=== PATIENT | female | born 1935 | race Caucasian/White ===

== ENCOUNTER 2016-12-26 18:04 | Emergency (ER) | payer MEDICARE, OTHER ==
[2016-12-26 18:04] VITALS: BMI 32.8
[2016-12-26 19:26] VITALS: PULSE 83; RESP 16; TEMP 98.3; O2SAT 96
--- NOTE | 2016-12-26 19:50 | ED PDOC ---
HPI: Trauma/Fall - HPI Time Seen by Provider: 12/26/16 19:35 Chief Complaint (Nursing): Trauma Chief Complaint (Provider): fall History Per: Patient History/Exam Limitations: no limitations Onset/Duration Of Symptoms: Hrs (x 1) Injury Occurred (Timing): Hours Ago: (x1) Associated Symptoms: denies: Dizziness, Dazed, LOC, Seizure, Memory Impairment Additional Complaint(s): Syl Argueta is an 81 year old female, with a previous medical history of breast cancer, lung cancer, DVT, rheumatoid arthritis and multiple myeloma, who presents to the ED for the evaluation of head trauma she sustained an hour prior to arrival. Pt reports turning to the side and stumbling which caused her to fall and hit her head. She denies dizziness or syncope prior to all. Pt reports no loss of consciousness, dizziness, headache, changes in speech, changes in vision, numbness, tingling or impaired memory since fall. Patient states she came to ED because she is on coumadin. INR level was measured last week and it was 2.4. PMD: Lawrence aDi MD in [facility] Past Medical History Reviewed: Historical Data, Nursing Documentation, Vital Signs Vital Signs: Last Vital Signs Temp 98.3 F 12/26/16 19:22 Pulse 83 12/26/16 19:22 Resp 16 12/26/16 19:22 BP 164/86 H 12/26/16 19:22 Pulse Ox 96 12/26/16 19:22 - Medical History PMH: Anemia, Atrial Fibrillation, Deep Vein Thrombosis, Hypothyroidism, Rheumatoid Arthritis - Surgical History Other surgeries: lung resection, right breast surgery, thyroidectomy, parathyroid surgery x 2 - Family History Family History: States: No Known Family Hx - Living Arrangements Living Arrangements: Alone - Social History Current smoker - smoking cessation education provided: No Ex-Smoker (has not smoked in the last 12 months): No Alcohol: None Drugs: Denies - Home Medications Home Medications: Ambulatory Orders Medication Instructions Recorded Levothyroxine Sodium [Levoxyl] 100 mcg PO DAILY 12/26/16 Methotrexate/Pf [Rasuvo] 20 mg SC QWK 12/26/16 Warfarin [Coumadin] 3.5 mg PO DAILY 12/26/16 - Allergies Allergies/Adverse Reactions: Allergies Allergy/AdvReac Type Severity Reaction Status Date / Time No Known Allergies Allergy Verified 12/26/16 19:22 Review of Systems ROS Statement: Except As Marked, All Systems Reviewed And Found Negative Eyes: Negative for: Vision Change Gastrointestinal: Negative for: Nausea, Vomiting Neurological: Positive for: Other (head injury s/p fall, denies dizziness or syncope prior to fall. ). Negative for: Numbness, Incoordination, Change in Speech, Confusion, Altered Mental Status, Headache, Dizziness Physical Exam - Reviewed Nursing Documentation Reviewed: Yes Vital Signs Reviewed: Yes - Physical Exam Appears: Positive for: Well, Non-toxic, No Acute Distress Head Exam: Positive for: ATRAUMATIC, NORMAL INSPECTION, NORMOCEPHALIC Skin: Positive for: Normal Color, Warm, Dry Eye Exam: Positive for: Normal appearance, EOMI, PERRL. Negative for: Nystagmus ENT: Positive for: Normal ENT Inspection Neck: Positive for: Normal, Painless ROM Cardiovascular/Chest: Positive for: Regular Rate, Rhythm Respiratory: Positive for: CNT, Normal Breath Sounds Gastrointestinal/Abdominal: Positive for: Normal Exam, Bowel Sounds, Soft. Negative for: Tenderness Back: Positive for: Normal Inspection. Negative for: L CVA Tenderness, R CVA Tenderness, Vertebral Tenderness Extremity: Positive for: Normal ROM. Negative for: Tenderness, Calf Tenderness , Deformity Neurologic/Psych: Positive for: Alert, Oriented, Gait (steady). Negative for: Aphasia, Facial Droop - ECG O2 Sat by Pulse Oximetry: 96 (RA) Pulse Ox Interpretation: Normal - Other Rad CT head X-Ray: Read By Radiologist X-Ray Interpretation: see below Medical Decision Making Medical Decision Making: Initial Impression: 81 year old female with head injury s/p fall Initial Plan: * CT head w/o contrast * Pt declined pain medication in the ED at this time. 21:00 CT head FINDINGS: Brain: Mild atrophy. No intracranial hemorrhage. No mass. Minimal decreased attenuation within periventricular white matter. Chronic lacunar infarct within LEFT basal ganglia. No edema. Ventricles: No hydrocephalus. Bones/joints: No acute fracture. Soft tissues: Unremarkable. Vasculature: Mild atherosclerotic disease of intracranial arteries. Sinuses: Scattered minimal mucosal thickening. Mastoid air cells: No mastoid effusion. Orbits: Unremarkable as visualized. IMPRESSION: 1. No intracranial hemorrhage. 2. Nonspecific white matter changes. 3. Incidental/non-acute findings are described above. Patient aware of CT findings, she was advised to take Tylenol for pain as needed and follow up with primary doctor in 1-2 days. Patient aware she can return to ED at any time if acutely worse. Scribe Attestation: Documented by Ana Dale, acting as a scribe for Nova Shell PA-C. Provider Scribe Attestation: All medical record entries made by the Scribe were at my direction and personally dictated by me. I have reviewed the chart and agree that the record accurately reflects my personal performance of the history, physical exam, medical decision making, and the department course for this patient. I have also personally directed, reviewed, and agree with the discharge instructions and disposition. Disposition - Clinical Impression Clinical Impression: Head injury - Patient ED Disposition Is Patient to be Admitted: No Counseled Patient/Family Regarding: Studies Performed, Diagnosis, Need For Followup - Disposition Referrals: [facility] [Outside] Disposition: Routine/Home Disposition Time: 21:07 Condition: STABLE Additional Instructions: Tylenol as needed for pain. Follow up with primary doctor in 1-2 days. Return to ED any time if acutely worse. Instructions: Head Injury (ED)
--- NOTE | 2016-12-26 21:01 | CT ---
EXAM: CT Head Without Intravenous Contrast. CLINICAL HISTORY: 81 years old, female; Injury or trauma; Fall; Initial encounter; Concussion / head injury; With loss of consciousness; Not specified; Patient HX: Pt states: Ca breast, ca. Lung TECHNIQUE: Axial computed tomography images of the head/brain without intravenous contrast. This CT exam was performed using one or more of the following dose reduction techniques: automated exposure control, adjustment of the mA and/or kV according to patient size, and/or use of iterative reconstruction technique. Coronal and sagittal reformatted images were created and reviewed. COMPARISON: CT - HEAD^HEAD ROUTINE (ADULT) 06/07/2010 9:55:31 AM FINDINGS: Brain: Mild atrophy. No intracranial hemorrhage. No mass. Minimal decreased attenuation within periventricular white matter. Chronic lacunar infarct within LEFT basal ganglia. No edema. Ventricles: No hydrocephalus. Bones/joints: No acute fracture. Soft tissues: Unremarkable. Vasculature: Mild atherosclerotic disease of intracranial arteries. Sinuses: Scattered minimal mucosal thickening. Mastoid air cells: No mastoid effusion. Orbits: Unremarkable as visualized. IMPRESSION: 1. No intracranial hemorrhage. 2. Nonspecific white matter changes. 3. Incidental/non-acute findings are described above.
[2016-12-26 21:26] VITALS: BP 127/67
== END 2016-12-26 21:14 | disposition home or self-care (01) ==
LOC: H.ER 18:04
DX: S09.90XA Unspecified injury of head, initial encounter (principal); W19.XXXA Unspecified fall, initial encounter; Y93.9 Activity, unspecified

== ENCOUNTER 2017-07-01 06:03 | Emergency (ER) | payer MEDICARE, OTHER ==
[2017-07-01 06:04] VITALS: BMI 32.8
[2017-07-01 06:26] VITALS: BP 154/75; PULSE 81; RESP 18; TEMP 97.6; O2SAT 98
--- NOTE | 2017-07-01 06:50 | ED PDOC ---
HPI: Female Pain Time Seen by Provider: 07/01/17 06:17 Chief Complaint (Nursing): Female Genitourinary Chief Complaint (Provider): Vaginal bleeding History Per: Patient History/Exam Limitations: no limitations Onset/Duration Of Symptoms: Days (x1) Current Symptoms Are (Timing): Gone Now Additional Complaint(s): Syl is an 82 y/o female who presents to the ED complaining of vaginal bleeding , onset just prior to arrival. Patient is wearing a pessary device for prolapse. She felt some vaginal discomfort when she woke up this morning. The pessary device was moved, and she noticed some clots from the vagina. She denies fever, chest pain, and shortness of breath. Currently there is no bleeding. Patient is on Coumadin for her history of PE and DVT, and was worried about excessive bleeding, which prompted this ED visit. PMD: [facility] provider Past Medical History Reviewed: Historical Data, Nursing Documentation, Vital Signs Vital Signs: Last Vital Signs Temp 97.6 F 07/01/17 06:20 Pulse 81 07/01/17 06:20 Resp 18 07/01/17 06:20 BP 154/75 H 07/01/17 06:20 Pulse Ox 98 07/01/17 06:20 - Medical History PMH: Anemia, Atrial Fibrillation, Deep Vein Thrombosis, HTN, Hypercholesterolemia, Hypothyroidism, Malignancy (Lung cancer), Pulmonary Embolism, Rheumatoid Arthritis Denies: Chronic Kidney Disease - Surgical History Surgical History: Hernia Repair Other surgeries: Hysterectomy - Family History Family History: States: Unknown Family Hx - Social History Current smoker - smoking cessation education provided: No Alcohol: None Drugs: Denies - Home Medications Home Medications: Ambulatory Orders Medication Instructions Recorded Levothyroxine Sodium [Levoxyl] 100 mcg PO DAILY 12/26/16 Methotrexate/Pf [Rasuvo] 20 mg SC QWK 12/26/16 Warfarin [Coumadin] 3.5 mg PO DAILY 12/26/16 - Allergies Allergies/Adverse Reactions: Allergies Allergy/AdvReac Type Severity Reaction Status Date / Time No Known Allergies Allergy Verified 07/01/17 06:20 Review of Systems ROS Statement: Except As Marked, All Systems Reviewed And Found Negative Constitutional: Negative for: Fever Cardiovascular: Negative for: Chest Pain Respiratory: Negative for: Shortness of Breath Genitourinary Female: Positive for: Vaginal Bleeding Physical Exam - Reviewed Nursing Documentation Reviewed: Yes Vital Signs Reviewed: Yes - Physical Exam Appears: Positive for: Non-toxic, No Acute Distress Head Exam: Positive for: ATRAUMATIC, NORMAL INSPECTION, NORMOCEPHALIC Skin: Positive for: Normal Color, Warm, Dry Eye Exam: Positive for: EOMI, Normal appearance, PERRL Neck: Positive for: Normal, Painless ROM, Supple Cardiovascular/Chest: Positive for: Regular Rate, Rhythm. Negative for: Murmur Respiratory: Positive for: Normal Breath Sounds. Negative for: Accessory Muscle Use, Respiratory Distress Gastrointestinal/Abdominal: Positive for: Normal Exam, Soft. Negative for: Tenderness Pelvic Exam: Positive for: External Exam Normal, Speculum Exam Normal (with some blood, but no active bleeding or visible clots), No Masses Extremity: Positive for: Normal ROM. Negative for: Pedal Edema, Deformity Neurologic/Psych: Positive for: Alert, Oriented Comments: UGO Velasquez chaperoned this pelvic exam - Laboratory Results Result Diagrams: 07/01/17 08:10 07/01/17 08:10 - ECG O2 Sat by Pulse Oximetry: 98 (RA) Pulse Ox Interpretation: Normal Medical Decision Making Medical Decision Making: Initial Impression: Vaginal bleeding, currently resolved. Most likely related to trauma from device movement and anticoagulant use Time: 6:41 Initial Plan: --BMP --CBC --PTT --Prothrombin time --Blood type and screen --Pending reevaluation and final disposition Scribe Attestation: Documented by Lashon Brewer, acting as a scribe for Tanner Leal MD Provider Scribe Attestation: All medical record entries made by the Scribe were at my direction and personally dictated by me. I have reviewed the chart and agree that the record accurately reflects my personal performance of the history, physical exam, medical decision making, and the department course for this patient. I have also personally directed, reviewed, and agree with the discharge instructions and disposition. Disposition - Clinical Impression Clinical Impression: Vaginal bleeding - Patient ED Disposition Is Patient to be Admitted: Transfer of Care Counseled Patient/Family Regarding: Studies Performed, Diagnosis - Disposition Disposition: Transfer of Care Disposition Time: 07:00 Condition: STABLE Additional Instructions: FOLLOW-UP WITH YOUR OB-DAY CARE SUPERVISOR FOR REEVALUATION. Instructions: Dysfunctional Uterine Bleeding (ED) Forms: [employer] (Icelandic) Patient Signed Over To: Ana Knox
--- NOTE | 2017-07-01 07:18 | ED PDOC ---
- Laboratory Results Result Diagrams: 07/01/17 08:10 07/01/17 08:10 - ECG O2 Sat by Pulse Oximetry: 98 (RA) Pulse Ox Interpretation: Normal Medical Decision Making Medical Decision Making: Receiving sign out: Patient signed out to me by Dr. Leal at 0700 pending labs. Pt states she is followed by [facility] Super[facility] @ [facility], has pelvic ultrasound q2 months, had pelvic ultrasound 2 months ago that was normal. States she has had vaginal bleeding due to pessary in past. Copy of labs given to patient. Scribe Attestation: Documented by Pratima Angelo acting as a scribe for Ana Knox MD. Provider Attestation: All medical record entries made by the Scribe were at my direction and personally dictated by me. I have reviewed the chart and agree that the record accurately reflects my personal performance of the history, physical exam, medical decision making, and the department course for this patient. I have also personally directed, reviewed, and agree with the discharge instructions and disposition. Disposition - Clinical Impression Clinical Impression: Vaginal bleeding - POA Present On Arrival: None - Disposition Disposition: Routine/Home Disposition Time: 09:40 Condition: STABLE Additional Instructions: FOLLOW-UP WITH YOUR OB-SUPERVISOR [employer] FOR REEVALUATION. Instructions: Dysfunctional Uterine Bleeding (ED) Forms: [employer] (Rwandan)
[2017-07-01 08:25] LABS: EOS # 0.1 K/uL (0.0-0.7); EOS % 2.8 % (0.0-4.0); HEMATOCRIT 31.1 % (34.0-47.0); LYMPH # 0.6 K/uL (1.0-4.3); LYMPH % 17.9 % (20.0-40.0); MEAN CELL VOLUME 100.3 fl (81.0-99.0); MEAN CORPUSCULAR HEMOGLOBIN 32.4 pg (27.0-31.0); MEAN CORPUSCULAR HGB CONC 32.3 g/dL (33.0-37.0); MEAN PLATELET VOLUME 9.9 fl (7.2-11.7); MONO # 0.2 K/uL (0.0-0.8); MONO % 4.4 % (0.0-10.0); NEUT # 2.6 K/uL (1.8-7.0); NEUT % 73.9 % (50.0-75.0); RED CELL DISTRIBUTION WIDTH 15.2 % (11.5-14.5); WHITE BLOOD COUNT 3.5 K/uL (4.8-10.8)
[2017-07-01 08:30] LABS: BLOOD UREA NITROGEN 21 mg/dl (7-17); CALCIUM 9.9 mg/dL (8.4-10.2); CARBON DIOXIDE 26 mmol/L (22-30); CHLORIDE 109 mmol/L (98-107); GFR AFRICAN-AMERICAN > 60; GLUCOSE,RANDOM 90 mg/dL (65-105); POTASSIUM 4.5 MMOL/L (3.6-5.0); SODIUM 146 mmol/l (132-148)
[2017-07-01 08:34] LABS: PARTIAL THROMBOPLASTIN TIME 31.6 Seconds (25.6-37.1)
== END 2017-07-01 09:38 | disposition home or self-care (01) ==
LOC: H.ER 06:03
DX: N93.9 Abnormal uterine and vaginal bleeding, unspecified (principal)

== ENCOUNTER 2017-07-08 09:47 | Observation (INO) | payer MEDICARE, OTHER ==
[2017-07-08 09:52] VITALS: BMI 24.6
--- NOTE | 2017-07-08 10:16 | ED PDOC ---
Syncope/Near Syncope/Dizziness Time Seen by Provider: 07/08/17 09:56 Chief Complaint (Provider): Dizzy Spell History Per: Patient History/Exam Limitations: no limitations Onset/Duration Of Symptoms: Mins Activity At Onset Of Symptoms: Standing Fall Associated With With Symptoms: Yes, Positive Injury Additional Complaint(s): Syl Argueta, an 82 year old female, with a past medical history of deep vein thrombosis, multiple myeloma, lung cancer, breast cancer and hypertension is brought into the ED by EMS after the patient experienced a dizzy spell and fell to the ground sustaining an injury to her left shoulder. the patient states that she does not think she hit her head nor does she think she lost consciousness. Denies chest pain and palpitations. Patient currently complaining of left shoulder pain. Of note: Patient is currently on coumadin - Risk Factors PE Risk Factors: Pos: Active Cancer, Previous DVT TAD Risk Factors: Pos: Hypertension Past Medical History Reviewed: Historical Data, Nursing Documentation, Vital Signs Vital Signs: Last Vital Signs Temp 98.6 F 07/08/17 09:50 Pulse 75 07/08/17 09:50 Resp 16 07/08/17 09:50 BP 158/82 H 07/08/17 09:50 Pulse Ox 95 07/08/17 09:50 - Medical History PMH: Anemia, Atrial Fibrillation, Deep Vein Thrombosis, HTN, Hypercholesterolemia, Hypothyroidism, Malignancy (Lung cancer), Pulmonary Embolism, Rheumatoid Arthritis Denies: Chronic Kidney Disease - Surgical History Surgical History: Hernia Repair - Family History Family History: States: Unknown Family Hx - Home Medications Home Medications: Ambulatory Orders Medication Instructions Recorded Levothyroxine Sodium [Levoxyl] 100 mcg PO DAILY 12/26/16 Methotrexate/Pf [Rasuvo] 20 mg SC QWK 12/26/16 Warfarin [Coumadin] 3.5 mg PO DAILY 12/26/16 - Allergies Allergies/Adverse Reactions: Allergies Allergy/AdvReac Type Severity Reaction Status Date / Time No Known Allergies Allergy Verified 07/01/17 06:20 Review of Systems ROS Statement: Except As Marked, All Systems Reviewed And Found Negative Musculoskeletal: Positive for: Shoulder Pain Neurological: Positive for: Dizziness, Other (No LOC or head trauma) Physical Exam - Reviewed Nursing Documentation Reviewed: Yes Vital Signs Reviewed: Yes - Physical Exam Appears: Positive for: Non-toxic, No Acute Distress Head Exam: Positive for: ATRAUMATIC, NORMAL INSPECTION, NORMOCEPHALIC Skin: Positive for: Normal Color, Warm, Dry. Negative for: Rash Eye Exam: Positive for: Normal appearance, EOMI, PERRL. Negative for: Nystagmus Neck: Positive for: Normal, Painless ROM, Supple Cardiovascular/Chest: Positive for: Regular Rate, Rhythm, Chest Non Tender. Negative for: Tachycardia Respiratory: Positive for: Decreased Breath Sounds (left side), Other (lungs clear to auscultation b/l). Negative for: Wheezing, Respiratory Distress Gastrointestinal/Abdominal: Positive for: Normal Exam, Bowel Sounds, Soft. Negative for: Mass, Guarding, Rebound Back: Positive for: Normal Inspection, Other (No spinal tenderness). Negative for: L CVA Tenderness, R CVA Tenderness, Vertebral Tenderness Extremity: Positive for: Normal ROM (Pain on ROM of left shoulder), Tenderness ( Tenderness to left shoulder superiorly.), Other (No ecchymosis to left shoulder ; minimal old bruises to right hand, no deformty or tenderness.). Negative for : Deformity (No deformity of shoulder; no deformity of hip.) Neurologic/Psych: Positive for: Alert, Oriented, Gait. Negative for: Motor/ Sensory Deficits - Laboratory Results Result Diagrams: 07/08/17 10:30 07/08/17 10:30 - ECG O2 Sat by Pulse Oximetry: 95 (RA) Pulse Ox Interpretation: Normal Medical Decision Making Medical Decision Makin Initial Impression: 82 year old presenting with injury to left shoulder Initial Plan: * EKG * CMP * Udip * CBC * D-dimer * Pt/INT * CChest x-ray * Shoulder Xray * Reevaluation 1036 EKG Performed: * Normal sinus rhythm at 75bpm * no acutte ST changes 1117 Chest x-ray HISTORY: Lung Ca COMPARISON: Chest x-ray performed 06/19/15 TECHNIQUE: Chest PA and lateral FINDINGS: LUNGS: Biapical scarring/ atelectasis. Right lower lobe lateral chest opacities may reflect scarring/atelectasis. Linear atelectasis left lung base. Bilateral hilar prominence. Bilateral calcified hilar lymph nodes and or granulomas. Please note that chest x-ray has limited sensitivity for the detection of pulmonary masses. PLEURA: No significant pleural effusion identified. No definite pneumothorax . CARDIOVASCULAR: Heart size appears top normal. OSSEOUS STRUCTURES: Degenerative changes. Osseous demineralization. Distal left clavicle fracture seen on shoulder x-ray is not included on this study. VISUALIZED UPPER ABDOMEN: Elevation of the right hemidiaphragm. OTHER FINDINGS: None. IMPRESSION: Biapical scarring/ atelectasis. Right lower lobe lateral chest opacities may reflect scarring/atelectasis. Linear atelectasis left lung base. Bilateral hilar prominence. Bilateral calcified hilar lymph nodes and or granulomas. Scribe Attestation Documented by Ary Fierro acting as a scribe for Da Geller MD. Provider Attestation All medical record entries made by the Scribe were at my direction and personally dictated by me. I have reviewed the chart and agree that the record accurately reflects my personal performance of the history, physical exam, medical decision making, and the department course for this patient. I have also personally directed, reviewed, and agree with the discharge instructions and disposition. Disposition - Clinical Impression Clinical Impression: Syncope - Patient ED Disposition Is Patient to be Admitted: Yes - Disposition Referrals: FAMILY PROVIDER,NO [Primary Care Provider] - Disposition: Routine/Home Disposition Time: 14:46 Condition: FAIR - Pt Status Changed To: Hospital Disposition Of: Observation - POA Present On Arrival: None
[2017-07-08 10:50] LABS: BASO % 0.7 % (0.0-2.0); EOS # 0.1 K/uL (0.0-0.7); EOS % 2.3 % (0.0-4.0); HEMATOCRIT 31.9 % (34.0-47.0); LYMPH # 0.6 K/uL (1.0-4.3); MEAN CELL VOLUME 101.1 fl (81.0-99.0); MEAN CORPUSCULAR HEMOGLOBIN 32.3 pg (27.0-31.0); MEAN PLATELET VOLUME 9.1 fl (7.2-11.7); MONO # 0.1 K/uL (0.0-0.8); MONO % 3.2 % (0.0-10.0); NEUT # 3.6 K/uL (1.8-7.0); NEUT % 79.8 % (50.0-75.0); NRBC % 0.1 % (0.0-0.0); RED CELL DISTRIBUTION WIDTH 15.2 % (11.5-14.5); WHITE BLOOD COUNT 4.5 K/uL (4.8-10.8)
[2017-07-08 10:52] LABS: ALKALINE PHOSPHATASE 60 U/L (38-126); ALT/SGPT 53 U/L (9-52); AST/SGOT 47 U/L (14-36); BILIRUBIN,TOTAL 0.3 mg/dl (0.2-1.3); BLOOD UREA NITROGEN 27 mg/dl (7-17); CALCIUM 10.2 mg/dL (8.4-10.2); CARBON DIOXIDE 30 mmol/L (22-30); CHLORIDE 107 mmol/L (98-107); GFR AFRICAN-AMERICAN > 60; GLUCOSE,RANDOM 132 mg/dL (65-105); POTASSIUM 4.7 MMOL/L (3.6-5.0); SODIUM 147 mmol/l (132-148)
--- NOTE | 2017-07-08 11:16 | RAD ---
PROCEDURE: Radiographs of the Left Shoulder HISTORY: trauma COMPARISON: Chest x-ray performed 06/19/15 FINDINGS: BONES: Displaced distal left clavicle fracture. The remainder the visualized osseous structures appear intact without acute displaced fracture. The distal clavicle and underlying ribs appear intact. Osseous demineralization. JOINTS: No acute dislocation. Glenohumeral joint space narrowing. SOFT TISSUES: Soft tissue swelling. No evidence of radiopaque foreign body. Calcified granuloma/lymph nodes. IMPRESSION: Displaced distal left clavicle fracture. Associated soft tissue swelling
--- NOTE | 2017-07-08 11:18 | RAD ---
HISTORY: Lung Ca COMPARISON: Chest x-ray performed 06/19/15 TECHNIQUE: Chest PA and lateral FINDINGS: LUNGS: Biapical scarring/ atelectasis. Right lower lobe lateral chest opacities may reflect scarring/atelectasis. Linear atelectasis left lung base. Bilateral hilar prominence. Bilateral calcified hilar lymph nodes and or granulomas. Please note that chest x-ray has limited sensitivity for the detection of pulmonary masses. PLEURA: No significant pleural effusion identified. No definite pneumothorax . CARDIOVASCULAR: Heart size appears top normal. OSSEOUS STRUCTURES: Degenerative changes. Osseous demineralization. Distal left clavicle fracture seen on shoulder x-ray is not included on this study. VISUALIZED UPPER ABDOMEN: Elevation of the right hemidiaphragm. OTHER FINDINGS: None. IMPRESSION: Biapical scarring/ atelectasis. Right lower lobe lateral chest opacities may reflect scarring/atelectasis. Linear atelectasis left lung base. Bilateral hilar prominence. Bilateral calcified hilar lymph nodes and or granulomas. Distal left clavicle fracture seen on shoulder x-ray performed concurrently is not included on this study.
[2017-07-08] MEDS ORDERED: Iodixanol 320 MG/ML 100 ML BOTTLE IV ONE (12:59)
[2017-07-08] MEDS ORDERED: Sodium Chloride 0.9% 50 ML IV ONE (12:59)
--- NOTE | 2017-07-08 13:32 | CT ---
PROCEDURE: CT HEAD WITHOUT CONTRAST. HISTORY: r/o bleed COMPARISON: Noncontrast head CT performed 12/26/16 TECHNIQUE: Axial computed tomography images were obtained through the head/brain without intravenous contrast. Diffuse atrophy with prominence of the ventricles and sulci noted. Radiation dose: Total exam DLP = 846.10 mGy-cm. This CT exam was performed using one or more of the following dose reduction techniques: Automated exposure control, adjustment of the mA and/or kV according to patient size, and/or use of iterative reconstruction technique. FINDINGS: Examination limited by artifact. HEMORRHAGE: No intracranial hemorrhage. BRAIN: Diffuse atrophy with prominence of the ventricles and sulci noted. No mass effect or edema. Scattered periventricular and subcortical white matter hypodensities, which are nonspecific, but often seen with chronic microvascular ischemic disease. Chronic appearing left basal ganglia lacunar infarct measures approximately 5 mm. Please note that MRI with diffusion imaging is more sensitive in the detection of acute ischemic event. VENTRICLES: No hydrocephalus. CALVARIUM: Unremarkable. PARANASAL SINUSES: Unremarkable as visualized. No significant inflammatory changes. MASTOID AIR CELLS: Unremarkable as visualized. No inflammatory changes. OTHER FINDINGS: None. IMPRESSION: Generalized atrophy. Nonspecific white matter changes as above. Chronic appearing left basal ganglia lacunar infarct measures approximately 5 mm.
--- NOTE | 2017-07-08 14:42 | CT ---
CTA chest PE protocol Indication: h/o DVT, syncope, lung cancer Technique: Contiguous axial images were obtained through the chest with intravenous contrast enhancement. Sagittal and coronal reconstructions were generated and reviewed. This CT exam was performed using 1 or more of the falling dose reduction techniques: Automated exposure control, adjustment of the MAA and/or kV according to patient size, and/or use of iterative reconstruction technique. IV Contrast: 99 cc Visipaque 320 Radiation dose (DLP): 423.83 MGy-cm. Comparison: Chest xray performed earlier the same day Findings: The mediastinal and hilar vascular structures appear within normal limits. The heart appears within normal limits of size. Bilateral calcified hilar lymph nodes. Thin linear density evident within the main pulmonary artery appears consistent with artifact rather than pulmonary embolus. Otherwise no evidence to suggest central or segmental pulmonary embolus evident. Scarring atelectasis at the right upper lobe. Additional scarring with associated calcification or granuloma at the right middle lobe (series 4, image 91). 16 x 9 mm pleural based right lower lobe nodular density with associated calcification. No pleural effusion. No pneumothorax. Moderate to large hiatal hernia. Limited visualized portions of the upper abdomen demonstrates numerous splenic calcifications, likely granulomas. 11 mm nodular density and associated calcification or clip, right breast soft tissues. Diffuse osseous demineralization. Degenerative changes. Impression: Thin linear density evident in the main pulmonary artery, appears consistent with artifact. No evidence of large central or segmental pulmonary embolus identified. Correlate clinically. Bilateral calcified hilar lymph nodes. Scarring atelectasis at the right upper lobe. Additional scarring with associated calcification or granuloma at the right middle lobe. 16 x 9 mm pleural based right lower lobe nodular density with associated calcification. Numerous splenic calcifications, likely granulomas. Moderate to large hiatal hernia. 11 mm nodular density and associated calcification or clip, right breast soft tissues. Findings discussed with Dr. Geller on 07/08/17 at 2:38 p.m.
[2017-07-08] MEDS ORDERED: Oxycodone/Acetaminophen 5/325 mg Tab PO PRN (16:05)
[2017-07-08] MEDS ORDERED: METHOTREXATE 20 MG SC SCH (16:15)
--- NOTE | 2017-07-08 16:44 | CP.PCM.HP ---
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 She denies any head trauma and states that she does not think that she completely lost her conciousness. She admits to having dizziness over the past 2 months which has been getting worse. The patient fell on her left shoulder. In the ED, CT head was negative for acute bleed or other acute intracranial abnormality. X ray of the left shoulder shows a minimally displaced clavicle fracture on the left. Given the patient's history, she is to be placed on telemetry observation for further workup from neurology and for pain control. Present on Admission - Present on Admission Any Indicators Present on Admission: Yes History of DVT/PE: Yes History of Uncontrolled Diabetes: No Urinary Catheter: No Decubitus Ulcer Present: No Review of Systems - Hematologic/Lymphatic Additional comments: CONSTITUTIONAL: c/o fatigue. No weight loss, fever, chills, weakness. HEENT: Eyes: No diplopia or blurred vision. ENT: No earache, sore throat or runny nose. CARDIOVASCULAR: No pressure, squeezing, strangling, tightness, heaviness or aching about the chest, neck, axilla or epigastrium. RESPIRATORY: No cough, shortness of breath, PND or orthopnea. GASTROINTESTINAL: No nausea, vomiting or diarrhea. GENITOURINARY: No dysuria, frequency or urgency. MUSCULOSKELETAL: No muscle, back pain, joint pain or stiffness. SKIN: No change in skin, hair or nails. NEUROLOGIC: Presyncope, dizziness. No paresthesias, fasciculations, seizures or weakness. PSYCHIATRIC: No disorder of thought or mood. ENDOCRINE: No heat or cold intolerance, polyuria or polydipsia. HEMATOLOGICAL: No easy bruising or bleeding. Past Patient History - Infectious Disease Hx of Infectious Diseases: None - Tetanus Immunizations Tetanus Immunization: Unknown - Past Medical History & Family History Past Medical History?: Yes Past Family History: Reviewed and not pertinent - Past Social History Smoking Status: Never Smoked Alcohol: None Home Situation {Lives}: Alone - CARDIAC Hx Atrial Fibrillation: Yes Hx Hypercholesterolemia: Yes Hx Hypertension: Yes - PULMONARY Hx Pulmonary Embolism: Yes - NEUROLOGICAL Hx Neurological Disorder: No - HEENT Hx HEENT Problems: No - RENAL Hx Chronic Kidney Disease: No - ENDOCRINE/METABOLIC Hx Hypothyroidism: Yes - HEMATOLOGICAL/ONCOLOGICAL Hx Anemia: Yes - INTEGUMENTARY Hx Dermatological Problems: No - MUSCULOSKELETAL/RHEUMATOLOGICAL Hx Rheumatoid Arthritis: Yes - GASTROINTESTINAL Hx Gastrointestinal Disorders: No - GENITOURINARY/GYNECOLOGICAL Hx Genitourinary Disorders: No Other/Comment: breast CA - PSYCHIATRIC Hx Psychophysiologic Disorder: No Hx Substance Use: No - SURGICAL HISTORY Hx Surgeries: Yes Hx Hysterectomy: Yes Hx Parathyroidectomy: Yes Hx Thyroidectomy: Yes Other/Comment: Hx of Lumpectomy for Breast Ca, Pt did not have RT or Chemoterapy Rx, Pt has Hx of Vaginal Pessary. - ANESTHESIA Hx Anesthesia: Yes Hx Anesthesia Reactions: No Meds Allergies/Adverse Reactions: Allergies Allergy/AdvReac Type Severity Reaction Status Date / Time No Known Allergies Allergy Verified 07/01/17 06:20 Physical Exam - Additional Findings Additional findings: GENERAL: The patient is a well-developed, cachectic female in no apparent distress. Alert and oriented x3. HEENT: Head is normocephalic and atraumatic. Extraocular muscles are intact. Pupils are equal, round, and reactive to light and accommodation. Nares appeared normal. Mouth is well hydrated and without lesions. Mucous membranes are moist. NECK: Supple. No carotid bruits. No lymphadenopathy or thyromegaly. LUNGS: Clear to auscultation. HEART: Regular rate and rhythm without murmur. ABDOMEN: Soft, nontender, and nondistended. Positive bowel sounds. No hepatosplenomegaly was noted. EXTREMITIES: Without any cyanosis, clubbing, rash, lesions or edema. NEUROLOGIC: Cranial nerves II through XII are grossly intact. No focal neurological deficits PSYCHOSOCIAL: The patient is in a good mood. No signs of depression SKIN: No ulceration or induration present. Results - Vital Signs Recent Vital Signs: Last Vital Signs Temp 987.2 F H 07/08/17 14:50 Pulse 79 07/08/17 14:50 Resp 20 10/08/17 14:50 BP 147/88 07/08/17 14:50 Pulse Ox 96 07/08/17 14:50 - Labs Result Diagrams: 07/08/17 10:30 07/08/17 10:30 Labs: Laboratory Results - last 24 hr 07/08/17 07/08/17 07/08/17 10:30 10:30 10:30 WBC 4.5 L RBC 3.15 L Hgb 10.2 L Hct 31.9 L MCV 101.1 H MCH 32.3 H MCHC 32.0 L RDW 15.2 H Plt Count 173 MPV 9.1 Neut % (Auto) 79.8 H Lymph % (Auto) 14.0 L [place] % (Auto) 3.2 Eos % (Auto) 2.3 Baso % (Auto) 0.7 Neut # 3.6 Lymph # 0.6 L [place] # 0.1 Eos # 0.1 Baso # 0.0 PT 22.0 H INR 1.9 H D-Dimer, Quantitative 1892 H Sodium 147 Potassium 4.7 Chloride 107 Carbon Dioxide 30 Anion Gap 15 BUN 27 H Creatinine 1.0 Est GFR ( Amer) > 60 Est GFR (Non-Af Amer) 53 Random Glucose 132 H Calcium 10.2 Total Bilirubin 0.3 AST 47 H ALT 53 H D Alkaline Phosphatase 60 Total Protein 8.0 Albumin 4.1 Globulin 3.9 Albumin/Globulin Ratio 1.0 Assessment & Plan - Assessment and Plan (Free Text) Plan: ASSESSMENT - Presyncope with history of dizziness and vertigo x 2 months, r/o brain mets, r /o - Fall with sustained injury, left sided minimally displaced clavicle fracture - History of breast, lung cancer - Multiple Myeloma - Rheumatoid arthritis - 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 OT consult - Continue home vitamins - Continue Synthroid 100 mcg po daily. Check TSH - Continue Methotrexate for RA control - Continue Coumadin for DVT/PE prophylaxis. Check INR daily - toll test worker consultation as patient lives alone with increasing weakness; likely to need further assistance at home. - Estimated LOS < 2midnights
[2017-07-09 05:38] LABS: BASO % 0.4 % (0.0-2.0); EOS # 0.1 K/uL (0.0-0.7); EOS % 2.3 % (0.0-4.0); HEMATOCRIT 32.4 % (34.0-47.0); LYMPH # 0.8 K/uL (1.0-4.3); LYMPH % 15.4 % (20.0-40.0); MEAN CELL VOLUME 100.2 fl (81.0-99.0); MEAN CORPUSCULAR HEMOGLOBIN 32.7 pg (27.0-31.0); MEAN CORPUSCULAR HGB CONC 32.7 g/dL (33.0-37.0); MEAN PLATELET VOLUME 9.5 fl (7.2-11.7); MONO # 0.3 K/uL (0.0-0.8); MONO % 5.6 % (0.0-10.0); NEUT # 3.7 K/uL (1.8-7.0); NEUT % 76.3 % (50.0-75.0); NRBC % 0.1 % (0.0-0.0); WHITE BLOOD COUNT 4.9 K/uL (4.8-10.8)
[2017-07-09 05:39] LABS: BLOOD UREA NITROGEN 19 mg/dl (7-17); CARBON DIOXIDE 30 mmol/L (22-30); CHLORIDE 105 mmol/L (98-107); GFR AFRICAN-AMERICAN > 60; GLUCOSE,RANDOM 95 mg/dL (65-105); POTASSIUM 4.3 MMOL/L (3.6-5.0); SODIUM 146 mmol/l (132-148)
[2017-07-09 06:08] LABS: THYROID STIMULATING HORMONE < 0.02 mIU/ML (0.46-4.68)
[2017-07-09] MEDS ORDERED: Levothyroxine 100 MCG TAB PO SCH (06:30)
[2017-07-09] MEDS ORDERED: Multivitamin With Minerals Tab PO SCH (09:00)
--- NOTE | 2017-07-09 10:21 | CARD ---
APPROVED REPORT EKG Measurement Heart [id number] <Conclusion> Normal sinus rhythm Normal ECG
[2017-07-09 16:17] VITALS: BP 136/74; PULSE 87; RESP 20; TEMP 98.5; O2SAT 95
--- NOTE | 2017-07-09 16:49 | MRI ---
PROCEDURE: MRI BRAIN WITHOUT CONTRAST HISTORY: vertigo COMPARISON: Head CT 07/08/2017. TECHNIQUE: Multiplanar, multisequence MR images of the brain were obtained without intravenous contrast enhancement. FINDINGS: HEMORRHAGE: None DWI: No evidence of an acute or early subacute infarction. BRAIN PARENCHYMA: Diffuse expansion of the ventriculosulcal and cisternal spaces is appreciated with white matter lucency compatible with diffuse cerebral atrophy and chronic microangiopathy. There is no mass-effect appreciated and no suspicious extra-axial collection identified. No interval intracranial hemorrhage identified. The midline brain and appears unremarkable including the corpus callosum and craniocervical junction. A dilated perivascular seen at the inferior left basal ganglia. VENTRICLES: Unremarkable. No hydrocephalus. CRANIUM: Unremarkable. ORBITS: Grossly unremarkable. PARANASAL SINUSES/MASTOIDS: Clear VASCULAR SYSTEM: Skull base flow voids intact. OTHER FINDINGS: None. IMPRESSION: Age related neuro neuro degenerative changes are reiterated without acute intracranial findings as discussed above. Follow up CT or MRI are available if clinically warranted.
--- NOTE | 2017-07-09 17:17 | CON ---
NEUROLOGY CONSULTATION DATE: 07/09/2017 CHIEF COMPLAINT: Presyncope. HISTORY OF PRESENT ILLNESS: An 82-year-old woman with history of breast cancer, status post lumpectomy; lung cancer; multiple myeloma; DVT, status post IVC filter, on Coumadin; history of hypertension; paroxysmal AFib; hypercholesterolemia; hypothyroidism, status post thyroidectomy; parathyroidectomy x2; history of PE; rheumatoid arthritis, taking methotrexate, came in because she was lightheaded and had fall over her doorstep and fell in front of her door while she was opening it. No head trauma. She thinks she did not completely loss her conscious. She was having lightheadedness. She was having multiple falls in the past, severely deconditioned. She was also found to be dehydrated. CAT scan of the head showed no acute intracranial abnormalities or chronic ischemic changes. REVIEW OF SYSTEMS: A 14-point review of systems negative except in the HPI. PAST MEDICAL HISTORY: History of breast cancer, status post lumpectomy; lung cancer; multiple myeloma; DVT, status post IVC filter, on Coumadin; hypertension; parathyroidectomy; history of thyroidectomy; hypothyroidism; hypercholesterolemia; rheumatoid arthritis. MEDICATIONS: Reviewed by nurse per reconciliation sheet. ALLERGIES: NO KNOWN DRUG ALLERGIES. SOCIAL HISTORY: No illicit drug use, smoking, or EtOH abuse. PHYSICAL EXAMINATION: VITAL SIGNS: Temperature 98.2, pulse 80, blood pressure 131/71, respiratory rate of 18, oxygen saturation 96% by room air. GENERAL: The patient is sitting up in bed, no acute distress. HEENT: Atraumatic and normocephalic. PERRLA. Extraocular muscles intact. NECK: Supple. No JVD. No adenopathy noted. LUNGS: Clear to auscultation. No adventitious sounds. HEART: S1 and S2, normal rate and rhythm. No murmurs, rubs, or gallops. ABDOMEN: Soft, nontender, and nondistended. Bowel sounds present. EXTREMITIES: No clubbing. No cyanosis. Peripheral pulses 2+ bilaterally. NEUROLOGIC: The patient is alert and oriented to person, place, month and year. Speech is fluent without any errors. Cranial nerves II through XII are intact. Motor: Moves all extremities equally. No pronator drift seen. Sensory: Decreased light touch and pinprick up to the calves bilaterally. Decreased vibration of the toes. DTRs are 2+ throughout and absent at the knees and ankles. Coordination: [id number] intact. Gait is deferred for now. LABORATORY DATA: Sodium is 146, potassium 4.3, chloride 105, carbon dioxide 30, BUN of 19, creatinine 0.9, and random glucose 95. ASSESSMENT AND PLAN: This is an 82-year-old woman with past medical history of rheumatoid arthritis; breast cancer, status post lumpectomy; lung cancer; multiple myeloma; deep venous thrombosis, status post inferior vena cava filter, on Coumadin; hypothyroidism; history of hypercholesterolemia; parathyroidectomy; history of pulmonary embolism, who came in for near-syncope and lightheadedness. Initially, it looked likely secondary to generalized weakness from superimposed underlying dehydration. The frequent falls are likely secondary to underlying peripheral neuropathy with underlying history of multiple myeloma and rheumatoid arthritis. At this time, we recommend MRI of the brain to assess for any acute intracranial abnormality. If negative, we recommend physical therapy and occupational therapy evaluation, also some form of subacute rehab, possibly. The patient lives at home and will likely need assistance at home and can follow up with me in my office for neuropathy workup. Recommended gentle hydration and correct metabolic derangements and avoid sudden drop in blood pressures. At this time, continue current present medical management. Thank you for this consult. Andres Tee MD
--- NOTE | 2017-07-09 17:32 | CP.PCM.DIS ---
Provider - Provider Date of Admission: 07/08/17 14:45 Attending physician: Doe Cochran DO Primary care physician: [facility] FAMILY PROVIDER Consults: neurology consult PT consult Time Spent in preparation of Discharge (in minutes): 20 Hospital Course - Lab Results Lab Results: Most Recent Lab Values WBC 4.9 K/uL (4.8-10.8) 07/09/17 04:30 RBC 3.23 Mil/uL (3.80-5.20) L 07/09/17 04:30 Hgb 10.6 g/dL (12.0-16.0) L 07/09/17 04:30 Hct 32.4 % (34.0-47.0) L 07/09/17 04:30 MCV 100.2 fl (81.0-99.0) H 07/09/17 04:30 MCH 32.7 pg (27.0-31.0) H 07/09/17 04:30 MCHC 32.7 g/dL (33.0-37.0) L 07/09/17 04:30 RDW 15.0 % (11.5-14.5) H 07/09/17 04:30 Plt Count 174 K/uL (130-400) 07/09/17 04:30 MPV 9.5 fl (7.2-11.7) 07/09/17 04:30 Neut % (Auto) 76.3 % (50.0-75.0) H 07/09/17 04:30 Lymph % (Auto) 15.4 % (20.0-40.0) L 07/09/17 04:30 [place] % (Auto) 5.6 % (0.0-10.0) 07/09/17 04:30 Eos % (Auto) 2.3 % (0.0-4.0) 07/09/17 04:30 Baso % (Auto) 0.4 % (0.0-2.0) 07/09/17 04:30 Neut # 3.7 K/uL (1.8-7.0) 07/09/17 04:30 Lymph # 0.8 K/uL (1.0-4.3) L 07/09/17 04:30 [place] # 0.3 K/uL (0.0-0.8) 07/09/17 04:30 Eos # 0.1 K/uL (0.0-0.7) 07/09/17 04:30 Baso # 0.0 K/uL (0.0-0.2) 07/09/17 04:30 PT 21.3 Seconds (9.8-13.1) H 07/09/17 04:30 INR 1.9 (0.9-1.2) H 07/09/17 04:30 D-Dimer, Quantitative 1892 ng/mlDDU (0-230) H 07/08/17 10:30 Sodium 146 mmol/l (132-148) 07/09/17 04:30 Potassium 4.3 MMOL/L (3.6-5.0) 07/09/17 04:30 Chloride 105 mmol/L (98-107) 07/09/17 04:30 Carbon Dioxide 30 mmol/L (22-30) 07/09/17 04:30 Anion Gap 15 (10-20) 07/09/17 04:30 BUN 19 mg/dl (7-17) H 07/09/17 04:30 Creatinine 0.9 mg/dL (0.7-1.2) 07/09/17 04:30 Est GFR ( Amer) > 60 07/09/17 04:30 Est GFR (Non-Af Amer) > 60 07/09/17 04:30 Random Glucose 95 mg/dL (65-105) 07/09/17 04:30 Calcium 10.0 mg/dL (8.4-10.2) 07/09/17 04:30 Total Bilirubin 0.3 mg/dl (0.2-1.3) 07/08/17 10:30 AST 47 U/L (14-36) H 07/08/17 10:30 ALT 53 U/L (9-52) H D 07/08/17 10:30 Alkaline Phosphatase 60 U/L (38-126) 07/08/17 10:30 Total Protein 8.0 G/DL (6.3-8.2) 07/08/17 10:30 Albumin 4.1 g/dL (3.5-5.0) 07/08/17 10:30 Globulin 3.9 gm/dL (2.2-3.9) 07/08/17 10:30 Albumin/Globulin Ratio 1.0 (1.0-2.1) 07/08/17 10:30 TSH 3rd Generation < 0.02 mIU/ML (0.46-4.68) L 07/09/17 04:30 - Hospital Course Hospital Course: 82 year old female with a past medical history of Breast cancer s/p lumpectomy, lung cancer, multiple myeloma, 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 She denies any head trauma and stated that she does not think that she completely lost her consciousness. She admits to having dizziness and benign positional vertigo for a long time. The patient fell on her left shoulder. In the ED, CT head was negative for acute bleed or other acute intracranial abnormality. X ray of the left shoulder showed a minimally displaced clavicle fracture on the left. Given the patient's history, she was placed on telemetry for observation for further workup from neurology and for pain control. Left arm was placed on a sling and patient counselled to keep left arm immobilized for 2-3 weeks until clavicular fracture heals. Her director call center sales showed no arrythmias Her TSH noted to be very decreased at 0.02. She was on Synthroid 100 mcg po daily so her synthroid dose decreased to 50 mcg daily MRI of the brain showed no acute pathology neurology consulted and recommended PT Physical therapy consulted and recommended TCU vs [facility] but patient refusing physical therapy at present stating that she would like to go home since she can ambulate with her cane, can take care of herself for now and that she has her niece taking care of her. She has an appointment follow up in 3 day swith her oncologist for her multiple myeloma diagnosis and does not want to miss her appointment. patient at present is hemodynnamically stable, denies dizziness, weakness, vertigo WILL DISCHARGE PATIENT HOME follow up with her PMD / oncologist can take meclizine PRN for her benign positional vertigo DX; Benign positional vertigo syncopal episode of unclear etioolgy Fall with sustained injury left sided minimally displaced clavicle fracture History of breast, lung cancer Multiple Myeloma Rheumatoid arthritis History of DVT/PE on Coumadin and with an IVC filter Hypertension anemia of chronic disease Hypothyroidism- uncontrolled. decrease Synthroid to 50 Mcg po daily paroxysmal Afib Discharge Exam - Head Exam Head Exam: ATRAUMATIC, NORMAL INSPECTION, NORMOCEPHALIC - Eye Exam Eye Exam: EOMI, PERRL Pupil Exam: NORMAL ACCOMODATION - ENT Exam ENT Exam: Mucous Membranes Moist, Normal Exam - Neck Exam Neck exam: Full Rom, Normal Inspection - Respiratory Exam Respiratory Exam: Clear to PA & Lateral, NORMAL BREATHING PATTERN. absent: Rhonchi, Wheezes, Respiratory Distress - Cardiovascular Exam Cardiovascular Exam: REGULAR RHYTHM, RRR, +S1, +S2. absent: JVD - GI/Abdominal Exam GI & Abdominal Exam: Normal Bowel Sounds, Soft. absent: Distended, Guarding, Rebound, Tenderness - Rectal Exam Rectal Exam: Deferred - Extremities Exam Extremities exam: normal capillary refill, normal inspection, pedal pulses present - Back Exam Back exam: NORMAL INSPECTION - Neurological Exam Neurological exam: Alert, CN II-XII Intact, Oriented x3 - Psychiatric Exam Psychiatric exam: Normal Affect - Skin Skin Exam: Dry, Intact, Warm Discharge Plan - Discharge Medications Prescriptions: Levothyroxine [Synthroid] 50 mcg PO DAILY@0630 #30 tab Meclizine [Meclizine*] 25 mg PO Q6 #30 tab - Follow Up Plan Condition: STABLE Disposition: HOME/ ROUTINE Patient education suggested?: Yes Instructions: Syncope (DC), Benign Paroxysmal Positional Vertigo (DC) Referrals: FAMILY PROVIDER,NO [Primary Care Provider] -
[2017-07-10] MEDS ORDERED: Levothyroxine 50 MCG TAB PO SCH (06:30)
== END 2017-07-09 18:40 | disposition home or self-care (01) ==
LOC: H.ER 09:47 → SUPCPDRO 09:47 → H.ERHOLD 14:45 → H.TEL 16:49
PROVIDERS: ADMIT Internal Medicine; ATTEND Internal Medicine
DX: H81.10 Benign paroxysmal vertigo, unspecified ear (principal); R55 Syncope and collapse; S42.002A Fracture of unspecified part of left clavicle, initial encounter for closed fracture; W19.XXXA Unspecified fall, initial encounter; Y93.9 Activity, unspecified; Y92.9 Unspecified place or not applicable; I48.0 Paroxysmal atrial fibrillation; C90.00 Multiple myeloma not having achieved remission; D63.8 Anemia in other chronic diseases classified elsewhere; E78.00 Pure hypercholesterolemia, unspecified; E89.0 Postprocedural hypothyroidism; I10 Essential (primary) hypertension; M06.9 Rheumatoid arthritis, unspecified; Z79.01 Long term (current) use of anticoagulants; Z85.3 Personal history of malignant neoplasm of breast; Z86.718 Personal history of other venous thrombosis and embolism; Z86.711 Personal history of pulmonary embolism; Z85.118 Personal history of other malignant neoplasm of bronchus and lung; R29.6 Repeated falls; E86.0 Dehydration
CPT/HCPCS: 36415; 70450; 70551; 71020; 71275; 73030; 80048; 80053; 84443; 85025; 85378; 85610; 93005; 97162; 97166; 99285; G0378; G8978; G8979; G8987; G8988; Q9967

== ENCOUNTER 2017-07-28 10:06 | Inpatient (IN) | payer MEDICARE, OTHER ==
[2017-07-28 10:06] VITALS: BMI 24.6
[2017-07-28] MEDS ORDERED: Sodium Chloride 0.9% 1,000 ML IV STA ×2 (10:40→13:24)
--- NOTE | 2017-07-28 11:20 | RAD ---
HISTORY: SOB COMPARISON: 07/08/2017 FINDINGS: LUNGS: The lungs are well inflated and clear. No focal consolidation. PLEURA: There is chronic right pleural thickening. No significant pleural effusion identified, no pneumothorax apparent. CARDIOVASCULAR: Normal. OSSEOUS STRUCTURES: Postsurgical changes and right-sided ribs. Stable deformity in the acromioclavicular joint. VISUALIZED UPPER ABDOMEN: Normal. OTHER FINDINGS: There is chronic elevation of the right hemidiaphragm. IMPRESSION: No active pulmonary disease.
[2017-07-28 11:43] LABS: BASO % 0.4 % (0.0-2.0); EOS % 0.6 % (0.0-4.0); HEMATOCRIT 33.7 % (34.0-47.0); LYMPH # 0.5 K/uL (1.0-4.3); LYMPH % 7.5 % (20.0-40.0); MEAN CELL VOLUME 100.5 fl (81.0-99.0); MEAN CORPUSCULAR HEMOGLOBIN 32.4 pg (27.0-31.0); MEAN CORPUSCULAR HGB CONC 32.2 g/dL (33.0-37.0); MEAN PLATELET VOLUME 9.5 fl (7.2-11.7); MONO # 0.1 K/uL (0.0-0.8); NEUT % 89.5 % (50.0-75.0); NRBC % 0.1 % (0.0-0.0); RED CELL DISTRIBUTION WIDTH 15.3 % (11.5-14.5); WHITE BLOOD COUNT 6.7 K/uL (4.8-10.8)
--- NOTE | 2017-07-28 11:44 | ED PDOC ---
Syncope/Near Syncope/Dizziness Time Seen by Provider: 07/28/17 10:10 Chief Complaint (Nursing): Weakness/Neurological Deficit Chief Complaint (Provider): Dizziness and Presyncope History Per: Patient History/Exam Limitations: no limitations Onset/Duration Of Symptoms: Hrs Current Symptoms Are (Timing): Still Present Fall Associated With With Symptoms: No Additional Complaint(s): Syl Argueta, an 82 year old female, with a past medical history of lung cancer (status post surgery), multiple myeloma, deep vein thrombosis, atrial fibrillation, rheumatoid arthritis (currently on methotrexate) presents to the ED complaining of dizziness, presyncope and dark stools x2 days.The patient was accompanied by her neighbour who states that earlier this morning she was pallor and sweaty. Denies abdominal pain, cough, fever, vomiting, chest pain and shortness of breath. Of note: The patient reports that she has been off of coumadin and may restart next week if allowed by PMD. PMD: [facility] - Symptoms Of CVA Recent Aspirin Use: Unknown Current Coumadin Use?: No (currently off of coumadin scheduled to restart next week) Recent Head Trauma: No - Risk Factors PE Risk Factors: Pos: Active Cancer, Previous DVT, Previous PE TAD Risk Factors: Pos: Hypertension Past Medical History Reviewed: Historical Data, Nursing Documentation, Vital Signs Vital Signs: Last Vital Signs Temp 97.7 F 07/28/17 10:08 Pulse 74 07/28/17 10:25 Resp 19 07/28/17 10:25 BP 108/63 07/28/17 10:25 Pulse Ox 100 07/28/17 10:08 - Medical History PMH: Anemia, Atrial Fibrillation, Deep Vein Thrombosis, HTN, Hypercholesterolemia, Hypothyroidism, Malignancy (Lung cancer; multipe myeloma) , Pulmonary Embolism, Rheumatoid Arthritis Denies: Chronic Kidney Disease - Surgical History Surgical History: Hernia Repair Other surgeries: Colonoscopy (several years ago), IVC Filter, Breast surgery, Lung Surgery. - Family History Family History: States: Unknown Family Hx - Social History Current smoker - smoking cessation education provided: No Ex-Smoker (has not smoked in the last 12 months): No Alcohol: None Drugs: Denies - Home Medications Home Medications: Ambulatory Orders Medication Instructions Recorded Levothyroxine [Synthroid] 50 mcg PO DAILY@0630 #30 tab 07/09/17 Methotrexate [Methotrexate] 8 tab PO QWK 07/28/17 - Allergies Allergies/Adverse Reactions: Allergies Allergy/AdvReac Type Severity Reaction Status Date / Time No Known Allergies Allergy Verified 07/28/17 10:11 Review of Systems ROS Statement: Except As Marked, All Systems Reviewed And Found Negative Constitutional: Positive for: Weakness, Other (Fatigue). Negative for: Fever Cardiovascular: Negative for: Chest Pain Respiratory: Negative for: Cough, Shortness of Breath Gastrointestinal: Negative for: Vomiting, Abdominal Pain Neurological: Positive for: Weakness, Dizziness Physical Exam - Reviewed Nursing Documentation Reviewed: Yes Vital Signs Reviewed: Yes - Physical Exam Appears: Positive for: Non-toxic, No Acute Distress Skin: Positive for: Warm, Dry, Pallor (mildy pallor). Negative for: Normal Color Eye Exam: Positive for: Normal appearance, EOMI, PERRL. Negative for: Nystagmus ENT: Positive for: Normal ENT Inspection. Negative for: Nasal Congestion, Tonsillar Exudate, Tonsillar Swelling Neck: Positive for: Normal, Painless ROM, Supple Cardiovascular/Chest: Positive for: Regular Rate, Rhythm, Chest Non Tender. Negative for: Bradycardia, Tachycardia Respiratory: Positive for: Normal Breath Sounds. Negative for: Rales, Rhonchi, Wheezing, Respiratory Distress Gastrointestinal/Abdominal: Positive for: Normal Exam, Bowel Sounds, Soft. Negative for: Tenderness, Mass, Guarding, Rebound Back: Positive for: Normal Inspection. Negative for: L CVA Tenderness, R CVA Tenderness Extremity: Positive for: Normal ROM. Negative for: Tenderness, Pedal Edema, Calf Tenderness, Deformity, Swelling Lymphatic: Positive for: Normal Exam. Negative for: Adenopathy Neurologic/Psych: Positive for: Alert, Oriented - Laboratory Results Result Diagrams: 07/28/17 11:15 07/28/17 11:50 - ECG O2 Sat by Pulse Oximetry: 100 (RA) Pulse Ox Interpretation: Normal Medical Decision Making Medical Decision Makin initial Impression 82 y/o female presenting with dizziness and presyncope Initial Plan: * EKG * B-type Natriuretic * CMP * Troponin * CBC * Partial Thromboplastin * Prothrombin Time * CXR * NS 1000ml IV 1000mls/hr * Accucheck * Guiac Stool * Urinalysis * Reevaluation 1050 - EKG performed * Sinus at 75 * Normal intervals * No ST changes 1130 - Prior chart reviewed revealing an observation stay 3 weeks ago for similar presentation, however now she states stools are dark therefore will check Guiac and initiate IV fluids. 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. All agree with hospitalized observation r/o GI bleed (on methotrexate). First guiac negative but she states she's had intermittent black stools over last few days. D/w Dr Albarado admissions director medicine, iron studies ordered and duplex LE r/o DVT as been off coumadin for several weeks. Scribe Attestation Documented by Ary Fierro acting as a scribe for Jesse Jacques DO. Provider Attestation All medical record entries made by the Scribe were at my direction and personally dictated by me. I have reviewed the chart and agree that the record accurately reflects my personal performance of the history, physical exam, medical decision making, and the department course for this patient. I have also personally directed, reviewed, and agree with the discharge instructions and disposition. Disposition - Clinical Impression Clinical Impression: Pre-syncope, UTI (urinary tract infection), Anemia - Patient ED Disposition Is Patient to be Admitted: Yes Counseled Patient/Family Regarding: Studies Performed, Diagnosis, Need For Followup - Disposition Disposition Time: 14:01 Condition: FAIR - Pt Status Changed To: Hospital Disposition Of: Observation
[2017-07-28 11:58] LABS: ALKALINE PHOSPHATASE 82 U/L (38-126); ALT/SGPT 133 U/L (9-52); AST/SGOT 113 U/L (14-36); BILIRUBIN,TOTAL 0.5 mg/dl (0.2-1.3); BLOOD UREA NITROGEN 19 mg/dl (7-17); CALCIUM 10.3 mg/dL (8.4-10.2); CARBON DIOXIDE 24 mmol/L (22-30); CHLORIDE 109 mmol/L (98-107); GFR AFRICAN-AMERICAN 52; GLUCOSE,RANDOM 114 mg/dL (65-105); SODIUM 144 mmol/l (132-148); TOTAL PROTEIN 8.5 G/DL (6.3-8.2)
[2017-07-28 12:09] LABS: PARTIAL THROMBOPLASTIN TIME 25.2 Seconds (25.6-37.1)
[2017-07-28 12:38] LABS: NEUTROPHIL 90 % (42-75); TOTAL CELLS COUNTED 100
[2017-07-28 12:39] LABS: LARGE PLATELETS PRESENT
[2017-07-28 12:41] LABS: PLATELET COUNT 119 K/uL (130-400)
[2017-07-28 13:24] LABS: GRANULAR CAST 2 /lpf (0-1); RBC URINE 15 /hpf (0-3); URINE BACTERIA OCC (<OCC); URINE BILIRUBIN NEGATIVE (NEGATIVE); URINE BLOOD MODERATE (NEGATIVE); URINE CALCIUM OXALATE CRYSTALS MOD /hpf (<OCC); URINE COLOR AMBER (YELLOW); URINE GLUCOSE (UA) NEG (Normal); URINE KETONE NEGATIVE (NEGATIVE); URINE LEUKOCYTE ESTERASE LARGE Leu/uL (Negative); URINE PROTEIN 100 mg/dL (NEGATIVE); URINE UROBILINOGEN 0.2-1.0 mg/dL (0.2-1.0); WBC URINE 116 /hpf (0-5)
[2017-07-28] MEDS ORDERED: cefTRIAXone IV 1 gm in Dextros 50 ML IVPB STA (13:53)
[2017-07-28 14:52] LABS: IRON 80 ug/dL (37-170)
[2017-07-28] MEDS ORDERED: cefTRIAXone IV 1 gm in Dextros 50 ML IVPB ONE (15:09)
--- NOTE | 2017-07-28 17:02 | US ---
PROCEDURE: Bilateral lower extremity venous duplex Doppler. HISTORY: r/o DVT COMPARISON: None available. TECHNIQUE: Bilateral common femoral, superficial femoral, popliteal and posterior tibial veins were evaluated. Flow was assessed with color Doppler, compressibility, assessment of phasic flow and augmentation response. FINDINGS: COMMON FEMORAL VEIN: Right CFV: Unremarkable. Left CFV: Unremarkable. SUPERFICIAL FEMORAL VEIN: Right SFV: Unremarkable. Left SFV: Unremarkable. POPLITEAL VEIN: Right Popliteal: There is a nonocclusive thrombus. Left Popliteal: There is a nonocclusive thrombus. POSTERIOR TIBIAL VEIN: Right PTV: There is a nonocclusive thrombus. Left PTV: There is a nonocclusive thrombus. OTHER FINDINGS: None. IMPRESSION: Non occlusive thrombosis in bilateral popliteal and posterior tibial veins.
[2017-07-29] MEDS: Levothyroxine 50 MCG TAB PO SCH (06:15)
[2017-07-29 07:30] LABS: BASO % 0.5 % (0.0-2.0); EOS # 0.1 K/uL (0.0-0.7); EOS % 2.6 % (0.0-4.0); HEMATOCRIT 26.2 % (34.0-47.0); LYMPH # 0.7 K/uL (1.0-4.3); LYMPH % 13.7 % (20.0-40.0); MEAN CELL VOLUME 100.6 fl (81.0-99.0); MEAN CORPUSCULAR HEMOGLOBIN 32.6 pg (27.0-31.0); MEAN CORPUSCULAR HGB CONC 32.4 g/dL (33.0-37.0); MEAN PLATELET VOLUME 9.7 fl (7.2-11.7); MONO # 0.2 K/uL (0.0-0.8); MONO % 3.4 % (0.0-10.0); NEUT # 3.9 K/uL (1.8-7.0); NEUT % 79.8 % (50.0-75.0); NRBC % 0.1 % (0.0-0.0); RED CELL DISTRIBUTION WIDTH 14.8 % (11.5-14.5); WHITE BLOOD COUNT 4.9 K/uL (4.8-10.8)
[2017-07-29 07:33] LABS: ALKALINE PHOSPHATASE 67 U/L (38-126); ALT/SGPT 116 U/L (9-52); AST/SGOT 99 U/L (14-36); BILIRUBIN,TOTAL 0.4 mg/dl (0.2-1.3); BLOOD UREA NITROGEN 21 mg/dl (7-17); CARBON DIOXIDE 25 mmol/L (22-30); CHLORIDE 109 mmol/L (98-107); GFR AFRICAN-AMERICAN 58; GLUCOSE,RANDOM 91 mg/dL (65-105); SODIUM 143 mmol/l (132-148)
[2017-07-29 08:02] LABS: THYROID STIMULATING HORMONE 0.99 mIU/ML (0.46-4.68)
[2017-07-29] MEDS: cefTRIAXone IV 1 gm in Dextros 50 ML IVPB SCH (09:17)
--- NOTE | 2017-07-29 13:27 | CP.PCM.HP ---
History of Present Illness - History of Present Illness History of Present Illness: An 82 yr old femlae with hx of hypothyroidism, stage 2 breast ca right s\p lumpectomy, willieca rig sdie s\o [id number] , RA on meds, DVT B\L S\P IVC filter recent hx of fall s\p left clavicle fracture , coumadin being held, suppose f\u PMD came to ER for feeling dizzy and weak unable to take stairs which is new as she being active ,friends brought her to ER now feeling better wants to go home. notes she wull f\u PMD tomorrow, she is confident enough she walks with cane , lans showed anemia. raised LFTS . NOTES SHE DOES NOT HAVE RECENT Black stools, this was few months ago has had EGD \colonocopy no reason identifyed. Present on Admission - Present on Admission Any Indicators Present on Admission: No Past Patient History - Infectious Disease Hx of Infectious Diseases: None - Tetanus Immunizations Tetanus Immunization: Unknown - Past Medical History & Family History Past Medical History?: Yes - Past Social History Smoking Status: Never Smoked - CARDIAC Hx Cardiac Disorders: Yes Hx Atrial Fibrillation: Yes Hx Hypercholesterolemia: Yes Hx Hypertension: Yes - PULMONARY Hx Respiratory Disorders: Yes Hx Pulmonary Embolism: Yes - NEUROLOGICAL Hx Neurological Disorder: Yes Hx Syncope: Yes - HEENT Hx HEENT Problems: No - RENAL Hx Chronic Kidney Disease: No - ENDOCRINE/METABOLIC Hx Endocrine Disorders: Yes Hx Hypothyroidism: Yes - HEMATOLOGICAL/ONCOLOGICAL Hx Blood Disorders: Yes Hx Anemia: Yes Hx Cancer: Yes (Lung CA, Breast CA) - INTEGUMENTARY Hx Dermatological Problems: No - MUSCULOSKELETAL/RHEUMATOLOGICAL Hx Musculoskeletal Disorders: Yes Hx Falls: Yes Hx Rheumatoid Arthritis: Yes - GASTROINTESTINAL Hx Gastrointestinal Disorders: No - GENITOURINARY/GYNECOLOGICAL Hx Genitourinary Disorders: No - PSYCHIATRIC Hx Psychophysiologic Disorder: No Hx Substance Use: No - SURGICAL HISTORY Hx Surgeries: Yes Hx Hysterectomy: Yes Hx Parathyroidectomy: Yes Hx Thyroidectomy: Yes Other/Comment: Hx of Lumpectomy for Breast Ca, Pt did not have RT or Chemoterapy Rx, Pt has Hx of Vaginal Pessary. - ANESTHESIA Hx Anesthesia: Yes Hx Anesthesia Reactions: No Hx Malignant Hyperthermia: No Meds Allergies/Adverse Reactions: Allergies Allergy/AdvReac Type Severity Reaction Status Date / Time No Known Allergies Allergy Verified 07/28/17 10:11 Results - Vital Signs Recent Vital Signs: Last Vital Signs Temp 98.5 F 07/29/17 12:00 Pulse 69 07/29/17 12:00 Resp 18 07/29/17 12:00 BP 119/71 07/29/17 12:00 Pulse Ox 97 07/29/17 12:00 - Labs Result Diagrams: 07/29/17 07:00 07/29/17 06:30 Labs: Laboratory Results - last 24 hr 07/28/17 07/28/17 07/28/17 10:52 12:30 13:29 WBC RBC Hgb Hct MCV MCH MCHC RDW Plt Count MPV Neut % (Auto) Lymph % (Auto) [place] % (Auto) Eos % (Auto) Baso % (Auto) Neut # Lymph # [place] # Eos # Baso # Sodium Potassium Chloride Carbon Dioxide Anion Gap BUN Creatinine Est GFR ( Amer) Est GFR (Non-Af Amer) POC Glucose (mg/dL) 134 H Random Glucose Calcium Iron TIBC % Saturation Ferritin Total Bilirubin AST ALT Alkaline Phosphatase Troponin I Total Protein Albumin Globulin Albumin/Globulin Ratio TSH 3rd Generation Urine Color Jolie Urine Clarity Cloudy Urine pH 5.0 Ur Specific [place] 1.024 Urine Protein 100 Urine Glucose (UA) Neg Urine Ketones Negative Urine Blood Moderate Urine Nitrate Negative Urine Bilirubin Negative Urine Urobilinogen 0.2-1.0 Ur Leukocyte Esterase Large Urine RBC (Auto) 15 H Urine Microscopic WBC 116 H Ur Squamous Epith Cells 16 H Calcium Oxalate Crystal Mod H Urine Bacteria Occ H Hyaline Casts 0-2 Granular Casts (Auto) 2 Stool Occult Blood Negative 07/28/17 07/28/17 07/28/17 14:00 14:00 20:21 WBC RBC Hgb Hct MCV MCH MCHC RDW Plt Count MPV Neut % (Auto) Lymph % (Auto) [place] % (Auto) Eos % (Auto) Baso % (Auto) Neut # Lymph # [place] # Eos # Baso # Sodium Potassium Chloride Carbon Dioxide Anion Gap BUN Creatinine Est GFR ( Amer) Est GFR (Non-Af Amer) POC Glucose (mg/dL) Random Glucose Calcium Iron 80 TIBC 306 % Saturation 26 Ferritin 74.2 Total Bilirubin AST ALT Alkaline Phosphatase Troponin I < 0.0120 Total Protein Albumin Globulin Albumin/Globulin Ratio TSH 3rd Generation Urine Color Urine Clarity Urine pH Ur Specific [place] Urine Protein Urine Glucose (UA) Urine Ketones Urine Blood Urine Nitrate Urine Bilirubin Urine Urobilinogen Ur Leukocyte Esterase Urine RBC (Auto) Urine Microscopic WBC Ur Squamous Epith Cells Calcium Oxalate Crystal Urine Bacteria Hyaline Casts Granular Casts (Auto) Stool Occult Blood 07/29/17 07/29/17 06:30 07:00 WBC 4.9 RBC 2.60 L Hgb 8.5 L D Hct 26.2 L MCV 100.6 H MCH 32.6 H MCHC 32.4 L RDW 14.8 H Plt Count 91 L D MPV 9.7 Neut % (Auto) 79.8 H Lymph % (Auto) 13.7 L [place] % (Auto) 3.4 Eos % (Auto) 2.6 Baso % (Auto) 0.5 Neut # 3.9 Lymph # 0.7 L [place] # 0.2 Eos # 0.1 Baso # 0.0 Sodium 143 Potassium 4.0 Chloride 109 H Carbon Dioxide 25 Anion Gap 13 BUN 21 H Creatinine 1.1 Est GFR ( Amer) 58 Est GFR (Non-Af Amer) 48 POC Glucose (mg/dL) Random Glucose 91 Calcium 9.0 Iron TIBC % Saturation Ferritin Total Bilirubin 0.4 AST 99 H ALT 116 H Alkaline Phosphatase 67 Troponin I < 0.0120 Total Protein 7.0 Albumin 3.5 Globulin 3.5 Albumin/Globulin Ratio 1.0 TSH 3rd Generation 0.99 Urine Color Urine Clarity Urine pH Ur Specific [place] Urine Protein Urine Glucose (UA) Urine Ketones Urine Blood Urine Nitrate Urine Bilirubin Urine Urobilinogen Ur Leukocyte Esterase Urine RBC (Auto) Urine Microscopic WBC Ur Squamous Epith Cells Calcium Oxalate Crystal Urine Bacteria Hyaline Casts Granular Casts (Auto) Stool Occult Blood - Imaging and Cardiology Chest x-ray Status: Report reviewed by me Venous US Status: Report reviewed by me Assessment & Plan (1) Pre-syncope Status: Acute (2) UTI (urinary tract infection) Status: Acute (3) Dizziness Status: Acute (4) Hepatitis Status: Acute (5) Anemia Status: Chronic Priority: Medium (6) Lung cancer Status: Acute Priority: High (7) Atrial fibrillation Status: Chronic Priority: Low (8) Hx of deep venous thrombosis Status: Chronic Priority: Medium (9) Hypothyroidism Status: Chronic Priority: Low (10) Rheumatoid arthritis Status: Chronic Priority: Medium
--- NOTE | 2017-07-29 16:35 | CARD ---
APPROVED REPORT EKG Measurement Heart [id number] [place] [id number] <Conclusion> Normal sinus rhythm Normal ECG
--- NOTE | 2017-07-29 16:37 | CARD ---
APPROVED REPORT EKG Measurement Heart [id number] [place] [id number] <Conclusion> Normal sinus rhythm Normal ECG
--- NOTE | 2017-07-29 16:42 | CARD ---
APPROVED REPORT EKG Measurement Heart [id number] [place] 156P7 [id number] <Conclusion> Normal sinus rhythm Normal ECG
[2017-07-30 05:43] LABS: BASO % 0.7 % (0.0-2.0); BILIRUBIN,TOTAL 0.4 mg/dl (0.2-1.3); CALCIUM 9.6 mg/dL (8.4-10.2); EOS # 0.2 K/uL (0.0-0.7); EOS % 3.1 % (0.0-4.0); HEMATOCRIT 28.6 % (34.0-47.0); LYMPH # 0.8 K/uL (1.0-4.3); LYMPH % 12.7 % (20.0-40.0); MEAN CELL VOLUME 101.4 fl (81.0-99.0); MEAN CORPUSCULAR HEMOGLOBIN 33.2 pg (27.0-31.0); MEAN CORPUSCULAR HGB CONC 32.7 g/dL (33.0-37.0); MONO # 0.3 K/uL (0.0-0.8); MONO % 4.4 % (0.0-10.0); NEUT # 4.8 K/uL (1.8-7.0); NEUT % 79.1 % (50.0-75.0); NRBC % 0.1 % (0.0-0.0); POTASSIUM 4.6 MMOL/L (3.6-5.0); RED CELL DISTRIBUTION WIDTH 15.1 % (11.5-14.5); TOTAL PROTEIN 7.9 G/DL (6.3-8.2)
[2017-07-30] MEDS: Levothyroxine 50 MCG TAB PO SCH (06:33)
[2017-07-30] MEDS: cefTRIAXone IV 1 gm in Dextros 50 ML IVPB SCH (08:55)
[2017-07-30 12:39] VITALS: BP 115/67; PULSE 78; RESP 20; TEMP 97.6; O2SAT 100
--- NOTE | 2017-07-30 23:13 | CP.PCM.DIS ---
Provider - Provider Date of Admission: 07/29/17 20:27 Attending physician: Candace Albarado MD Diagnosis - Discharge Diagnosis (1) Pre-syncope Status: Acute (2) UTI (urinary tract infection) Status: Acute (3) Dizziness Status: Acute (4) Hepatitis Status: Acute (5) Anemia Status: Chronic Priority: Medium (6) Lung cancer Status: Acute Priority: High (7) Atrial fibrillation Status: Chronic Priority: Low (8) Hx of deep venous thrombosis Status: Chronic Priority: Medium (9) Hypothyroidism Status: Chronic Priority: Low (10) Rheumatoid arthritis Status: Chronic Priority: Medium Hospital Course - Lab Results Lab Results: Micro Results 07/28/17 14:00 Blood Blood Culture - Preliminary NO GROWTH AFTER 48 HOURS 07/28/17 14:00 Urine Urine Culture - Final 10-50,000 CFU/ML. MULTIPLE SPECIES. PROBABLE CONTAMINATION. Most Recent Lab Values WBC 6.0 K/uL (4.8-10.8) 07/30/17 04:50 RBC 2.82 Mil/uL (3.80-5.20) L 07/30/17 04:50 Hgb 9.4 g/dL (12.0-16.0) L 07/30/17 04:50 Hct 28.6 % (34.0-47.0) L 07/30/17 04:50 MCV 101.4 fl (81.0-99.0) H 07/30/17 04:50 MCH 33.2 pg (27.0-31.0) H 07/30/17 04:50 MCHC 32.7 g/dL (33.0-37.0) L 07/30/17 04:50 RDW 15.1 % (11.5-14.5) H 07/30/17 04:50 Plt Count 102 K/uL (130-400) L 07/30/17 04:50 MPV 10.0 fl (7.2-11.7) 07/30/17 04:50 Neut % (Auto) 79.1 % (50.0-75.0) H 07/30/17 04:50 Lymph % (Auto) 12.7 % (20.0-40.0) L 07/30/17 04:50 [place] % (Auto) 4.4 % (0.0-10.0) 07/30/17 04:50 Eos % (Auto) 3.1 % (0.0-4.0) 07/30/17 04:50 Baso % (Auto) 0.7 % (0.0-2.0) 07/30/17 04:50 Neut # 4.8 K/uL (1.8-7.0) 07/30/17 04:50 Lymph # 0.8 K/uL (1.0-4.3) L 07/30/17 04:50 [place] # 0.3 K/uL (0.0-0.8) 07/30/17 04:50 Eos # 0.2 K/uL (0.0-0.7) 07/30/17 04:50 Baso # 0.0 K/uL (0.0-0.2) 07/30/17 04:50 Neutrophils % (Manual) 90 % (42-75) H 07/28/17 11:15 Lymphocytes % (Manual) 9 % (20-50) L 07/28/17 11:15 Monocytes % (Manual) 1 % (0-10) 07/28/17 11:15 Platelet Estimate Decreased (NORMAL) L 07/28/17 11:15 Large Platelets Present 07/28/17 11:15 Hypochromasia (manual) Slight 07/28/17 11:15 Anisocytosis (manual) Slight 07/28/17 11:15 Ovalocytes Slight 07/28/17 11:15 PT 12.6 Seconds (9.8-13.1) 07/28/17 11:15 INR 1.1 (0.9-1.2) 07/28/17 11:15 APTT 25.2 Seconds (25.6-37.1) L 07/28/17 11:15 Sodium 144 mmol/l (132-148) 07/30/17 04:50 Potassium 4.6 MMOL/L (3.6-5.0) 07/30/17 04:50 Chloride 108 mmol/L (98-107) H 07/30/17 04:50 Carbon Dioxide 24 mmol/L (22-30) 07/30/17 04:50 Anion Gap 17 (10-20) 07/30/17 04:50 BUN 25 mg/dl (7-17) H 07/30/17 04:50 Creatinine 1.2 mg/dL (0.7-1.2) 07/30/17 04:50 Est GFR ( Amer) 52 07/30/17 04:50 Est GFR (Non-Af Amer) 43 07/30/17 04:50 POC Glucose (mg/dL) 134 mg/dL (65-110) H 07/28/17 10:52 Random Glucose 99 mg/dL (65-105) 07/30/17 04:50 Calcium 9.6 mg/dL (8.4-10.2) 07/30/17 04:50 Iron 80 ug/dL (37-170) 07/28/17 14:00 TIBC 306 ug/dL (250-450) 07/28/17 14:00 % Saturation 26 % (20-55) 07/28/17 14:00 Ferritin 122.0 ng/Ml (11.1-264.0) 07/30/17 04:50 Total Bilirubin 0.4 mg/dl (0.2-1.3) 07/30/17 04:50 AST 124 U/L (14-36) H D 07/30/17 04:50 ALT 151 U/L (9-52) H D 07/30/17 04:50 Alkaline Phosphatase 70 U/L (38-126) 07/30/17 04:50 Troponin I < 0.0120 ng/mL (0.00-0.120) 07/29/17 06:30 NT-Pro-B Natriuret Pep 229 pg/ml (0-900) 07/28/17 11:50 Total Protein 7.9 G/DL (6.3-8.2) 07/30/17 04:50 Albumin 3.9 g/dL (3.5-5.0) 07/30/17 04:50 Globulin 3.9 gm/dL (2.2-3.9) 07/30/17 04:50 Albumin/Globulin Ratio 1.0 (1.0-2.1) 07/30/17 04:50 TSH 3rd Generation 0.99 mIU/ML (0.46-4.68) 07/29/17 06:30 Urine Color Jolie (YELLOW) 07/28/17 12:30 Urine Clarity Cloudy (Clear) 07/28/17 12:30 Urine pH 5.0 (5.0-8.0) 07/28/17 12:30 Ur Specific [place] 1.024 (1.003-1.030) 07/28/17 12:30 Urine Protein 100 mg/dL (NEGATIVE) 07/28/17 12:30 Urine Glucose (UA) Neg mg/dL (Normal) 07/28/17 12:30 Urine Ketones Negative mg/dL (NEGATIVE) 07/28/17 12:30 Urine Blood Moderate (NEGATIVE) 07/28/17 12:30 Urine Nitrate Negative (NEGATIVE) 07/28/17 12:30 Urine Bilirubin Negative (NEGATIVE) 07/28/17 12:30 Urine Urobilinogen 0.2-1.0 mg/dL (0.2-1.0) 07/28/17 12:30 Ur Leukocyte Esterase Large [place]/uL (Negative) 07/28/17 12:30 Urine RBC (Auto) 15 /hpf (0-3) H 07/28/17 12:30 Urine Microscopic WBC 116 /hpf (0-5) H 07/28/17 12:30 Ur Squamous Epith Cells 16 /hpf (0-5) H 07/28/17 12:30 Calcium Oxalate Crystal Mod /hpf (<OCC) H 07/28/17 12:30 Urine Bacteria Occ (<OCC) H 07/28/17 12:30 Hyaline Casts 0-2 /hpf (0-2) 07/28/17 12:30 Granular Casts (Auto) 2 /lpf (0-1) 07/28/17 12:30 Stool Occult Blood Negative (NEGATIVE) 07/28/17 13:29 Discharge Plan - Follow Up Plan Condition: FAIR Disposition: HOME/ ROUTINE Instructions: Dehydration (DC) Additional Instructions: please follow-up with your Primary care provider in one week.
--- NOTE | 2017-07-31 10:13 | PQF GENQUE ---
Dr. Albarado pt was admitted with syncope. What is the principal diagnosis for this case? This form is a permanent part of the medical record Clarification of your documentation is requested to better reflect the severity of illness and intensity of treatment of your patient. Indicators present [] Specify: [] [] Specify: [] [] Specify: [] [] Specify: [] Location in the medical record that reflects the above clinical findings: [] Treatment Provided: [] PHYSICIAN'S RESPONSE Based on your medical judgment of the clinical indicators outlined above please clarify the following: [] Practitioner response [] If unable to determine, please check the box, sign and date. Present On Admission (POA) Indicator: [] Present at the time of admission [] Not present at the time of admission [] Clinically Undetermined In responding to this query, please exercise your independent professional judgment. The fact that a question is asked does not imply that any particular answer is desired or expected. Thank you for your clarification on this documentation. If you have any questions please call:[ ] * Thank you, [ ]Kenisha Dove store standards associate JACBOY
== END 2017-07-30 16:00 | disposition home or self-care (01) | DRG 641 ==
LOC: H.ER 10:06 → H.ERHOLD 14:14 → H.TEL 07-29 01:20 → OBSVTOIN 07-29 20:27
PROVIDERS: ADMIT Internal Medicine; ATTEND Internal Medicine
DX: E86.0 Dehydration (principal); C90.00 Multiple myeloma not having achieved remission; I48.2 Chronic atrial fibrillation; D64.9 Anemia, unspecified; R55 Syncope and collapse; E03.9 Hypothyroidism, unspecified; E78.00 Pure hypercholesterolemia, unspecified; N39.0 Urinary tract infection, site not specified; I10 Essential (primary) hypertension; K75.9 Inflammatory liver disease, unspecified; M06.9 Rheumatoid arthritis, unspecified; Z85.118 Personal history of other malignant neoplasm of bronchus and lung; Z85.3 Personal history of malignant neoplasm of breast; Z86.711 Personal history of pulmonary embolism; Z86.718 Personal history of other venous thrombosis and embolism

== ENCOUNTER 2017-08-12 09:57 | Inpatient (IN) | payer MEDICARE, OTHER ==
[2017-08-12 09:57] VITALS: BMI 24.6
--- NOTE | 2017-08-12 10:36 | ED PDOC ---
Lower Extremity Pain/Injury Time Seen by Provider: 08/12/17 10:11 Chief Complaint (Nursing): Lower Extremity Problem/Injury Chief Complaint (Provider): Leg swelling History Per: Patient History/Exam Limitations: no limitations Onset/Duration Of Symptoms: Days (1 week) Current Symptoms Are (Timing): Still Present Additional Complaint(s): Pt. with left leg swelling on going for 1 week. Has trouble walking around with it. No numbness. No weakness, headaches, chest pain, dyspnea, leg pain, dizziness. Stopped her coumadin for 1 week and started again 1 week ago. When she started it again, the swelling came back. No back pain. No swelling elsewhere. Past Medical History Reviewed: Historical Data, Nursing Documentation, Vital Signs Vital Signs: Last Vital Signs Temp 97.4 F L 08/12/17 10:01 Pulse 94 H 08/12/17 10:01 Resp 16 08/12/17 10:01 BP 118/69 08/12/17 10:01 Pulse Ox 98 08/12/17 10:01 - Medical History PMH: Anemia, Atrial Fibrillation, Deep Vein Thrombosis, HTN, Hypercholesterolemia, Hypothyroidism, Malignancy (Lung cancer; multipe myeloma) , Pulmonary Embolism, Rheumatoid Arthritis Denies: Chronic Kidney Disease - Family History Family History: States: Unknown Family Hx - Living Arrangements Living Arrangements: With Family - Social History Current smoker - smoking cessation education provided: No Alcohol: None Drugs: Denies - Home Medications Home Medications: Ambulatory Orders Medication Instructions Recorded Levothyroxine [Synthroid] 50 mcg PO DAILY@0630 #30 tab 07/09/17 - Allergies Allergies/Adverse Reactions: Allergies Allergy/AdvReac Type Severity Reaction Status Date / Time No Known Allergies Allergy Verified 07/28/17 10:11 Review of Systems ROS Statement: Except As Marked, All Systems Reviewed And Found Negative Cardiovascular: Positive for: Edema Physical Exam - Reviewed Nursing Documentation Reviewed: Yes Vital Signs Reviewed: Yes - Physical Exam Appears: Positive for: Uncomfortable Head Exam: Positive for: ATRAUMATIC, NORMAL INSPECTION, NORMOCEPHALIC Skin: Positive for: Normal Color, Warm, DRY Eye Exam: Positive for: EOMI, Normal appearance, PERRL ENT: Positive for: Normal ENT Inspection Neck: Positive for: Normal, Painless ROM Cardiovascular/Chest: Positive for: Regular Rate, Rhythm Respiratory: Positive for: CNT, Normal Breath Sounds Pulses-Dorsalis Pedis (L): 1+ Back: Positive for: Normal Inspection. Negative for: L CVA Tenderness, R CVA Tenderness Extremity: Positive for: Pedal Edema (L entire leg with 2+ pitting edema; nontender; L medial thigh up to knee with erythema, nontender, no induration; blanching.). Negative for: Normal ROM (Limited ROM of leg L due to swelling) Neurologic/Psych: Positive for: Alert, Oriented - Laboratory Results Result Diagrams: 08/12/17 11:00 08/12/17 12:42 Interpretation Of Abn Labs: 60 and 2.0 bun and cr - ECG ECG: Positive for: Interpreted By Me, Viewed By Me ECG Rhythm: Positive for: Normal QRS, Normal ST Segment, Sinus Rhythm O2 Sat by Pulse Oximetry: 98 Pulse Ox Interpretation: Normal - CT Scan/US US Other Rad Studies (CT/US): Read By Radiologist Other Rad Interpretation: b/l dvt - Progress ED Course And Treament: 1443: Stable. AAOx3. Pain controlled. Has dvt throughout leg. Pt. notes on a diuretic that started Tues. 1532: Spoke with Dr. Romero. Agrees to admit. Will give further orders when pt. reaches floor. Spoke with Dr. Sabino Campos. Made aware of presentation, history , and findings. States to start heparin 5000 unit bolus and drip at protocol. Spoke with Dr. Carson, pt. covering medical practice manager, who was made aware of findings, presentation, pt. hx. Agrees with current plan and management. Pt. with no bleeding currently. States she has had heparin in the past with no issues. - Critical Care Total Time (In Min): 30 Documented Critical Care: Time excludes all time spent performint seperately billable procedures Disposition - Clinical Impression Clinical Impression: DVT (deep venous thrombosis), Dehydration, Renal insufficiency - Patient ED Disposition Is Patient to be Admitted: Yes - Disposition Disposition Time: 15:35 Condition: FAIR - Pt Status Changed To: Hospital Disposition Of: Inpatient - Admit Certification Admit to Inpatient:: After my assessment, the patient will require hospitalization for at least two midnights. This is because of the severity of symptoms shown, intensity of services needed, and/or the medical risk in this patient being treated as an outpatient. - POA Present On Arrival: Deep Vein Thrombosis / PE
[2017-08-12 11:08] LABS: EOS % 0.3 % (0.0-4.0); HEMATOCRIT 28.9 % (34.0-47.0); LYMPH # 0.3 K/uL (1.0-4.3); LYMPH % 3.1 % (20.0-40.0); MEAN CELL VOLUME 96.2 fl (81.0-99.0); MEAN CORPUSCULAR HEMOGLOBIN 32.4 pg (27.0-31.0); MEAN CORPUSCULAR HGB CONC 33.7 g/dL (33.0-37.0); MEAN PLATELET VOLUME 9.6 fl (7.2-11.7); MONO # 0.2 K/uL (0.0-0.8); MONO % 1.5 % (0.0-10.0); NEUT # 9.5 K/uL (1.8-7.0); NEUT % 95.1 % (50.0-75.0); NRBC % 0.1 % (0.0-0.0); PLATELET COUNT 199 K/uL (130-400); RED CELL DISTRIBUTION WIDTH 15.3 % (11.5-14.5)
[2017-08-12 11:13] LABS: VENOUS BLOOD GAS BASE EXCESS 6.1 mmol/L (0.0-2.0); VENOUS BLOOD GAS PCO2 53 mmHg (40-60); VENOUS BLOOD PH 7.39 (7.32-7.43)
[2017-08-12 11:39] LABS: ALB/GLOB RATIO 0.8 (1.0-2.1); ALKALINE PHOSPHATASE 150 U/L (38-126); ALT/SGPT 71 U/L (9-52); AST/SGOT 122 U/L (14-36); BILIRUBIN,TOTAL 1.5 mg/dl (0.2-1.3); BLOOD UREA NITROGEN 60 mg/dl (7-17); CALCIUM 9.4 mg/dL (8.4-10.2); CARBON DIOXIDE 27 mmol/L (22-30); CHLORIDE 95 mmol/L (98-107); GFR AFRICAN-AMERICAN 29; GLUCOSE,RANDOM 114 mg/dL (65-105); SODIUM 137 mmol/l (132-148); TOTAL PROTEIN 9.2 G/DL (6.3-8.2)
[2017-08-12 11:48] LABS: PARTIAL THROMBOPLASTIN TIME 28.6 Seconds (25.6-37.1)
[2017-08-12 11:55] LABS: POTASSIUM 6.1 MMOL/L (3.6-5.0)
[2017-08-12 12:50] LABS: NEUTROPHIL 97 % (42-75); TOTAL CELLS COUNTED 100
[2017-08-12 12:51] LABS: LARGE PLATELETS PRESENT
--- NOTE | 2017-08-12 14:45 | US ---
HISTORY: Rule out DVT COMPARISON: Comparison made with prior study 07/28/2017 TECHNIQUE: Bilateral common femoral, superficial femoral, popliteal and posterior tibial veins were evaluated. Flow was assessed with color Doppler, compressibility, assessment of phasic flow and augmentation response. FINDINGS: Noncompressible thrombus/DVT seen throughout the left common femoral, superficial femoral popliteal and posterior tibial veins. findings within the common femoral, superficial femoral veins are new since prior exam. The DVT within the left common femoral and superficial femoral veins are new since prior study new. Additionally, there is noncompressible thrombus in the left-sided greater saphenous vein. Noncompressible thrombus/DVT seen within the right popliteal and posterior tibial veins also new since prior exam. . Prior study did demonstrate what probably represents some small amount of flow due to re- cannulization on the prior exam in these vessels. The right common femoral and superficial femoral veins are patent. IMPRESSION: Noncompressible thrombus/DVT seen throughout the left common femoral, superficial femoral popliteal and posterior tibial veins. findings within the common femoral, superficial femoral veins are new since prior exam. The DVT within the left common femoral and superficial femoral veins are new since prior study new. Noncompressible thrombus/DVT seen within the right popliteal and posterior tibial veins also new since prior exam. . Prior study did demonstrate what probably represents some small amount of flow due to re- cannulization on the prior exam in these vessels. The right common femoral and superficial femoral veins are patent. Note that these findings were discussed with Dr. Wilde at approximately 2:30 p.m. with written down and read back verification.
[2017-08-12] MEDS ORDERED: Sodium Chloride 0.9% 500 ML IV STA (14:51)
[2017-08-12] MEDS: Heparin 25,000units in D5W 25,000 UNITS/250 ML BAG IV SCH (16:55)
[2017-08-12] MEDS ORDERED: Oxycodone/Acetaminophen 5/325 mg Tab PO PRN (20:33)
--- NOTE | 2017-08-12 21:07 | CARD ---
APPROVED REPORT EKG Measurement Heart [id number] [id number] <Conclusion> Normal sinus rhythm with sinus arrhythmia Normal ECG
[2017-08-13] MEDS: Heparin 25,000units in D5W 25,000 UNITS/250 ML BAG IV SCH (02:26)
[2017-08-13] MEDS: Levothyroxine 50 MCG TAB PO SCH (06:47)
[2017-08-13 07:01] LABS: HEMATOCRIT 25.8 % (34.0-47.0); MEAN CELL VOLUME 97.7 fl (81.0-99.0); MEAN CORPUSCULAR HEMOGLOBIN 31.3 pg (27.0-31.0); MEAN CORPUSCULAR HGB CONC 32.1 g/dL (33.0-37.0); RED CELL DISTRIBUTION WIDTH 15.6 % (11.5-14.5); WHITE BLOOD COUNT 7.2 K/uL (4.8-10.8)
[2017-08-13 07:13] LABS: CALCIUM 8.9 mg/dL (8.4-10.2); POTASSIUM 3.7 MMOL/L (3.6-5.0)
[2017-08-13 07:21] LABS: PARTIAL THROMBOPLASTIN TIME 27.1 Seconds (25.6-37.1)
[2017-08-13 07:28] LABS: T4 5.48 ug/dl (5.5-11.0)
[2017-08-13 07:42] LABS: THYROID STIMULATING HORMONE 17.8 mIU/ML (0.46-4.68)
--- NOTE | 2017-08-13 12:14 | HP ---
HISTORY OF PRESENT ILLNESS: Ms. Argueta is an 82-year-old female who was admitted via the emergency room because of swelling of the left lower extremity for 1 week. She had trouble walking around and was brought to the emergency room. She also complained of leg pain with some dizziness. She had stopped taking Coumadin which she had been on for quite a while about a week ago as per her primary care doctor and started it again after swelling of the lower extremities. PAST MEDICAL HISTORY: Atrial fibrillation, deep venous thrombosis of extremities, hypertension, hyperlipidemia, hypothyroidism, lung cancer in the past and pulmonary embolism and also breast cancer of right breast status post surgical resection. She followed up with a doctor in [place]. FAMILY HISTORY: Noncontributory. SOCIAL HISTORY: Does not smoke or drink. REVIEW OF SYSTEMS: Essentially unremarkable. PHYSICAL EXAMINATION GENERAL: The patient is alert and oriented, appears to be comfortable at present except for having complaint of abdominal pain when she came in, but the pain has resolved after she moved her bowels. VITAL SIGNS: Blood pressure 118/69 with a pulse of 94, respiratory rate 16. She is afebrile. O2 sat 98% on room air. SKIN: Shows fair turgor. Scar of right breast surgery noted. HEENT: Pupils equal, reactive to light and accommodation. Mouth shows fair hygiene. JVP is flat. LUNGS: Clear. HEART: Regular, no murmurs or gallops. ABDOMEN: Soft, nontender, no organomegaly. EXTREMITIES: Shows edema of both lower extremities, left worse than right. There is no calf tenderness. CENTRAL NERVOUS SYSTEM: The patient is alert and oriented x3. LABORATORY DATA: WBC 10.0, hemoglobin 9.7, platelet count of 199,000. PT 17, INR of 1.5. Sodium 137, potassium 6.1, BUN of 60, creatinine 2.0. AST 122, ALT 71, troponin less than 0.012. EKG: Normal sinus rhythm with sinus arrhythmia. Ultrasound of lower extremities is remarkable for left common femoral and superficial femoral vein DVT. 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 PLAN: Hematology evaluation. The patient is already started on IV heparin. We will restart Coumadin and monitor PT, PTT and INR closely. Further therapy will depend on the findings. Rangel Romero MD [facility] # [id number]
--- NOTE | 2017-08-13 17:01 | CP.PCM.PN ---
Subjective - Date & Time of Evaluation Date of Evaluation: 08/13/17 Time of Evaluation: 16:52 - Subjective Subjective: This is a 82 yrs old female who as a past h/o breast cancer and lung both of which were resected and she has been in remission for the last 5 yrs. She however had an episode of PE and has been on coumadin since. She fell about 2 months ago and had a lot of bruises. The coumadin was stopped and never restarted,.She developed a left lower extremity DVT and was brought to the ER . her INR was only 1.2 . I would have liked to start her on lovenox but she refused saying she had a bad experience with it. This happened before her lung surgery and she had a fair amount of bleeding because of it, I started her on reg insulin after a loading dose of 5000units. She is doing well and is now also on coumadin. She does of have any hypercoagulopathies syndromes. Objective - Vital Signs/Intake and Output Vital Signs (last 24 hours): Temp Pulse Resp BP Pulse Ox 97.5 F L 70 16 104/50 L 97 08/13/17 14:04 08/13/17 14:21 08/13/17 14:21 08/13/17 14:04 08/13/17 14:04 - Medications Medications: Current Medications Levothyroxine Sodium (Synthroid) 50 mcg PO DAILY@0630 [facility] Last Admin: 08/13/17 06:47 Dose: 50 mcg Oxycodone/Acetaminophen (Percocet 5/325 Mg Tab) 1 tab PO Q4 PRN PRN Reason: Pain, moderate (4-7) Stop: 08/15/17 20:34 Warfarin Sodium (Coumadin) 5 mg PO QD5 [facility] PRN Reason: Protocol Stop: 08/13/17 17:01 - Labs Labs: 08/13/17 06:15 08/13/17 06:15 PT 18.1 Seconds (9.8-13.1) H 08/13/17 06:15 INR 1.6 (0.9-1.2) H 08/13/17 06:15 APTT 27.1 Seconds (25.6-37.1) D 08/13/17 06:15 - Additional Findings Additional findings: P/e alert, well oriented in no acute distrewss. neck; supple, no adenopatht chest; Clear, no rales or rhonchi Heart; RSR, no murmur Abd; Spft,no mass no h/s megaly Lower extremity; left le has swelling all the way up to the groin. There is redness in the inner thigh area. Assessment and Plan - Assessment and Plan (Free Text) Assessment: IMP; DVT left lower extremity. Plan: Plan; will start on regular insulin and on coumadin the next day. Will keep her on reg insulin until the ciumadin is in the therapeutic range
[2017-08-14] MEDS: Levothyroxine 50 MCG TAB PO SCH (05:48)
--- NOTE | 2017-08-14 08:24 | PQF GENQUE ---
This form is a permanent part of the medical record 08/14/17 Dr. 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 Please specify the acuity of this condition with terms such as: Acute Chronic Acute on chronic Other (please specify in the medical record) Clinically unable to further specify Unknown Admitted with left leg swelling and trouble walking around. History of atrial fibrillation, DVT, pulmonary embolism and malignancy of the breast and lung. US of lower extremities + DVT. Started on Coumadin. Clarification of your documentation is requested to better reflect the severity of illness and intensity of treatment of your patient. Indicators present [x] Specify: []acute dvt of l leg [] Specify: [] [] Specify: [] [] Specify: [] Location in the medical record that reflects the above clinical findings: [] Treatment Provided: [] PHYSICIAN'S RESPONSE Acuity of bilateral deep venous thrombosis : [] Acute [] Chronic [] Acute on chronic [] Other (please specify in the medical record) [] Clinically unable to further specify [] Unknown Based on your medical judgment of the clinical indicators outlined above please clarify the following: [] Practitioner response [] If unable to determine, please check the box, sign and date. Present On Admission (POA) Indicator: [] Present at the time of admission [] Not present at the time of admission [] Clinically Undetermined In responding to this query, please exercise your independent professional judgment. The fact that a question is asked does not imply that any particular answer is desired or expected. Thank you for your clarification on this documentation. If you have any questions please call:ext [phone] * Thank you, Dedra Moore RN CD[facility]
--- NOTE | 2017-08-14 08:35 | PQF GENQUE ---
This form is a permanent part of the medical record 08/14/17 Dr. Romero, Would you please clarify if there is an associated diagnosis or not to go along with the elevated BUN and Creatinine. Admitted with left leg swelling and trouble walking. ER Diagnoses include: DVT, Dehydration, Renal Insufficiency. Treated with IVF in the ER. BUN 60, 51, Creatinine 2.0, 1.7 GFR ( ) 29, 35 GFR ( Non ) 24, 29 Clarification of your documentation is requested to better reflect the severity of illness and intensity of treatment of your patient. Indicators present [] Specify: [] [] Specify: [] [] Specify: [] [] Specify: [] Location in the medical record that reflects the above clinical findings: [] Treatment Provided: [] PHYSICIAN'S RESPONSE Based on your medical judgment of the clinical indicators outlined above please clarify the following: [] Practitioner response [] If unable to determine, please check the box, sign and date. Present On Admission (POA) Indicator: [] Present at the time of admission [] Not present at the time of admission [] Clinically Undetermined In responding to this query, please exercise your independent professional judgment. The fact that a question is asked does not imply that any particular answer is desired or expected. Thank you for your clarification on this documentation. If you have any questions please call:ext [phone] * Thank you, Dedra Moore RN [facility]
--- NOTE | 2017-08-14 09:15 | CP.PCM.PN ---
Subjective - Date & Time of Evaluation Date of Evaluation: 08/14/17 Time of Evaluation: 09:16 - Subjective Subjective: SWELLING OF L LEG AND PAIN IMPROVED MORE AWAKE AND ALERT Objective - Vital Signs/Intake and Output Vital Signs (last 24 hours): Temp Pulse Resp BP Pulse Ox 98.3 F 75 20 105/58 L 96 08/14/17 08:00 08/14/17 08:00 08/14/17 08:00 08/14/17 08:00 08/14/17 08:00 - Medications Medications: Current Medications Levothyroxine Sodium (Synthroid) 50 mcg PO DAILY@0630 [facility] Last Admin: 08/14/17 05:48 Dose: 50 mcg Oxycodone/Acetaminophen (Percocet 5/325 Mg Tab) 1 tab PO Q4 PRN PRN Reason: Pain, moderate (4-7) Stop: 08/15/17 20:34 - Labs Labs: 08/13/17 06:15 08/13/17 06:15 PT 17.1 Seconds (9.8-13.1) H 08/14/17 04:25 INR 1.5 (0.9-1.2) H 08/14/17 04:25 APTT 27.1 Seconds (25.6-37.1) D 08/13/17 06:15 - Constitutional Appears: No Acute Distress - Head Exam Head Exam: ATRAUMATIC, NORMAL INSPECTION, NORMOCEPHALIC - Eye Exam Eye Exam: EOMI, Normal appearance, PERRL Pupil Exam: NORMAL ACCOMODATION, PERRL - ENT Exam ENT Exam: Mucous Membranes Moist, Normal Exam - Neck Exam Neck Exam: Full ROM, Normal Inspection. absent: Lymphadenopathy - Respiratory Exam Respiratory Exam: Clear to Ausculation Bilateral, NORMAL BREATHING PATTERN - Cardiovascular Exam Cardiovascular Exam: REGULAR RHYTHM, +S1, +S2. absent: Murmur - GI/Abdominal Exam GI & Abdominal Exam: Soft, Normal Bowel Sounds. absent: Tenderness - Rectal Exam Rectal Exam: NORMAL INSPECTION - Extremities Exam Extremities Exam: Full ROM, Normal Capillary Refill, Normal Inspection. absent : Joint Swelling, Pedal Edema Additional comments: EDEMA AND TENDERNESS OF L LEG IMPROVED - Back Exam Back Exam: NORMAL INSPECTION - Neurological Exam Neurological Exam: Alert, Awake, CN II-XII Intact, Normal Gait, Oriented x3 - Psychiatric Exam Psychiatric exam: Normal Affect, Normal Mood - Skin Skin Exam: Dry, Intact, Normal Color, Warm Assessment and Plan - Assessment and Plan (Free Text) Assessment: ACUTE DVT L LEG CHRONIC ANEMIA HX OF LUNG CANCER IN THE PAST HX OF PULMONARY EMBOLI Plan: CONTINUE HEPARIN AND COUMADIN MAY NEED IV IRON WILL DISCHARGE ONCE INR IS THERAPEUTIC BEEF CATTLE FARMER TO SEE PT [facility]
--- NOTE | 2017-08-14 10:51 | CP.PCM.PN ---
Subjective - Date & Time of Evaluation Date of Evaluation: 08/14/17 Time of Evaluation: 10:49 - Subjective Subjective: Pt's left lower extremity is much better even though she still has a little redness in te inner thigh. Her inr was 1.5 so same dose of coumadin was given. The heparin can be discontinued as soon as the inr is in the therapeutic range. Objective - Vital Signs/Intake and Output Vital Signs (last 24 hours): Temp Pulse Resp BP Pulse Ox 98.3 F 75 20 105/58 L 96 08/14/17 08:00 08/14/17 08:00 08/14/17 08:00 08/14/17 08:00 08/14/17 08:00 - Medications Medications: Current Medications Docusate Sodium (Colace) 100 mg PO BID [facility] Heparin Sodium/Dextrose (Heparin 25,000 Units/250ml In D5w) 25,000 units in 250 mls @ 13 mls/hr IV .[id number] [facility] PRN Reason: Protocol Iron Sucrose 100 mg/ Sodium (Chloride) 105 mls @ 105 mls/hr IVPB DAILY [facility] Levothyroxine Sodium (Synthroid) 50 mcg PO DAILY@0630 [facility] Last Admin: 08/14/17 05:48 Dose: 50 mcg Oxycodone/Acetaminophen (Percocet 5/325 Mg Tab) 1 tab PO Q4 PRN PRN Reason: Pain, moderate (4-7) Stop: 08/15/17 20:34 Warfarin Sodium (Coumadin) 5 mg PO QD5 [facility] PRN Reason: Protocol Stop: 08/14/17 17:01 - Labs Labs: 08/13/17 06:15 08/13/17 06:15 PT 17.1 Seconds (9.8-13.1) H 08/14/17 04:25 INR 1.5 (0.9-1.2) H 08/14/17 04:25 APTT 27.1 Seconds (25.6-37.1) D 08/13/17 06:15
[2017-08-14] MEDS: Heparin 25,000units in D5W 25,000 UNITS/250 ML BAG IV SCH (11:48)
[2017-08-14 20:17] LABS: PARTIAL THROMBOPLASTIN TIME 92.4 Seconds (25.6-37.1)
[2017-08-15] MEDS: Heparin 25,000units in D5W 25,000 UNITS/250 ML BAG IV SCH (04:40)
[2017-08-15 06:16] LABS: PARTIAL THROMBOPLASTIN TIME 103.3 Seconds (25.6-37.1)
[2017-08-15] MEDS: Levothyroxine 50 MCG TAB PO SCH (06:28)
--- NOTE | 2017-08-15 06:34 | PQF GENQUE ---
This form is a permanent part of the medical record 08/15/17 Dr. Romero, Would you please clarify if you are in agreement or not with the gluteal cleft stage I pressure ulcer present on admission. If yes please document . REJECT OPENER note with the following documentation: " noted a small superficial wound to lt. inner buttock area". 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 Clarification of your documentation is requested to better reflect the severity of illness and intensity of treatment of your patient. Indicators present Based on your medical judgment of the clinical indicators outlined above please clarify the following: [] Practitioner response [] If unable to determine, please check the box, sign and date. Present On Admission (POA) Indicator: [] Present at the time of admission [] Not present at the time of admission [] Clinically Undetermined In responding to this query, please exercise your independent professional judgment. The fact that a question is asked does not imply that any particular answer is desired or expected. Thank you for your clarification on this documentation. If you have any questions please call:ext [phone] * Thank you, Dedra Moore RN CDNEW [facility]
--- NOTE | 2017-08-15 10:08 | CP.PCM.PN ---
Subjective - Date & Time of Evaluation Date of Evaluation: 08/15/17 Time of Evaluation: 10:10 - Subjective Subjective: L LEG PAIN IMPROVED Objective - Vital Signs/Intake and Output Vital Signs (last 24 hours): Temp Pulse Resp BP Pulse Ox 98.1 F 69 20 107/68 97 08/15/17 08:32 08/15/17 08:32 08/15/17 08:32 08/15/17 08:32 08/15/17 08:32 - Medications Medications: Current Medications Docusate Sodium (Colace) 100 mg PO BID [facility] Last Admin: 08/15/17 08:23 Dose: 100 mg Heparin Sodium/Dextrose (Heparin 25,000 Units/250ml In D5w) 25,000 units in 250 mls @ 13 mls/hr IV .[id number] [facility] PRN Reason: Protocol Last Admin: 08/15/17 04:40 Dose: Not Given Iron Sucrose 100 mg/ Sodium (Chloride) 105 mls @ 105 mls/hr IVPB DAILY [facility] Last Admin: 08/15/17 08:23 Dose: 105 mls/hr Levothyroxine Sodium (Synthroid) 50 mcg PO DAILY@0630 [facility] Last Admin: 08/15/17 06:28 Dose: 50 mcg Oxycodone/Acetaminophen (Percocet 5/325 Mg Tab) 1 tab PO Q4 PRN PRN Reason: Pain, moderate (4-7) Stop: 08/15/17 20:34 Warfarin Sodium (Coumadin) 5 mg PO QD5 [facility] PRN Reason: Protocol Stop: 08/15/17 17:01 - Labs Labs: 08/13/17 06:15 08/13/17 06:15 PT 21.2 Seconds (9.8-13.1) H 08/15/17 04:30 INR 1.9 (0.9-1.2) H 08/15/17 04:30 APTT 103.3 Seconds (25.6-37.1) H* D 08/15/17 04:30 - Constitutional Appears: No Acute Distress - Head Exam Head Exam: ATRAUMATIC, NORMAL INSPECTION, NORMOCEPHALIC - Eye Exam Eye Exam: EOMI, Normal appearance, PERRL Pupil Exam: NORMAL ACCOMODATION, PERRL - ENT Exam ENT Exam: Mucous Membranes Moist, Normal Exam - Neck Exam Neck Exam: Full ROM, Normal Inspection. absent: Lymphadenopathy - Respiratory Exam Respiratory Exam: Clear to Ausculation Bilateral, NORMAL BREATHING PATTERN - Cardiovascular Exam Cardiovascular Exam: REGULAR RHYTHM, +S1, +S2. absent: Murmur - GI/Abdominal Exam GI & Abdominal Exam: Soft, Normal Bowel Sounds. absent: Tenderness - Rectal Exam Rectal Exam: NORMAL INSPECTION - Extremities Exam Extremities Exam: Full ROM, Normal Capillary Refill, Normal Inspection. absent : Joint Swelling, Pedal Edema Additional comments: L LEG EDEMA IMPROVED LESS REDNESS - Back Exam Back Exam: NORMAL INSPECTION - Neurological Exam Neurological Exam: Alert, Awake, CN II-XII Intact, Normal Gait, Oriented x3 - Psychiatric Exam Psychiatric exam: Normal Affect, Normal Mood - Skin Skin Exam: Dry, Intact, Normal Color, Warm Assessment and Plan - Assessment and Plan (Free Text) Assessment: DVT L LEG IMPROVED ANEMIA Plan: INCREASE ACTIVITY CONTINUE HEPARIN AND COUMADIN RX MONITOR HB AND INR D/C IN AM IF INR IS THERAPEUTIC
[2017-08-15] MEDS ORDERED: Heparin 25,000units in D5W 25,000 UNITS/250 ML BAG IV SCH (11:30)
[2017-08-16 06:11] LABS: HEMATOCRIT 24.4 % (34.0-47.0); MEAN CELL VOLUME 96.8 fl (81.0-99.0); MEAN CORPUSCULAR HGB CONC 33.1 g/dL (33.0-37.0); RED CELL DISTRIBUTION WIDTH 15.5 % (11.5-14.5); WHITE BLOOD COUNT 5.3 K/uL (4.8-10.8)
[2017-08-16 06:16] LABS: PARTIAL THROMBOPLASTIN TIME 76.4 Seconds (25.6-37.1)
[2017-08-16 06:22] LABS: CALCIUM 8.9 mg/dL (8.4-10.2); POTASSIUM 3.8 MMOL/L (3.6-5.0)
[2017-08-16] MEDS: Levothyroxine 50 MCG TAB PO SCH (06:33)
[2017-08-16 09:06] LABS: ALB/GLOB RATIO 0.8 (1.0-2.1); BILIRUBIN,TOTAL 0.3 mg/dl (0.2-1.3); TOTAL PROTEIN 6.9 G/DL (6.3-8.2)
--- NOTE | 2017-08-16 09:31 | CP.PCM.PN ---
Subjective - Date & Time of Evaluation Date of Evaluation: 08/16/17 Time of Evaluation: 09:27 - Subjective Subjective: Pt is doing well, and the INR today was 2.3. Will discontinue the heparin drip and continue the coumadin at 5 mg daily.. Will also give her 200 mg of venofer on 08/16 and 08/17.Prior to sending her home. Objective - Vital Signs/Intake and Output Vital Signs (last 24 hours): Temp Pulse Resp BP Pulse Ox 97.4 F L 69 20 109/65 95 08/16/17 08:05 08/16/17 08:05 08/16/17 08:05 08/16/17 08:05 08/16/17 08:05 - Medications Medications: Current Medications Docusate Sodium (Colace) 100 mg PO BID [facility] Last Admin: 08/15/17 17:21 Dose: 100 mg Iron Sucrose 200 mg/ Sodium (Chloride) 110 mls @ 110 mls/hr IVPB DAILY [facility] Levothyroxine Sodium (Synthroid) 50 mcg PO DAILY@0630 [facility] Last Admin: 08/16/17 06:33 Dose: 50 mcg Warfarin Sodium (Coumadin) 5 mg PO QD5 [facility] PRN Reason: Protocol Stop: 08/16/17 17:01 - Labs Labs: 08/16/17 05:25 08/16/17 05:25 PT 26.6 Seconds (9.8-13.1) H D 08/16/17 05:25 INR 2.3 (0.9-1.2) H 08/16/17 05:25 APTT 76.4 Seconds (25.6-37.1) H D 08/16/17 05:25
--- NOTE | 2017-08-16 09:41 | CP.PCM.PN ---
Subjective - Date & Time of Evaluation Date of Evaluation: 08/16/17 Time of Evaluation: 09:43 - Subjective Subjective: CLINICALLY IMPROVING L LEG EDEMA LESS ERYTHEMA OF L LEG IMPROVED Objective - Vital Signs/Intake and Output Vital Signs (last 24 hours): Temp Pulse Resp BP Pulse Ox 97.4 F L 69 20 109/65 95 08/16/17 08:05 08/16/17 08:05 08/16/17 08:05 08/16/17 08:05 08/16/17 08:05 - Medications Medications: Current Medications Docusate Sodium (Colace) 100 mg PO BID [facility] Last Admin: 08/15/17 17:21 Dose: 100 mg Iron Sucrose 200 mg/ Sodium (Chloride) 110 mls @ 110 mls/hr IVPB DAILY [facility] Levothyroxine Sodium (Synthroid) 50 mcg PO DAILY@0630 [facility] Last Admin: 08/16/17 06:33 Dose: 50 mcg Warfarin Sodium (Coumadin) 5 mg PO QD5 [facility] PRN Reason: Protocol Stop: 08/16/17 17:01 - Labs Labs: 08/16/17 05:25 08/16/17 05:25 PT 26.6 Seconds (9.8-13.1) H D 08/16/17 05:25 INR 2.3 (0.9-1.2) H 08/16/17 05:25 APTT 76.4 Seconds (25.6-37.1) H D 08/16/17 05:25 - Constitutional Appears: Chronically Ill - Head Exam Head Exam: ATRAUMATIC, NORMAL INSPECTION, NORMOCEPHALIC - Eye Exam Eye Exam: EOMI, Normal appearance, PERRL Pupil Exam: NORMAL ACCOMODATION, PERRL - ENT Exam ENT Exam: Mucous Membranes Moist, Normal Exam - Neck Exam Neck Exam: Full ROM, Normal Inspection. absent: Lymphadenopathy - Respiratory Exam Respiratory Exam: Clear to Ausculation Bilateral, NORMAL BREATHING PATTERN - Cardiovascular Exam Cardiovascular Exam: REGULAR RHYTHM, +S1, +S2. absent: Murmur - GI/Abdominal Exam GI & Abdominal Exam: Soft, Normal Bowel Sounds. absent: Tenderness - Rectal Exam Rectal Exam: NORMAL INSPECTION - Extremities Exam Extremities Exam: Full ROM, Normal Capillary Refill, Normal Inspection, Pedal Edema. 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
[2017-08-17] MEDS: Levothyroxine 50 MCG TAB PO SCH (06:20)
[2017-08-17 07:15] LABS: HEMATOCRIT 24.2 % (34.0-47.0); MEAN CELL VOLUME 97.9 fl (81.0-99.0); MEAN CORPUSCULAR HEMOGLOBIN 32.1 pg (27.0-31.0); MEAN CORPUSCULAR HGB CONC 32.8 g/dL (33.0-37.0); RED CELL DISTRIBUTION WIDTH 15.7 % (11.5-14.5); WHITE BLOOD COUNT 6.2 K/uL (4.8-10.8)
--- NOTE | 2017-08-17 09:20 | CP.PCM.PN ---
Subjective - Date & Time of Evaluation Date of Evaluation: 08/17/17 Time of Evaluation: 09:18 - Subjective Subjective: Pt's right lowerm extremity looks less erythematous and less swollen. Her INR today is 2.7. will continue the 5 mg of coumadin . Her hgb however is 7.9 no lizett bleeding seen. Will give him 2 units of blood before she is discharged. Objective - Vital Signs/Intake and Output Vital Signs (last 24 hours): Temp Pulse Resp BP Pulse Ox 97.9 F 102 H 20 121/68 100 08/17/17 07:39 08/17/17 07:39 08/17/17 07:39 08/17/17 07:39 08/17/17 07:39 - Medications Medications: Current Medications Docusate Sodium (Colace) 100 mg PO BID [facility] Last Admin: 08/16/17 17:10 Dose: 100 mg Iron Sucrose 200 mg/ Sodium (Chloride) 110 mls @ 110 mls/hr IVPB DAILY [facility] Last Admin: 08/16/17 11:03 Dose: 110 mls/hr Levothyroxine Sodium (Synthroid) 50 mcg PO DAILY@0630 [facility] Last Admin: 08/17/17 06:20 Dose: 50 mcg - Labs Labs: 08/17/17 06:05 08/16/17 05:25 PT 31.2 Seconds (9.8-13.1) H 08/17/17 06:05 INR 2.7 (0.9-1.2) H 08/17/17 06:05 APTT 76.4 Seconds (25.6-37.1) H D 08/16/17 05:25
[2017-08-17] MEDS ORDERED: DiphenhydrAMINE 50 mg/ml Inj IVP STA (09:25)
[2017-08-17] MEDS ORDERED: MethylPREDNISolone 40 mg Vial IVP ONE (10:00)
--- NOTE | 2017-08-17 11:56 | CP.PCM.PN ---
Subjective - Date & Time of Evaluation Date of Evaluation: 08/17/17 Time of Evaluation: 11:56 - Subjective Subjective: FEELS BETTER L LEG EDEMA LESS--NO TENDERNESS Objective - Vital Signs/Intake and Output Vital Signs (last 24 hours): Temp Pulse Resp BP Pulse Ox 97.9 F 102 H 20 121/68 100 08/17/17 07:39 08/17/17 07:39 08/17/17 07:39 08/17/17 07:39 08/17/17 07:39 - Medications Medications: Current Medications Docusate Sodium (Colace) 100 mg PO BID [facility] Last Admin: 08/16/17 17:10 Dose: 100 mg Iron Sucrose 200 mg/ Sodium (Chloride) 110 mls @ 110 mls/hr IVPB DAILY [facility] Last Admin: 08/17/17 10:42 Dose: 110 mls/hr Levothyroxine Sodium (Synthroid) 50 mcg PO DAILY@0630 [facility] Last Admin: 08/17/17 06:20 Dose: 50 mcg Warfarin Sodium (Coumadin) 5 mg PO QD5 [facility] PRN Reason: Protocol Stop: 08/17/17 17:01 - Labs Labs: 08/17/17 06:05 08/16/17 05:25 PT 31.2 Seconds (9.8-13.1) H 08/17/17 06:05 INR 2.7 (0.9-1.2) H 08/17/17 06:05 APTT 76.4 Seconds (25.6-37.1) H D 08/16/17 05:25 - Constitutional Appears: No Acute Distress - Head Exam Head Exam: ATRAUMATIC, NORMAL INSPECTION, NORMOCEPHALIC - Eye Exam Eye Exam: EOMI, Normal appearance, PERRL Pupil Exam: NORMAL ACCOMODATION, PERRL - ENT Exam ENT Exam: Mucous Membranes Moist, Normal Exam - Neck Exam Neck Exam: Full ROM, Normal Inspection. absent: Lymphadenopathy - Respiratory Exam Respiratory Exam: Clear to Ausculation Bilateral, NORMAL BREATHING PATTERN - Cardiovascular Exam Cardiovascular Exam: REGULAR RHYTHM, +S1, +S2. absent: Murmur - GI/Abdominal Exam GI & Abdominal Exam: Soft, Normal Bowel Sounds. absent: Tenderness - Rectal Exam Rectal Exam: NORMAL INSPECTION - Extremities Exam Extremities Exam: Full ROM, Normal Capillary Refill, Normal Inspection, Pedal Edema. absent: Joint Swelling - Back Exam Back Exam: NORMAL INSPECTION - Neurological Exam Neurological Exam: Alert, Awake, CN II-XII Intact, Normal Gait, Oriented x3 - Psychiatric Exam Psychiatric exam: Normal Affect, Normal Mood - Skin Skin Exam: Dry, Intact, Normal Color, Warm Assessment and Plan - Assessment and Plan (Free Text) Assessment: BILATERAL DVT OF R AND L LEGS ANEMIA-?ETIOLOGY HX OF BREAST CANCER DEHYDRATION RESOLVED Plan: TRANSFUSE PRBS AND IRON HOLD D/C PLANS TILL AM PT ADVISED OUTPT GI EVAL TO DETERMINE SOURCE OF BLOOD LOSS
[2017-08-17 13:44] VITALS: RESP 18
[2017-08-17 16:20] VITALS: O2SAT 95
[2017-08-18 01:08] VITALS: BP 127/71; PULSE 86; TEMP 97.6
[2017-08-18] MEDS: Levothyroxine 50 MCG TAB PO SCH (06:42)
[2017-08-18 07:02] LABS: HEMATOCRIT 31.6 % (34.0-47.0); MEAN CELL VOLUME 94.6 fl (81.0-99.0); MEAN CORPUSCULAR HEMOGLOBIN 31.2 pg (27.0-31.0); RED CELL DISTRIBUTION WIDTH 17.3 % (11.5-14.5); WHITE BLOOD COUNT 11.3 K/uL (4.8-10.8)
[2017-08-18] MEDS ORDERED: methylPREDNISolone 40 MG in Sodium Chloride 0.9% 50 ML IVPB ONE (09:00)
--- NOTE | 2017-08-18 09:10 | CP.PCM.DIS ---
Provider - Provider Date of Admission: 08/12/17 15:31 Attending physician: Rangel Romero MD Primary care physician: Provider TBD Consults: 08/12/17 20:41 Wound Care [Nursing Referral for Wound Care] Routine Comment: Physician Instructions: Reason For Exam: left buttock redness Time Spent in preparation of Discharge (in minutes): 30 Diagnosis - Discharge Diagnosis (1) History of breast cancer Status: Acute (2) History of lung cancer Status: Acute (3) History of pulmonary embolism Status: Acute (4) Decubitus ulcer of sacral region, stage 1 Status: Acute Hospital Course - Lab Results Lab Results: Micro Results 08/12/17 11:00 Blood Blood Culture - Final NO GROWTH AFTER 5 DAYS 08/12/17 11:00 Blood Gram Stain - Final TEST NOT PERFORMED 08/12/17 11:00 Blood Blood Culture - Final NO GROWTH AFTER 5 DAYS 08/12/17 11:00 Blood Gram Stain - Final TEST NOT PERFORMED Most Recent Lab Values WBC 11.3 K/uL (4.8-10.8) H D 08/18/17 05:20 RBC 3.33 Mil/uL (3.80-5.20) L 08/18/17 05:20 Hgb 10.4 g/dL (12.0-16.0) L D 08/18/17 05:20 Hct 31.6 % (34.0-47.0) L 08/18/17 05:20 MCV 94.6 fl (81.0-99.0) D 08/18/17 05:20 MCH 31.2 pg (27.0-31.0) H 08/18/17 05:20 MCHC 33.0 g/dL (33.0-37.0) 08/18/17 05:20 RDW 17.3 % (11.5-14.5) H 08/18/17 05:20 Plt Count 214 K/uL (130-400) 08/18/17 05:20 MPV 9.6 fl (7.2-11.7) 08/12/17 11:00 Neut % (Auto) 95.1 % (50.0-75.0) H 08/12/17 11:00 Lymph % (Auto) 3.1 % (20.0-40.0) L 08/12/17 11:00 [place] % (Auto) 1.5 % (0.0-10.0) 08/12/17 11:00 Eos % (Auto) 0.3 % (0.0-4.0) 08/12/17 11:00 Baso % (Auto) 0.0 % (0.0-2.0) 08/12/17 11:00 Neut # 9.5 K/uL (1.8-7.0) H 08/12/17 11:00 Lymph # 0.3 K/uL (1.0-4.3) L 08/12/17 11:00 [place] # 0.2 K/uL (0.0-0.8) 08/12/17 11:00 Eos # 0.0 K/uL (0.0-0.7) 08/12/17 11:00 Baso # 0.0 K/uL (0.0-0.2) 08/12/17 11:00 Neutrophils % (Manual) 97 % (42-75) H 08/12/17 11:00 Lymphocytes % (Manual) 1 % (20-50) L 08/12/17 11:00 Monocytes % (Manual) 2 % (0-10) 08/12/17 11:00 Platelet Estimate Normal (NORMAL) 08/12/17 11:00 Large Platelets Present 08/12/17 11:00 Hypochromasia (manual) Slight 08/12/17 11:00 Anisocytosis (manual) Slight 08/12/17 11:00 Ovalocytes Slight 08/12/17 11:00 PT 40.2 Seconds (9.8-13.1) H* 08/18/17 05:20 INR 3.5 (0.9-1.2) H 08/18/17 05:20 APTT 76.4 Seconds (25.6-37.1) H D 08/16/17 05:25 pO2 10 mm/Hg (30-55) L 08/12/17 10:38 VBG pH 7.39 (7.32-7.43) 08/12/17 10:38 VBG pCO2 53 mmHg (40-60) 08/12/17 10:38 VBG HCO3 28.0 mmol/L 08/12/17 10:38 VBG Total CO2 33.7 mmol/L (22-28) H 08/12/17 10:38 VBG O2 Sat (Calc) 13.5 % (40-65) L 08/12/17 10:38 VBG Base Excess 6.1 mmol/L (0.0-2.0) H 08/12/17 10:38 VBG Potassium 7.5 mmol/L (3.6-5.2) H* 08/12/17 10:38 A-a O2 Difference 73.0 mm/Hg 08/12/17 10:38 Sodium 132.0 mmol/L (132-148) 08/12/17 10:38 Chloride 97.0 mmol/L (98-107) L 08/12/17 10:38 Glucose 117 mg/dL (65-105) H 08/12/17 10:38 Lactate 1.8 mmol/L (0.7-2.1) 08/12/17 10:38 FiO2 21.0 % 08/12/17 10:38 Crit Value Called To Dr maile mckeon 08/12/17 10:38 Crit Value Called By Shabbir 08/12/17 10:38 Crit Value Read Back Y 08/12/17 10:38 Blood Gas Notified Time 1105 08/12/17 10:38 Sodium 142 mmol/l (132-148) 08/16/17 05:25 Potassium 3.8 MMOL/L (3.6-5.0) 08/16/17 05:25 Chloride 104 mmol/L (98-107) 08/16/17 05:25 Carbon Dioxide 30 mmol/L (22-30) 08/16/17 05:25 Anion Gap 12 (10-20) 08/16/17 05:25 BUN 37 mg/dl (7-17) H 08/16/17 05:25 Creatinine 1.4 mg/dl (0.7-1.2) H 08/16/17 05:25 Est GFR ( Amer) 44 08/16/17 05:25 Est GFR (Non-Af Amer) 36 08/16/17 05:25 Random Glucose 97 mg/dL (65-105) 08/16/17 05:25 Calcium 8.9 mg/dL (8.4-10.2) 08/16/17 05:25 Total Bilirubin 0.3 mg/dl (0.2-1.3) 08/16/17 05:25 Direct Bilirubin 0.3 mg/ml (0.0-0.4) 08/16/17 05:25 AST 59 U/L (14-36) H D 08/16/17 05:25 ALT 56 U/L (9-52) H D 08/16/17 05:25 Alkaline Phosphatase 139 U/L (38-126) H 08/16/17 05:25 Troponin I < 0.0120 ng/mL (0.00-0.120) 08/12/17 11:00 NT-Pro-B Natriuret Pep 221 pg/ml (0-900) 08/12/17 11:00 Total Protein 6.9 G/DL (6.3-8.2) 08/16/17 05:25 Albumin 3.1 g/dL (3.5-5.0) L D 08/16/17 05:25 Globulin 3.8 gm/dL (2.2-3.9) 08/16/17 05:25 Albumin/Globulin Ratio 0.8 (1.0-2.1) L 08/16/17 05:25 Thyroxine (T4) 5.48 ug/dl (5.5-11.0) L 08/13/17 06:15 TSH 3rd Generation 17.80 mIU/ML (0.46-4.68) H 08/13/17 06:15 Venous Blood Potassium 7.5 mmol/L (3.6-5.2) H* 08/12/17 10:38 Blood Type O POSITIVE 08/17/17 09:50 Antibody Screen Negative 08/17/17 09:50 Crossmatch See Detail 08/17/17 09:50 BBK History Checked Patient has bt 08/17/17 09:50 - Hospital Course Hospital Course: swelling and pain of legs improved sacral skin irritation improved Discharge Exam - Head Exam Head Exam: ATRAUMATIC, NORMAL INSPECTION, NORMOCEPHALIC - Eye Exam Eye Exam: EOMI, Normal appearance, PERRL Pupil Exam: NORMAL ACCOMODATION, PERRL - GI/Abdominal Exam GI & Abdominal Exam: Normal Bowel Sounds - Rectal Exam Rectal Exam: NORMAL INSPECTION - Extremities Exam Extremities exam: pedal edema - Neurological Exam Neurological exam: Alert, CN II-XII Intact, Normal Gait, Oriented x3, Reflexes Normal - Psychiatric Exam Psychiatric exam: Normal Affect, Normal Mood - Skin Skin Exam: Dry, Intact, Normal Color, Warm Discharge Plan - Follow Up Plan Condition: FAIR Disposition: HOME/ ROUTINE Instructions: Deep Venous Thrombosis (DC) Referrals: Velma Campos MD [Staff Provider] - Rangel Romero MD [Staff Provider] -
== END 2017-08-18 13:56 | disposition home or self-care (01) | DRG 301 ==
LOC: SUPCPDRO 09:57 → H.ER 09:57 → H.ERHOLD 15:31 → H.TEL 08-13 18:29 → H.MEDSURG1 08-16 06:06
PROVIDERS: ADMIT Internal Medicine Pulmonary Disease; ATTEND Internal Medicine Pulmonary Disease
PROC: 30233N1 Transfusion of Nonautologous Red Blood Cells into Peripheral Vein, Percutaneous Approach (ICD-10-PCS; principal; 2017-08-17)
DX: I82.412 Acute embolism and thrombosis of left femoral vein (principal); L89.151 Pressure ulcer of sacral region, stage 1; I82.431 Acute embolism and thrombosis of right popliteal vein; E86.0 Dehydration; D64.9 Anemia, unspecified; I48.91 Unspecified atrial fibrillation; I82.441 Acute embolism and thrombosis of right tibial vein; Z86.711 Personal history of pulmonary embolism; Z85.3 Personal history of malignant neoplasm of breast; Z85.118 Personal history of other malignant neoplasm of bronchus and lung; Z86.718 Personal history of other venous thrombosis and embolism; I10 Essential (primary) hypertension; E03.9 Hypothyroidism, unspecified; E78.00 Pure hypercholesterolemia, unspecified; M06.9 Rheumatoid arthritis, unspecified; E78.5 Hyperlipidemia, unspecified; Z85.79 Personal history of other malignant neoplasms of lymphoid, hematopoietic and related tissues

== ENCOUNTER 2018-02-18 21:46 | Inpatient (IN) | payer MEDICARE, OTHER ==
[2018-02-18 21:47] VITALS: BMI 24.6
--- NOTE | 2018-02-18 22:39 | ED PDOC ---
HPI: General Adult Time Seen by Provider: 02/18/18 21:58 Chief Complaint (Nursing): Weakness/Neurological Deficit Chief Complaint (Provider): weakness History Per: Patient, Other (and friend) Onset/Duration Of Symptoms: Days (3), Gradual, Persistent Additional Complaint(s): 82yo woman w h/o DVT/PE and fluid retention reporting generalized weakness for 3 days, worsening since onset, decreased activity tolerance. Has had markedly decreased PO intake for about 2 weeks s/p accidentally burning mouth with hot oatmeal. Pt also reports increased swelling of bilateral legs despite taking her diuretics as prescribed. Also just noticed lesion on LEFT lower leg with redness, unknown onset. PMD Dr Gallego [facility] Past Medical History Reviewed: Historical Data, Nursing Documentation, Vital Signs Vital Signs: Last Vital Signs Temp 100.0 F H 02/19/18 00:34 Pulse 96 H 02/18/18 21:49 Resp 20 02/18/18 21:49 BP 118/66 02/18/18 21:49 Pulse Ox 96 02/18/18 23:01 - Medical History PMH: Anemia, Atrial Fibrillation, Deep Vein Thrombosis, HTN, Hypercholesterolemia, Hypothyroidism, Malignancy (Lung cancer; multipe myeloma) , Pulmonary Embolism, Rheumatoid Arthritis Denies: HIV, Chronic Kidney Disease Other PMH: Above PMH obtained from previous visits/hospitalizations - Surgical History Surgical History: Hernia Repair - Family History Family History: States: Unknown Family Hx - Home Medications Home Medications: Ambulatory Orders Medication Instructions Recorded Levothyroxine [Synthroid] 50 mcg PO DAILY@0630 #30 tab 07/09/17 Warfarin [Coumadin] 3 mg PO DAILY 08/12/17 - Allergies Allergies/Adverse Reactions: Allergies Allergy/AdvReac Type Severity Reaction Status Date / Time No Known Allergies Allergy Verified 02/18/18 21:49 Review of Systems ROS Statement: Except As Marked, All Systems Reviewed And Found Negative (and as per HPI) Constitutional: Positive for: Chills, Weakness, Malaise Cardiovascular: Positive for: Edema, Light Headedness. Negative for: Chest Pain Respiratory: Positive for: Shortness of Breath. Negative for: Cough, Sputum Musculoskeletal: Positive for: Leg Pain Skin: Positive for: Lesions Neurological: Positive for: Dizziness Physical Exam - Reviewed Nursing Documentation Reviewed: Yes Vital Signs Reviewed: Yes - Physical Exam Appears: Positive for: Non-toxic, No Acute Distress (but tired appearing) Head Exam: Positive for: ATRAUMATIC, NORMOCEPHALIC Skin: Positive for: Warm, Dry Eye Exam: Positive for: EOMI, PERRL, Other (green yellow dry secretions LEFT eye.) ENT: Positive for: Other (lesions bilateral inner cheek mucosa LEFT > RIGHT, tacky mucus membranes) Neck: Positive for: Painless ROM, Supple Cardiovascular/Chest: Positive for: Regular Rate, Rhythm. Negative for: Murmur Respiratory: Positive for: Normal Breath Sounds. Negative for: Wheezing Gastrointestinal/Abdominal: Positive for: Soft. Negative for: Tenderness, Mass , Distended, Guarding Back: Positive for: Normal Inspection. Negative for: Decreased ROM Extremity: Positive for: Pedal Edema (bilateral lower leg 3+ pitting, LEFT lower leg with circular reddish brown lesion with brown eschar and surrounding erythema and induration) Lymphatic: Negative for: Adenopathy Neurologic/Psych: Positive for: Alert. Negative for: Motor/Sensory Deficits - Laboratory Results Result Diagrams: 02/18/18 23:35 02/18/18 23:35 - ECG ECG: Positive for: Interpreted By Sc ECG Rhythm: Positive for: Normal QRS, Normal ST Segment, Sinus Rhythm O2 Sat by Pulse Oximetry: 96 - Radiology X-Ray: Interpreted by Sc X-Ray Interpretation: No Acute Disease - Progress ED Course And Treament: Labs demonstrate acutely worse renal insufficiency and anemia. Appropriately anticoagulated. Cxr no acute findings. Disposition - Clinical Impression Clinical Impression: Cellulitis of left leg, Renal insufficiency, DVT, lower extremity, distal, chronic Discussed With Dr.: Franklyn Garcia Doctor Will See Patient In The: Hospital Counseled Patient/Family Regarding: Studies Performed, Diagnosis - Disposition Disposition Time: 00:30 Condition: FAIR Forms: [email or web address] ([place]ian) - Pt Status Changed To: Hospital Disposition Of: Inpatient - Admit Certification Admit to Inpatient:: After my assessment, the patient will require hospitalization for at least two midnights. This is because of the severity of symptoms shown, intensity of services needed, and/or the medical risk in this patient being treated as an outpatient. - POA Present On Arrival: Deep Vein Thrombosis / PE
[2018-02-18 23:36] LABS: BASO % 0.7 % (0.0-2.0); EOS # 0.5 K/uL (0.0-0.7); EOS % 6.5 % (0.0-4.0); HEMOGLOBIN 10.6 g/dL (12.0-16.0); LYMPH # 1.5 K/uL (1.0-4.3); LYMPH % 21.3 % (20.0-40.0); MEAN CELL VOLUME 104.2 fl (81.0-99.0); MEAN CORPUSCULAR HEMOGLOBIN 35.3 pg (27.0-31.0); MEAN CORPUSCULAR HGB CONC 33.9 g/dL (33.0-37.0); MEAN PLATELET VOLUME 7.7 fl (7.2-11.7); MONO # 0.8 K/uL (0.0-0.8); MONO % 11.9 % (0.0-10.0); NEUT # 4.1 K/uL (1.8-7.0); NEUT % 59.6 % (50.0-75.0); NRBC % 0.1 % (0.0-0.0); RED CELL DISTRIBUTION WIDTH 14.3 % (11.5-14.5); WHITE BLOOD COUNT 6.9 K/uL (4.8-10.8)
[2018-02-18 23:46] LABS: INR 3.2 (0.9-1.2); PARTIAL THROMBOPLASTIN TIME 33.7 Seconds (25.6-37.1); PROTHROMBIN TIME 36.2 Seconds (9.8-13.1)
[2018-02-18 23:53] LABS: ALB/GLOB RATIO 0.9 (1.0-2.1); ALBUMIN 3.7 g/dL (3.5-5.0); ALT/SGPT 63 U/L (9-52); AST/SGOT 48 U/L (14-36); BLOOD UREA NITROGEN 74 mg/dl (7-17); CALCIUM 9.5 mg/dL (8.4-10.2); GFR AFRICAN-AMERICAN 26; GFR NON-AFRICAN AMERICAN 21
[2018-02-19 00:02] LABS: B-TYPE NATRIURETIC PEPTIDE 209 pg/ml (0-900)
[2018-02-19] MEDS ORDERED: ceFAZolin 1 GM in Sodium Chloride 0.9% 100 ML IV STA (00:39)
--- NOTE | 2018-02-19 01:26 | US ---
EXAM: US Duplex Right Lower Extremity Veins CLINICAL HISTORY: 82 years old, female; Signs and symptoms; Swelling of limb; Lower extremity, bilateral; Additional info: Bilaterl leg swelling h/o dvt TECHNIQUE: Real-time duplex ultrasound scan of the right lower extremity veins integrating B-mode two-dimensional vascular structure, Doppler spectral analysis, color flow Doppler imaging and compression. COMPARISON: US - DUPLEX LOWER EXTRM VEIN BILAT 2017-08-12 13:01 FINDINGS: Deep veins: Normal color and spectral Doppler flow. Normal compressibility. No deep vein thrombosis. Superficial veins: No thrombosis. Soft tissues: No popliteal cyst. IMPRESSION: 1. No evidence of DVT within RIGHT lower extremity. EXAM: US Duplex Left Lower Extremity Veins CLINICAL HISTORY: 82 years old, female; Signs and symptoms; Swelling of limb; Lower extremity, bilateral; Additional info: Bilaterl leg swelling h/o dvt TECHNIQUE: Real-time duplex ultrasound scan of the left lower extremity veins integrating B-mode two-dimensional vascular structure, Doppler spectral analysis, color flow Doppler imaging and compression. COMPARISON: US - DUPLEX LOWER EXTRM VEIN BILAT 2017-08-12 13:01 FINDINGS: Deep veins: Incomplete compressibility of common femoral, superficial femoral, popliteal, posterior tibial veins. Partial flow on color or spectral Doppler imaging. Superficial veins: No thrombosis. Soft tissues: No popliteal cyst. IMPRESSION: 1. DVT within LEFT lower extremity, present on previous examination.
[2018-02-19 01:31] LABS: SQUAMOUS EPITHIAL 2 /hpf (0-5); URINE BACTERIA RARE (<OCC); URINE BILIRUBIN NEGATIVE (NEGATIVE); URINE BLOOD NEGATIVE (NEGATIVE); URINE CLARITY SLIGHTY-CLOUDY (Clear); URINE COLOR YELLOW (YELLOW); URINE GLUCOSE (UA) NEG (Normal); URINE LEUKOCYTE ESTERASE MOD Leu/uL (Negative); URINE PROTEIN NEGATIVE (NEGATIVE); URINE UROBILINOGEN 0.2-1.0 mg/dL (0.2-1.0)
[2018-02-19] MEDS: Sodium Chloride 0.9% 1,000 ML IV SCH ×2 (03:49→18:22)
[2018-02-19 05:36] LABS: ALB/GLOB RATIO 0.9 (1.0-2.1); ALBUMIN 3.5 g/dL (3.5-5.0); CALCIUM 9.2 mg/dL (8.4-10.2)
[2018-02-19 05:40] LABS: HEMOGLOBIN 9.8 g/dL (12.0-16.0); MEAN CELL VOLUME 103.2 fl (81.0-99.0); MEAN CORPUSCULAR HGB CONC 34.9 g/dL (33.0-37.0); RBC 2.72 Mil/uL (3.80-5.20); RED CELL DISTRIBUTION WIDTH 14.1 % (11.5-14.5); WHITE BLOOD COUNT 6.3 K/uL (4.8-10.8)
[2018-02-19] MEDS: Levothyroxine 50 MCG TAB PO SCH (05:42)
[2018-02-19 05:53] LABS: T4 6.83 ug/dl (5.5-11.0)
[2018-02-19 05:57] LABS: PARTIAL THROMBOPLASTIN TIME 35.8 Seconds (25.6-37.1); PROTHROMBIN TIME 34.5 Seconds (9.8-13.1)
--- NOTE | 2018-02-19 08:08 | RAD ---
HISTORY: weakness COMPARISON: Portable chest 07/28/2017. FINDINGS: LUNGS: No definite interval infiltrate identified bilaterally although volume loss of the right lung is again appreciated with prominent fibrosis noted at the inferolateral right lung zone and postoperative change at the right pulmonary apex. Right hilum remains slightly shifted cephalad. PLEURA: No significant pleural effusion identified, no pneumothorax apparent. CARDIOVASCULAR: Normal. OSSEOUS STRUCTURES: No significant abnormalities. VISUALIZED UPPER ABDOMEN: Normal. OTHER FINDINGS: None. IMPRESSION: Stable postoperative and post fibrotic volume loss right lung. No interval acute cardiopulmonary is appreciable.
[2018-02-19 08:48] LABS: OSMOLALITY,URINE 304 mosm/kg (300-1000)
[2018-02-19] MEDS: ceFAZolin 1 GM in Sodium Chloride 0.9% 100 ML IVPB SCH ×2 (09:50→21:27)
--- NOTE | 2018-02-19 11:42 | CP.PCM.CON ---
History of Present Illness - History of Present Illness History of Present Illness: 82yo woman w h/o DVT/PE and fluid retention reporting generalized weakness for 3 days, worsening since onset, decreased activity tolerance. Has had markedly decreased PO intake for about 2 weeks s/p accidentally burning mouth with hot oatmeal. Pt also reports increased swelling of bilateral legs despite taking her diuretics as prescribed. Also just noticed lesion on LEFT lower leg with redness, unknown onset and referred for ID eval for rx of cellultis LLE denies fever chills chest pain or SOB - Medical History PMH: Anemia, Atrial Fibrillation, Deep Vein Thrombosis, HTN, Hypercholesterolemia, Hypothyroidism, Malignancy (Lung cancer; multipe myeloma) , Pulmonary Embolism, Rheumatoid Arthritis Denies: HIV, Chronic Kidney Disease Other PMH: Above PMH obtained from previous visits/hospitalizations Review of Systems - Review of Systems All systems: reviewed and no additional remarkable complaints except - Constitutional Constitutional: As Per HPI, Anorexia, Malaise. absent: Fever - EENT Eyes: absent: As Per HPI, Blind Spots, Blurred Vision, Change in Vision, Decreased Night Vision, Diplopia, Discharge, Dry Eye, Exophthalmos, Floaters, Irritation, Itchy Eyes, Loss of Peripheral Vision, Pain, Photophobia, Requires Corrective Lenses, Sees Flashes, Spots in Vision, Tunnel Vision, Other Visual Disturbances, Loss of Vision, Other Ears: absent: As Per HPI, Decreased Hearing, Ear Discharge, Ear Pain, Tinnitus, Abnormal Hearing, Disequilibrium, Dizziness, Other Nose/Mouth/Throat: absent: As Per HPI, Epistaxis, Nasal Congestion, Nasal Discharge, Nasal Obstruction, Nasal Trauma, Nose Pain, Post Nasal Drip, Sinus Pain, Sinus Pressure, Bleeding Gums, Change in Voice, Dental Pain, Dry Mouth, Dysphagia, Halitosis, Hoarsness, Lip Swelling, Mouth Lesions, Mouth Pain, Odynophagia, Sore Throat, Throat Swelling, Tongue Swelling, Facial Pain, Neck Pain, Neck Mass, Other - Breasts Breasts: absent: As Per HPI, Change in Shape, Mass, Pain, Nipple Discharge, Nipple Inversion, Skin Changes, Swelling, Other - Cardiovascular Cardiovascular: As Per HPI - Respiratory Respiratory: As Per HPI. absent: Hemoptysis - Gastrointestinal Gastrointestinal: absent: As Per HPI, Abdominal Pain, Belching, Bloating, Change in Bowel Habits, Change in Stool Character, Coffee Ground Emesis, Constipation, Cramping, Diarrhea, Dyspepsia, Dysphagia, Early Satiety, Excessive Flatus, Fecal Incontinence, Heartburn, Hematemesis, Hematochezia, Loose Stools, Melena, Nausea, Odynophagia, Temesmus, Vomiting, Other - Genitourinary Genitourinary: absent: As Per HPI, Change in Urinary Stream, Difficulty Urinating, Dysuria, Flank Pain, Hematuria, Pyuria, Nocturia, Urinary Incontinence, Urinary Frequency, Urinary Hesitance, Urinary Urgency, Voiding Freq/Small Amts, Freq UTI, Hx Renal/Bladder Calculi, Hx /Renal Surgery, Bladder Distension, Other - Reproductive: Female Reproductive:Female: absent: As Per HPI, Amenorrhea, Amenorrhea/ Control, Currently Menstual, Cycle <21 Days, Cycle >35 Days, Cycle Variable, Menses 1-7 Days, Menses >/= 8 Days, Menses Variable, Cycle > 4 Weeks Between, No Menses for 6 Months, Heavy Menses, Light Menses, Normal Menses, Spotting Between Cycles , S/P Hysterectomy, Menopausal, Post Menopausal, Premenarche, Abnormal Vaginal Bleeding, Dysmenorrhea, Dyspareunia, Genital Lesions, Genital Pruritis, Pelvic Pain, Prolapse Symptoms, Sexual Dysfunction, Vaginal Discharge, Vaginal Dryness , Vaginal Odor, Vaginal Pruritis, Other - Menstruation Menstruation: absent: As Per HPI, Amenorrhea, Amenorrhea/ Control, Currently Menstual, Cycle <21 Days, Cycle >35 Days, Cycle Variable, Menses 1-7 Days, Menses >/= 8 Days, Menses Variable, Cycle > 4 Weeks Between, No Menses for 6 Months, Heavy Menses, Light Menses, Normal Menses, Spotting Between Cycles , S/P Hysterectomy, Menopausal, Post Menopausal, Premenarche, Abnormal Vaginal Bleeding, Dysmenorrhea, Other - Musculoskeletal Musculoskeletal: As Per HPI - Integumentary Integumentary: As Per HPI, Skin Pain, Wounds - Neurological Neurological: absent: As Per HPI, Abnormal Gait, Abnormal Hearing, Abnormal Movements, Abnormal Speech, Behavioral Changes, Burning Sensations, Confusion, Convulsions, Disequilibrium, Dizziness, Numbness, Focal Weakness, Frequent Falls , Headaches, Lack of Coordination, Loss of Vision, Memory Loss, Paresthesias, Radicular Pain, Restless Legs, Sensory Deficit, Syncope, Tingling, Tremor, Vertigo, Weakness, Other Visual Disturbances, Other - Psychiatric Psychiatric: absent: As Per HPI, Abnormal Sleep Pattern, Anhedonia, Anxiety, Auditory Hallucinations, Behavioral Changes, Change in Appetite, Change in Libido, Confusion, Depression, Difficulty Concentrating, Hallucinations, Homicidal Ideation, Hopelessness, Irritability, Memory Loss, Mood Swings, Panic Attacks, Paranoia, Suicidal Ideation, Visual Hallucinations, Tactile Hallucinations, Other - Endocrine Endocrine: absent: As Per HPI, Change in Body Appearance, Change in Libido, Cold Intolorance, Deepening of Voice, Excessive Sweating, Fatigue, Flushing, Heat Intolorance, Increase in Ring/Shoe/Hat Size, Palpitations, Polydipsia, Polyphagia, Polyuria, Other - Hematologic/Lymphatic Hematologic: absent: As Per HPI, Easy Bleeding, Easy Bruising, Lymphadenopathy, Other Past Patient History - Infectious Disease Hx of Infectious Diseases: None - Tetanus Immunizations Tetanus Immunization: Unknown - Past Medical History & Family History Past Medical History?: Yes - Past Social History Smoking Status: Never Smoked - CARDIAC Hx Cardiac Disorders: Yes Hx Atrial Fibrillation: Yes Hx Hypercholesterolemia: Yes Hx Hypertension: Yes - PULMONARY Hx Respiratory Disorders: Yes Hx Lung Cancer: Yes Hx Pulmonary Embolism: Yes - NEUROLOGICAL Hx Neurological Disorder: Yes Hx Syncope: Yes - HEENT Hx HEENT Problems: No - RENAL Hx Chronic Kidney Disease: No - ENDOCRINE/METABOLIC Hx Endocrine Disorders: Yes Hx Hypothyroidism: Yes - HEMATOLOGICAL/ONCOLOGICAL Hx Blood Disorders: Yes Hx Anemia: Yes Hx Cancer: Yes (breast ca with lumpectomy) Hx Human Immunodeficiency Virus (HIV): No - INTEGUMENTARY Hx Dermatological Problems: No - MUSCULOSKELETAL/RHEUMATOLOGICAL Hx Musculoskeletal Disorders: Yes Hx Falls: Yes Hx Rheumatoid Arthritis: Yes - GASTROINTESTINAL Hx Gastrointestinal Disorders: No - GENITOURINARY/GYNECOLOGICAL Hx Genitourinary Disorders: No - PSYCHIATRIC Hx Psychophysiologic Disorder: No Hx Substance Use: No - SURGICAL HISTORY Hx Surgeries: Yes Hx Hysterectomy: Yes Hx Parathyroidectomy: Yes Hx Thyroidectomy: Yes Other/Comment: Hx of Lumpectomy for Breast Ca, Pt did not have RT or Chemoterapy Rx, Pt has Hx of Vaginal Pessary. - ANESTHESIA Hx Anesthesia: Yes Hx Anesthesia Reactions: No Hx Malignant Hyperthermia: No Meds Allergies/Adverse Reactions: Allergies Allergy/AdvReac Type Severity Reaction Status Date / Time No Known Allergies Allergy Verified 02/18/18 21:49 - Medications Medications: Current Medications Acetaminophen (Tylenol 325mg Tab) 650 mg PO Q4 PRN PRN Reason: Pain, Mild (1-3) Sodium Chloride (Sodium Chloride 0.9%) 1,000 mls @ 80 mls/hr IV .[id number] [facility] Stop: 02/20/18 02:59 Last Admin: 02/19/18 03:49 Dose: 80 mls/hr Cefazolin Sodium 1 gm/ Sodium (Chloride) 100 mls @ 100 mls/hr IVPB Q12 REBECCA PRN Reason: Protocol Last Admin: 02/19/18 09:50 Dose: 100 mls/hr Levothyroxine Sodium (Synthroid) 50 mcg PO DAILY@0630 [facility] Last Admin: 02/19/18 05:42 Dose: 50 mcg Physical Exam - Constitutional Appears: Non-toxic, No Acute Distress, Chronically Ill - Head Exam Head Exam: ATRAUMATIC, NORMAL INSPECTION, NORMOCEPHALIC - Eye Exam Eye Exam: EOMI, PERRL. absent: Scleral icterus - ENT Exam ENT Exam: Mucous Membranes Dry, Normal External Ear Exam, Normal Oropharynx - Neck Exam Neck exam: Negative for: Lymphadenopathy - Respiratory Exam Respiratory Exam: Decreased Breath Sounds, Clear to Auscultation Bilateral - Cardiovascular Exam Cardiovascular Exam: REGULAR RHYTHM, +S1, +S2 - GI/Abdominal Exam GI & Abdominal Exam: Diminished Bowel Sounds, Soft. absent: Tenderness - Rectal Exam Rectal Exam: Deferred - Exam Exam: NORMAL INSPECTION - Extremities Exam Extremities exam: Positive for: pedal edema, pedal pulses present. Negative for : calf tenderness, tenderness - Back Exam Back exam: absent: CVA tenderness (L), CVA tenderness (R), paraspinal tenderness - Neurological Exam Neurological exam: Alert, CN II-XII Intact, Motor Sensory Deficit Additional comments: weakness bilaterally with muscle atrophy - Psychiatric Exam Psychiatric exam: Depressed, Flat Affect - Skin Skin Exam: Dry Results - Vital Signs Recent Vital Signs: Last Vital Signs Temp 99.8 F H 02/19/18 07:38 Pulse 83 02/19/18 09:00 Resp 18 02/19/18 07:38 BP 92/50 L 02/19/18 07:38 Pulse Ox 94 L 02/19/18 07:38 - Labs Result Diagrams: 02/19/18 04:20 02/19/18 04:20 Labs: Laboratory Results - last 24 hr 02/18/18 02/18/18 02/18/18 22:51 23:35 23:35 WBC 6.9 RBC 3.00 L Hgb 10.6 L Hct 31.2 L MCV 104.2 H D MCH 35.3 H MCHC 33.9 RDW 14.3 Plt Count 333 D MPV 7.7 Neut % (Auto) 59.6 Lymph % (Auto) 21.3 [place] % (Auto) 11.9 H Eos % (Auto) 6.5 H Baso % (Auto) 0.7 Neut # (Auto) 4.1 Lymph # (Auto) 1.5 [place] # (Auto) 0.8 Eos # (Auto) 0.5 Baso # (Auto) 0.0 PT INR APTT Sodium 134 Potassium 4.1 Chloride 88 L Carbon Dioxide 30 Anion Gap 20 BUN 74 H Creatinine 2.2 H Est GFR ( Amer) 26 Est GFR (Non-Af Amer) 21 POC Glucose (mg/dL) Random Glucose 110 H Lactic Acid Calcium 9.5 Phosphorus 3.5 Magnesium 2.2 Total Bilirubin 0.5 AST 48 H ALT 63 H Alkaline Phosphatase 89 Troponin I < 0.0120 NT-Pro-B Natriuret Pep 209 Total Protein 8.0 Albumin 3.7 Globulin 4.2 H Albumin/Globulin Ratio 0.9 L Triglycerides Cholesterol LDL Cholesterol Direct HDL Cholesterol Thyroxine (T4) TSH 3rd Generation Urine Color Yellow Urine Clarity Slighty-cloudy Urine pH 5.0 Ur Specific Brow[place] 1.012 Urine Protein Negative Urine Glucose (UA) Neg Urine Ketones Negative Urine Blood Negative Urine Nitrate Negative Urine Bilirubin Negative Urine Urobilinogen 0.2-1.0 Ur Leukocyte Esterase Mod Urine RBC (Auto) 5 H Urine Microscopic WBC 11 H Ur Squamous Epith Cells 2 Urine Bacteria Rare Urine Osmolality Ur Random Creatinine Ur Random Sodium Ur Random Potassium 02/18/18 02/18/18 02/19/18 23:35 23:35 00:40 WBC RBC Hgb Hct MCV MCH MCHC RDW Plt Count MPV Neut % (Auto) Lymph % (Auto) [place] % (Auto) Eos % (Auto) Baso % (Auto) Neut # (Auto) Lymph # (Auto) [place] # (Auto) Eos # (Auto) Baso # (Auto) PT 36.2 H INR 3.2 H APTT 33.7 Sodium Potassium Chloride Carbon Dioxide Anion Gap BUN Creatinine Est GFR ( Amer) Est GFR (Non-Af Amer) POC Glucose (mg/dL) 107 Random Glucose Lactic Acid 1.1 Calcium Phosphorus Magnesium Total Bilirubin AST ALT Alkaline Phosphatase Troponin I NT-Pro-B Natriuret Pep Total Protein Albumin Globulin Albumin/Globulin Ratio Triglycerides Cholesterol LDL Cholesterol Direct HDL Cholesterol Thyroxine (T4) TSH 3rd Generation Urine Color Urine Clarity Urine pH Ur Specific Brow[place] Urine Protein Urine Glucose (UA) Urine Ketones Urine Blood Urine Nitrate Urine Bilirubin Urine Urobilinogen Ur Leukocyte Esterase Urine RBC (Auto) Urine Microscopic WBC Ur Squamous Epith Cells Urine Bacteria Urine Osmolality Ur Random Creatinine Ur Random Sodium Ur Random Potassium 02/19/18 02/19/18 02/19/18 04:20 04:20 04:20 WBC 6.3 RBC 2.72 L Hgb 9.8 L Hct 28.0 L MCV 103.2 H MCH 36.0 H MCHC 34.9 RDW 14.1 Plt Count 341 MPV Neut % (Auto) Lymph % (Auto) [place] % (Auto) Eos % (Auto) Baso % (Auto) Neut # (Auto) Lymph # (Auto) [place] # (Auto) Eos # (Auto) Baso # (Auto) PT 34.5 H INR 3.0 H APTT 35.8 Sodium 135 Potassium 3.5 L Chloride 90 L Carbon Dioxide 33 H Anion Gap 16 BUN 68 H Creatinine 2.1 H Est GFR ( Amer) 27 Est GFR (Non-Af Amer) 23 POC Glucose (mg/dL) Random Glucose 99 Lactic Acid Calcium 9.2 Phosphorus 3.7 Magnesium Total Bilirubin 0.4 AST 51 H ALT 61 H Alkaline Phosphatase 85 Troponin I NT-Pro-B Natriuret Pep Total Protein 7.6 Albumin 3.5 Globulin 4.1 H Albumin/Globulin Ratio 0.9 L Triglycerides 108 Cholesterol 180 LDL Cholesterol Direct 116 HDL Cholesterol 23 L Thyroxine (T4) 6.83 TSH 3rd Generation 24.10 H Urine Color Urine Clarity Urine pH Ur Specific Brow[place] Urine Protein Urine Glucose (UA) Urine Ketones Urine Blood Urine Nitrate Urine Bilirubin Urine Urobilinogen Ur Leukocyte Esterase Urine RBC (Auto) Urine Microscopic WBC Ur Squamous Epith Cells Urine Bacteria Urine Osmolality Ur Random Creatinine Ur Random Sodium Ur Random Potassium 02/19/18 02/19/18 02/19/18 06:00 08:00 08:00 WBC RBC Hgb Hct MCV MCH MCHC RDW Plt Count MPV Neut % (Auto) Lymph % (Auto) [place] % (Auto) Eos % (Auto) Baso % (Auto) Neut # (Auto) Lymph # (Auto) [place] # (Auto) Eos # (Auto) Baso # (Auto) PT INR APTT Sodium Potassium Chloride Carbon Dioxide Anion Gap BUN Creatinine Est GFR ( Amer) Est GFR (Non-Af Amer) POC Glucose (mg/dL) Random Glucose Lactic Acid Calcium Phosphorus Magnesium Total Bilirubin AST ALT Alkaline Phosphatase Troponin I < 0.0120 NT-Pro-B Natriuret Pep Total Protein Albumin Globulin Albumin/Globulin Ratio Triglycerides Cholesterol LDL Cholesterol Direct HDL Cholesterol Thyroxine (T4) TSH 3rd Generation Urine Color Urine Clarity Urine pH Ur Specific Brow[place] Urine Protein Urine Glucose (UA) Urine Ketones Urine Blood Urine Nitrate Urine Bilirubin Urine Urobilinogen Ur Leukocyte Esterase Urine RBC (Auto) Urine Microscopic WBC Ur Squamous Epith Cells Urine Bacteria Urine Osmolality 304 Ur Random Creatinine 69.8 Ur Random Sodium < 5 Ur Random Potassium 22.4 Assessment & Plan (1) Cellulitis of left leg Status: Acute (2) DVT, lower extremity, distal, chronic Status: Acute (3) Renal insufficiency Status: Acute (4) Dehydration Status: Acute - Assessment and Plan (Free Text) Assessment: await cultures cont iv antibiotics , wound care Plan: Hx of myeloma , anemia, renal insuff s/p lobectomy for lung ca
--- NOTE | 2018-02-19 12:48 | CARD ---
APPROVED REPORT EXAM: Two-dimensional and M-mode echocardiogram with Doppler and color Doppler. Other Information Quality : AverageRhythm : NSR INDICATION Peripheral Edema LV Function:SystolicDiastolic 2D DIMENSIONS IVSd1.35 (0.7-1.1cm)LVDd3.35 (3.9-5.9cm) LVOT Diameter1.88 (1.8-2.4cm)PWd1.00 (0.7-1.1cm) IVSs0.97 (0.8-1.2cm)LVDs2.19 (2.5-4.0cm) FS (%) 34.8 %PWs1.29 (0.8-1.2cm) M-Mode DIMENSIONS Left Atrium (MM)2.82 (2.5-4.0cm)IVSd0.97 (0.7-1.1cm) Aortic Root2.74 (2.2-3.7cm)LVDd4.56 (4.0-5.6cm) Aortic Cusp Exc.1.65 (1.5-2.0cm)PWd0.88 (0.7-1.1cm) IVSs1.32 cmFS (%) 57 % LVDs1.97 (2.0-3.8cm)PWs1.53 cm Mitral Valve MV E Rxlbbtch88.3cm/sMV DECEL [id number] A Comuworo71.5cm/s MV QLE14kjZ/A ratio0.7MVA (PHT)2.47cm2 TDI Lateral E' Peak V15.32cm/sMedial E' Peak V10.84cm/sE/Lateral E'2.9 E/Medial E'4.1 Tricuspid Valve TR Peak [id number]/sRAP [id number] Peak Gr.26mmHg [id number] LEFT VENTRICLE The left ventricle is normal size. There is normal left ventricular wall thickness. Left ventricle systolic function is normal. The Ejection Fraction is 65-70%. Septal motion was mildly paradoxical due to RV predominance Otherwise normal regional wall motion Transmitral Doppler flow pattern is Grade I-abnormal relaxation pattern. RIGHT VENTRICLE The right ventricle is mildly dilated. There is normal right ventricular wall thickness. The right ventricular systolic function is normal. ATRIA The left atrium size is normal. The right atrium size is normal. AORTIC VALVE The aortic valve is normal in structure. No aortic regurgitation is present. There is no aortic valvular stenosis. MITRAL VALVE The mitral valve is normal in structure. There is no evidence of mitral valve prolapse. There is no mitral valve stenosis. There is no mitral valve regurgitation noted. TRICUSPID VALVE The tricuspid valve is normal in structure. There is mild tricuspid regurgitation. Right ventricular systolic pressure is estimated at 37 mmHg. There is mild pulmonary hypertension. PULMONIC VALVE The pulmonary valve is normal in structure. There is no pulmonic valvular regurgitation. GREAT VESSELS The aortic root is normal in size. The IVC is normal in size and collapses >50% with inspiration. PERICARDIAL EFFUSION The pericardium appears normal. <Conclusion> The left ventricle is normal size. There is normal left ventricular wall thickness. Septal motion was mildly paradoxical due to RV predominance Otherwise normal regional wall motion Left ventricle systolic function is normal. The Ejection Fraction is 65-70%. Transmitral Doppler flow pattern is Grade I-abnormal relaxation pattern. The right ventricle is mildly dilated.
--- NOTE | 2018-02-19 13:02 | US ---
PROCEDURE: Ultrasound of the Kidneys HISTORY: Acute Renal Insufficiency COMPARISON: None available. TECHNIQUE: Sonogram of the kidneys. FINDINGS: RIGHT KIDNEY: Measures: 4.3 x 4.5 x 9.5 cm. Normal in size, contour and echogenicity. No stone, solid mass lesion or hydronephrosis visualized. LEFT KIDNEY: Measures: 4.4 x 4.9 x 9.1 cm. Normal in size, contour and echogenicity. No stone, solid mass lesion or hydronephrosis visualized. OTHER FINDINGS: None. IMPRESSION: Unremarkable renal sonogram.
--- NOTE | 2018-02-19 13:48 | CARD ---
APPROVED REPORT EKG Measurement Heart [id number] ID [id number] <Conclusion> Sinus rhythm Otherwise normal ECG
--- NOTE | 2018-02-19 13:49 | CP.PCM.HP ---
History of Present Illness - History of Present Illness History of Present Illness: CC: Weakness. 82 y/o F, Multiple chronic medical condition, including Lung Ca ( Multiple Myeloma), Lumpectomy for Breast Ca, Hx DVT, PE, Renal insufficiency. Pt was brought to [facility] via EMS to be evaluated for gradually increased weakness, onset 3 days [employer] associated to decreased po intake 2nd to accidentally burning mouth 2 weeks ago with a hot meal. Worsening symptoms: High BUN, Creatinine AST and ALT. Swelling bilateral L/E with cellulites and pain in her LLE. Aggravated factor: Decreased activity tolerance. Pt denied: Fever, chills, N/V/D, abdominal pain, syncope, LOC, SOB, cough, CP, palpitations, sick contact, recent travel out of [facility]. CXR showed: stable postoperative and post fibrotic volume loss R lung. EKG: Sinus Rhythm. Ext U-S: DVT within LLE, present on previous examination. Present on Admission - Present on Admission Any Indicators Present on Admission: Yes History of DVT/PE: Yes Review of Systems - Constitutional Constitutional: Weakness - EENT Eyes: Other (negative) Ears: Other (negative) Nose/Mouth/Throat: Other (negative) - Cardiovascular Cardiovascular: Leg Edema, Lightheadedness - Respiratory Respiratory: Other (negative) - Gastrointestinal Gastrointestinal: Other (negative) - Genitourinary Genitourinary: Other (negative) - Musculoskeletal Musculoskeletal: Arthralgias, Other (left leg pain) - Integumentary Integumentary: Erythema - Neurological Neurological: Dizziness - Psychiatric Psychiatric: Other (negative) - Endocrine Endocrine: Other (negative) - Hematologic/Lymphatic Hematologic: Other (negative) Past Patient History - Infectious Disease Hx of Infectious Diseases: None - Tetanus Immunizations Tetanus Immunization: Unknown - Past Medical History & Family History Past Medical History?: Yes Pertinent Family History: Unknown - Past Social History Smoking Status: Never Smoked Alcohol: None Drugs: Denies Home Situation {Lives}: With Family - CARDIAC Hx Cardiac Disorders: Yes Hx Atrial Fibrillation: Yes Hx Hypercholesterolemia: Yes Hx Hypertension: Yes - PULMONARY Hx Respiratory Disorders: Yes Hx Lung Cancer: Yes Hx Pulmonary Embolism: Yes - NEUROLOGICAL Hx Neurological Disorder: Yes Hx Syncope: Yes - HEENT Hx HEENT Problems: No - RENAL Hx Chronic Kidney Disease: No - ENDOCRINE/METABOLIC Hx Endocrine Disorders: Yes Hx Hypothyroidism: Yes - HEMATOLOGICAL/ONCOLOGICAL Hx Blood Disorders: Yes Hx Anemia: Yes Hx Cancer: Yes (breast ca with lumpectomy) Hx Human Immunodeficiency Virus (HIV): No - INTEGUMENTARY Hx Dermatological Problems: No - MUSCULOSKELETAL/RHEUMATOLOGICAL Hx Musculoskeletal Disorders: Yes Hx Falls: Yes Hx Rheumatoid Arthritis: Yes - GASTROINTESTINAL Hx Gastrointestinal Disorders: No - GENITOURINARY/GYNECOLOGICAL Hx Genitourinary Disorders: No - PSYCHIATRIC Hx Psychophysiologic Disorder: No Hx Substance Use: No - SURGICAL HISTORY Hx Surgeries: Yes Hx Hysterectomy: Yes Hx Parathyroidectomy: Yes Hx Thyroidectomy: Yes Other/Comment: Hx of Lumpectomy for Breast Ca, Pt did not have RT or Chemoterapy Rx, Pt has Hx of Vaginal Pessary. - ANESTHESIA Hx Anesthesia: Yes Hx Anesthesia Reactions: No Hx Malignant Hyperthermia: No Meds Allergies/Adverse Reactions: Allergies Allergy/AdvReac Type Severity Reaction Status Date / Time No Known Allergies Allergy Verified 02/18/18 21:49 Physical Exam - Constitutional Appears: Chronically Ill - Head Exam Head Exam: NORMAL INSPECTION - Eye Exam Eye Exam: PERRL - ENT Exam ENT Exam: Normal Exam - Neck Exam Neck exam: Positive for: Normal Inspection - Respiratory Exam Respiratory Exam: NORMAL BREATHING PATTERN - Cardiovascular Exam Cardiovascular Exam: REGULAR RHYTHM - GI/Abdominal Exam GI & Abdominal Exam: Normal Bowel Sounds, Soft - Extremities Exam Additional comments: Edema BLE , erythema L leg - Back Exam Back exam: NORMAL INSPECTION - Neurological Exam Neurological exam: Alert, CN II-XII Intact, Oriented x3 Additional comments: Weaknesses - Skin Skin Exam: Warm Results - Vital Signs Recent Vital Signs: Last Vital Signs Temp 99.5 F 02/19/18 12:20 Pulse 77 02/19/18 12:20 Resp 18 02/19/18 12:20 BP 97/56 L 02/19/18 12:20 Pulse Ox 94 L 02/19/18 12:20 reviewed Leidy - Labs Result Diagrams: 02/19/18 04:20 02/19/18 04:20 Labs: Laboratory Results - last 24 hr 02/18/18 02/18/18 02/18/18 22:51 23:35 23:35 WBC 6.9 RBC 3.00 L Hgb 10.6 L Hct 31.2 L MCV 104.2 H D MCH 35.3 H MCHC 33.9 RDW 14.3 Plt Count 333 D MPV 7.7 Neut % (Auto) 59.6 Lymph % (Auto) 21.3 Simpson % (Auto) 11.9 H Eos % (Auto) 6.5 H Baso % (Auto) 0.7 Neut # (Auto) 4.1 Lymph # (Auto) 1.5 Simpson # (Auto) 0.8 Eos # (Auto) 0.5 Baso # (Auto) 0.0 PT INR APTT Sodium 134 Potassium 4.1 Chloride 88 L Carbon Dioxide 30 Anion Gap 20 BUN 74 H Creatinine 2.2 H Est GFR ( Amer) 26 Est GFR (Non-Af Amer) 21 POC Glucose (mg/dL) Random Glucose 110 H Lactic Acid Calcium 9.5 Phosphorus 3.5 Magnesium 2.2 Total Bilirubin 0.5 AST 48 H ALT 63 H Alkaline Phosphatase 89 Troponin I < 0.0120 NT-Pro-B Natriuret Pep 209 Total Protein 8.0 Albumin 3.7 Globulin 4.2 H Albumin/Globulin Ratio 0.9 L Triglycerides Cholesterol LDL Cholesterol Direct HDL Cholesterol Thyroxine (T4) TSH 3rd Generation Urine Color Yellow Urine Clarity Slighty-cloudy Urine pH 5.0 Ur Specific [place] 1.012 Urine Protein Negative Urine Glucose (UA) Neg Urine Ketones Negative Urine Blood Negative Urine Nitrate Negative Urine Bilirubin Negative Urine Urobilinogen 0.2-1.0 Ur Leukocyte Esterase Mod Urine RBC (Auto) 5 H Urine Microscopic WBC 11 H Ur Squamous Epith Cells 2 Urine Bacteria Rare Urine Osmolality Ur Random Creatinine Ur Random Sodium Ur Random Potassium 02/18/18 02/18/18 02/19/18 23:35 23:35 00:40 WBC RBC Hgb Hct MCV MCH MCHC RDW Plt Count MPV Neut % (Auto) Lymph % (Auto) [place] % (Auto) Eos % (Auto) Baso % (Auto) Neut # (Auto) Lymph # (Auto) Simpson # (Auto) Eos # (Auto) Baso # (Auto) PT 36.2 H INR 3.2 H APTT 33.7 Sodium Potassium Chloride Carbon Dioxide Anion Gap BUN Creatinine Est GFR ( Amer) Est GFR (Non-Af Amer) POC Glucose (mg/dL) 107 Random Glucose Lactic Acid 1.1 Calcium Phosphorus Magnesium Total Bilirubin AST ALT Alkaline Phosphatase Troponin I NT-Pro-B Natriuret Pep Total Protein Albumin Globulin Albumin/Globulin Ratio Triglycerides Cholesterol LDL Cholesterol Direct HDL Cholesterol Thyroxine (T4) TSH 3rd Generation Urine Color Urine Clarity Urine pH Ur Specific [place] Urine Protein Urine Glucose (UA) Urine Ketones Urine Blood Urine Nitrate Urine Bilirubin Urine Urobilinogen Ur Leukocyte Esterase Urine RBC (Auto) Urine Microscopic WBC Ur Squamous Epith Cells Urine Bacteria Urine Osmolality Ur Random Creatinine Ur Random Sodium Ur Random Potassium 02/19/18 02/19/18 02/19/18 04:20 04:20 04:20 WBC 6.3 RBC 2.72 L Hgb 9.8 L Hct 28.0 L MCV 103.2 H MCH 36.0 H MCHC 34.9 RDW 14.1 Plt Count 341 MPV Neut % (Auto) Lymph % (Auto) [place] % (Auto) Eos % (Auto) Baso % (Auto) Neut # (Auto) Lymph # (Auto) Simpson # (Auto) Eos # (Auto) Baso # (Auto) PT 34.5 H INR 3.0 H APTT 35.8 Sodium 135 Potassium 3.5 L Chloride 90 L Carbon Dioxide 33 H Anion Gap 16 BUN 68 H Creatinine 2.1 H Est GFR ( Amer) 27 Est GFR (Non-Af Amer) 23 POC Glucose (mg/dL) Random Glucose 99 Lactic Acid Calcium 9.2 Phosphorus 3.7 Magnesium Total Bilirubin 0.4 AST 51 H ALT 61 H Alkaline Phosphatase 85 Troponin I NT-Pro-B Natriuret Pep Total Protein 7.6 Albumin 3.5 Globulin 4.1 H Albumin/Globulin Ratio 0.9 L Triglycerides 108 Cholesterol 180 LDL Cholesterol Direct 116 HDL Cholesterol 23 L Thyroxine (T4) 6.83 TSH 3rd Generation 24.10 H Urine Color Urine Clarity Urine pH Ur Specific [place] Urine Protein Urine Glucose (UA) Urine Ketones Urine Blood Urine Nitrate Urine Bilirubin Urine Urobilinogen Ur Leukocyte Esterase Urine RBC (Auto) Urine Microscopic WBC Ur Squamous Epith Cells Urine Bacteria Urine Osmolality Ur Random Creatinine Ur Random Sodium Ur Random Potassium 02/19/18 02/19/18 02/19/18 06:00 08:00 08:00 WBC RBC Hgb Hct MCV MCH MCHC RDW Plt Count MPV Neut % (Auto) Lymph % (Auto) Simpson % (Auto) Eos % (Auto) Baso % (Auto) Neut # (Auto) Lymph # (Auto) Simpson # (Auto) Eos # (Auto) Baso # (Auto) PT INR APTT Sodium Potassium Chloride Carbon Dioxide Anion Gap BUN Creatinine Est GFR ( Amer) Est GFR (Non-Af Amer) POC Glucose (mg/dL) Random Glucose Lactic Acid Calcium Phosphorus Magnesium Total Bilirubin AST ALT Alkaline Phosphatase Troponin I < 0.0120 NT-Pro-B Natriuret Pep Total Protein Albumin Globulin Albumin/Globulin Ratio Triglycerides Cholesterol LDL Cholesterol Direct HDL Cholesterol Thyroxine (T4) TSH 3rd Generation Urine Color Urine Clarity Urine pH Ur Specific [place] Urine Protein Urine Glucose (UA) Urine Ketones Urine Blood Urine Nitrate Urine Bilirubin Urine Urobilinogen Ur Leukocyte Esterase Urine RBC (Auto) Urine Microscopic WBC Ur Squamous Epith Cells Urine Bacteria Urine Osmolality 304 Ur Random Creatinine 69.8 Ur Random Sodium < 5 Ur Random Potassium 22.4 Reviewed J.P. - EKG Data EKG comments: reviewed J.P. - Imaging and Cardiology Chest x-ray Status: Report reviewed by me (Leidy) Venous US Status: Report reviewed by me (Leidy) Assessment & Plan (1) VALERI (acute kidney injury) Status: Acute (2) Dehydration Status: Acute Priority: High (3) Multiple myeloma Status: Chronic (4) Hx of cancer of lung Status: Acute (5) DVT, lower extremity, distal, chronic Status: Chronic Priority: High (6) Hx pulmonary embolism Status: Chronic (7) Cellulitis of left lower extremity Status: Acute (8) Decubitus ulcer of sacral region, stage 1 Status: Resolved (9) Hypothyroidism Status: Chronic Priority: Medium - Assessment and Plan (Free Text) Plan: F/U Echo, Renal U-S. Continue Sodium Chl IV, Cefazolin, Synthroid and rest of Tx. OT PT eval, Blood C-S, U C-S, ID consult appreciated. Nephrology consult. - Date & Time Date: 02/19/18
--- NOTE | 2018-02-19 14:15 | CP.PCM.CON ---
History of Present Illness - History of Present Illness History of Present Illness: Pt is an 82 y/0 female with multiple medical problems which include Chronic Lt leg DVT, Pulmonary embolism, Lung Ca,? Multiple Myeloma, A. fib & Hypothyroidism. Pt was was brought to ER because of proressive generalized weakness & swelling og legs & was found to have cellulitis of Lt LE & elevated BUN/Creat for which renal consult is requested. Pt reports few previous admissions for dehydration. Denies chronic renal problem No FHx/o kidney dis. Review of Systems - Constitutional Constitutional: Weakness - Cardiovascular Cardiovascular: Edema Additional comments: denied SOB - Gastrointestinal Additional comments: No N&V or diarrhea - Genitourinary Additional comments: no urinary symptoms Past Patient History - Infectious Disease Hx of Infectious Diseases: None - Tetanus Immunizations Tetanus Immunization: Unknown - Past Medical History & Family History Past Medical History?: Yes - Past Social History Smoking Status: Never Smoked - CARDIAC Hx Cardiac Disorders: Yes Hx Atrial Fibrillation: Yes Hx Hypercholesterolemia: Yes Hx Hypertension: Yes - PULMONARY Hx Respiratory Disorders: Yes Hx Lung Cancer: Yes Hx Pulmonary Embolism: Yes - NEUROLOGICAL Hx Neurological Disorder: Yes Hx Syncope: Yes - HEENT Hx HEENT Problems: No - RENAL Hx Chronic Kidney Disease: No - ENDOCRINE/METABOLIC Hx Endocrine Disorders: Yes Hx Hypothyroidism: Yes - HEMATOLOGICAL/ONCOLOGICAL Hx Blood Disorders: Yes Hx Anemia: Yes Hx Cancer: Yes (breast ca with lumpectomy) Hx Human Immunodeficiency Virus (HIV): No - INTEGUMENTARY Hx Dermatological Problems: No - MUSCULOSKELETAL/RHEUMATOLOGICAL Hx Musculoskeletal Disorders: Yes Hx Falls: Yes Hx Rheumatoid Arthritis: Yes - GASTROINTESTINAL Hx Gastrointestinal Disorders: No - GENITOURINARY/GYNECOLOGICAL Hx Genitourinary Disorders: No - PSYCHIATRIC Hx Psychophysiologic Disorder: No Hx Substance Use: No - SURGICAL HISTORY Hx Surgeries: Yes Hx Hysterectomy: Yes Hx Parathyroidectomy: Yes Hx Thyroidectomy: Yes Other/Comment: Hx of Lumpectomy for Breast Ca, Pt did not have RT or Chemoterapy Rx, Pt has Hx of Vaginal Pessary. - ANESTHESIA Hx Anesthesia: Yes Hx Anesthesia Reactions: No Hx Malignant Hyperthermia: No Meds Allergies/Adverse Reactions: Allergies Allergy/AdvReac Type Severity Reaction Status Date / Time No Known Allergies Allergy Verified 02/18/18 21:49 - Medications Medications: Current Medications Acetaminophen (Tylenol 325mg Tab) 650 mg PO Q4 PRN PRN Reason: Pain, Mild (1-3) Sodium Chloride (Sodium Chloride 0.9%) 1,000 mls @ 80 mls/hr IV .[id number] [facility] Stop: 02/20/18 02:59 Last Admin: 02/19/18 03:49 Dose: 80 mls/hr Cefazolin Sodium 1 gm/ Sodium (Chloride) 100 mls @ 100 mls/hr IVPB Q12 [facility] PRN Reason: Protocol Last Admin: 02/19/18 09:50 Dose: 100 mls/hr Levothyroxine Sodium (Synthroid) 50 mcg PO DAILY@0630 [facility] Last Admin: 02/19/18 05:42 Dose: 50 mcg Physical Exam - Constitutional Appears: Cachectic Additional comments: Appears weak - Head Exam Head Exam: ATRAUMATIC, NORMOCEPHALIC - Eye Exam Additional comments: No icterus - ENT Exam ENT Exam: Mucous Membranes Dry - Neck Exam Neck exam: Positive for: Normal Inspection - Respiratory Exam Respiratory Exam: NORMAL BREATHING PATTERN Additional comments: No wheezes - Cardiovascular Exam Cardiovascular Exam: REGULAR RHYTHM, +S1, +S2 - GI/Abdominal Exam GI & Abdominal Exam: Soft Additional comments: No tenderness No CVA tenderness - Extremities Exam Additional comments: 2-3+ bipedal edema.Superficial dry skin break over lt lower leg. - Neurological Exam Neurological exam: Alert Additional comments: No focal deficits Results - Vital Signs Recent Vital Signs: Last Vital Signs Temp 99.5 F 02/19/18 12:20 Pulse 77 02/19/18 12:20 Resp 18 02/19/18 12:20 BP 97/56 L 02/19/18 12:20 Pulse Ox 94 L 02/19/18 12:20 - Labs Result Diagrams: 02/19/18 04:20 02/19/18 04:20 Labs: Laboratory Results - last 24 hr 02/18/18 02/18/18 02/18/18 22:51 23:35 23:35 WBC 6.9 RBC 3.00 L Hgb 10.6 L Hct 31.2 L MCV 104.2 H D MCH 35.3 H MCHC 33.9 RDW 14.3 Plt Count 333 D MPV 7.7 Neut % (Auto) 59.6 Lymph % (Auto) 21.3 [place] % (Auto) 11.9 H Eos % (Auto) 6.5 H Baso % (Auto) 0.7 Neut # (Auto) 4.1 Lymph # (Auto) 1.5 [place] # (Auto) 0.8 Eos # (Auto) 0.5 Baso # (Auto) 0.0 PT INR APTT Sodium 134 Potassium 4.1 Chloride 88 L Carbon Dioxide 30 Anion Gap 20 BUN 74 H Creatinine 2.2 H Est GFR ( Amer) 26 Est GFR (Non-Af Amer) 21 POC Glucose (mg/dL) Random Glucose 110 H Lactic Acid Calcium 9.5 Phosphorus 3.5 Magnesium 2.2 Total Bilirubin 0.5 AST 48 H ALT 63 H Alkaline Phosphatase 89 Troponin I < 0.0120 NT-Pro-B Natriuret Pep 209 Total Protein 8.0 Albumin 3.7 Globulin 4.2 H Albumin/Globulin Ratio 0.9 L Triglycerides Cholesterol LDL Cholesterol Direct HDL Cholesterol Thyroxine (T4) TSH 3rd Generation Urine Color Yellow Urine Clarity Slighty-cloudy Urine pH 5.0 Ur Specific [place] 1.012 Urine Protein Negative Urine Glucose (UA) Neg Urine Ketones Negative Urine Blood Negative Urine Nitrate Negative Urine Bilirubin Negative Urine Urobilinogen 0.2-1.0 Ur Leukocyte Esterase Mod Urine RBC (Auto) 5 H Urine Microscopic WBC 11 H Ur Squamous Epith Cells 2 Urine Bacteria Rare Urine Osmolality Ur Random Creatinine Ur Random Sodium Ur Random Potassium 02/18/18 02/18/18 02/19/18 23:35 23:35 00:40 WBC RBC Hgb Hct MCV MCH MCHC RDW Plt Count MPV Neut % (Auto) Lymph % (Auto) [place] % (Auto) Eos % (Auto) Baso % (Auto) Neut # (Auto) Lymph # (Auto) [place] # (Auto) Eos # (Auto) Baso # (Auto) PT 36.2 H INR 3.2 H APTT 33.7 Sodium Potassium Chloride Carbon Dioxide Anion Gap BUN Creatinine Est GFR ( Amer) Est GFR (Non-Af Amer) POC Glucose (mg/dL) 107 Random Glucose Lactic Acid 1.1 Calcium Phosphorus Magnesium Total Bilirubin AST ALT Alkaline Phosphatase Troponin I NT-Pro-B Natriuret Pep Total Protein Albumin Globulin Albumin/Globulin Ratio Triglycerides Cholesterol LDL Cholesterol Direct HDL Cholesterol Thyroxine (T4) TSH 3rd Generation Urine Color Urine Clarity Urine pH Ur Specific [place] Urine Protein Urine Glucose (UA) Urine Ketones Urine Blood Urine Nitrate Urine Bilirubin Urine Urobilinogen Ur Leukocyte Esterase Urine RBC (Auto) Urine Microscopic WBC Ur Squamous Epith Cells Urine Bacteria Urine Osmolality Ur Random Creatinine Ur Random Sodium Ur Random Potassium 02/19/18 02/19/18 02/19/18 04:20 04:20 04:20 WBC 6.3 RBC 2.72 L Hgb 9.8 L Hct 28.0 L MCV 103.2 H MCH 36.0 H MCHC 34.9 RDW 14.1 Plt Count 341 MPV Neut % (Auto) Lymph % (Auto) [place] % (Auto) Eos % (Auto) Baso % (Auto) Neut # (Auto) Lymph # (Auto) [place] # (Auto) Eos # (Auto) Baso # (Auto) PT 34.5 H INR 3.0 H APTT 35.8 Sodium 135 Potassium 3.5 L Chloride 90 L Carbon Dioxide 33 H Anion Gap 16 BUN 68 H Creatinine 2.1 H Est GFR ( Amer) 27 Est GFR (Non-Af Amer) 23 POC Glucose (mg/dL) Random Glucose 99 Lactic Acid Calcium 9.2 Phosphorus 3.7 Magnesium Total Bilirubin 0.4 AST 51 H ALT 61 H Alkaline Phosphatase 85 Troponin I NT-Pro-B Natriuret Pep Total Protein 7.6 Albumin 3.5 Globulin 4.1 H Albumin/Globulin Ratio 0.9 L Triglycerides 108 Cholesterol 180 LDL Cholesterol Direct 116 HDL Cholesterol 23 L Thyroxine (T4) 6.83 TSH 3rd Generation 24.10 H Urine Color Urine Clarity Urine pH Ur Specific [place] Urine Protein Urine Glucose (UA) Urine Ketones Urine Blood Urine Nitrate Urine Bilirubin Urine Urobilinogen Ur Leukocyte Esterase Urine RBC (Auto) Urine Microscopic WBC Ur Squamous Epith Cells Urine Bacteria Urine Osmolality Ur Random Creatinine Ur Random Sodium Ur Random Potassium 02/19/18 02/19/18 02/19/18 06:00 08:00 08:00 WBC RBC Hgb Hct MCV MCH MCHC RDW Plt Count MPV Neut % (Auto) Lymph % (Auto) [place] % (Auto) Eos % (Auto) Baso % (Auto) Neut # (Auto) Lymph # (Auto) [place] # (Auto) Eos # (Auto) Baso # (Auto) PT INR APTT Sodium Potassium Chloride Carbon Dioxide Anion Gap BUN Creatinine Est GFR ( Amer) Est GFR (Non-Af Amer) POC Glucose (mg/dL) Random Glucose Lactic Acid Calcium Phosphorus Magnesium Total Bilirubin AST ALT Alkaline Phosphatase Troponin I < 0.0120 NT-Pro-B Natriuret Pep Total Protein Albumin Globulin Albumin/Globulin Ratio Triglycerides Cholesterol LDL Cholesterol Direct HDL Cholesterol Thyroxine (T4) TSH 3rd Generation Urine Color Urine Clarity Urine pH Ur Specific [place] Urine Protein Urine Glucose (UA) Urine Ketones Urine Blood Urine Nitrate Urine Bilirubin Urine Urobilinogen Ur Leukocyte Esterase Urine RBC (Auto) Urine Microscopic WBC Ur Squamous Epith Cells Urine Bacteria Urine Osmolality 304 Ur Random Creatinine 69.8 Ur Random Sodium < 5 Ur Random Potassium 22.4 Assessment & Plan - Assessment and Plan (Free Text) Assessment: Azotemia secondary to dehydration Urine sodium was < 5 suggesting dehydration.Renal US does not show any evidence of chronic kidney dis. Lt leg cellulitis chronic pedal edema Chronic Lt leg DVT & Hx/o PE on coumadin anticoagulation Hx/o lung Ca Hypothyroidism uncontrolled sec to ? noncompliance Multiple Myeloma. Details are not available at this time Plan: Suggest to continue with hydration. There has been some improvement ie BUN/ Creat overnight Monitor urine output Will order urine for protein/Cr Record daily urine output
[2018-02-20] MEDS: Levothyroxine 50 MCG TAB PO SCH (05:44)
[2018-02-20 06:08] LABS: INR 2.9 (0.9-1.2); PARTIAL THROMBOPLASTIN TIME 36.6 Seconds (25.6-37.1); PROTHROMBIN TIME 33.3 Seconds (9.8-13.1)
[2018-02-20] MEDS: ceFAZolin 1 GM in Sodium Chloride 0.9% 100 ML IVPB SCH ×2 (08:17→21:29)
[2018-02-20 10:17] LABS: HEMOGLOBIN 9.3 g/dL (12.0-16.0); MEAN CELL VOLUME 104.8 fl (81.0-99.0); MEAN CORPUSCULAR HEMOGLOBIN 35.6 pg (27.0-31.0); RBC 2.61 Mil/uL (3.80-5.20); RED CELL DISTRIBUTION WIDTH 14.5 % (11.5-14.5); WHITE BLOOD COUNT 5.1 K/uL (4.8-10.8)
[2018-02-20 10:28] LABS: CALCIUM 8.5 mg/dL (8.4-10.2)
--- NOTE | 2018-02-20 13:11 | CP.PCM.PN ---
Subjective - Date & Time of Evaluation Date of Evaluation: 02/20/18 Time of Evaluation: 12:50 - Subjective Subjective: Sitting up in bet & having lunch States she feels better. Appears comfortable. Objective - Vital Signs/Intake and Output Vital Signs (last 24 hours): Temp Pulse Resp BP Pulse Ox 98.4 F 76 18 88/50 L 94 L 02/20/18 11:42 02/20/18 11:42 02/20/18 11:42 02/20/18 11:42 02/20/18 11:42 Intake and Output: 02/20/18 02/20/18 06:59 18:59 Intake Total 960 Balance 960 - Medications Medications: Current Medications Acetaminophen (Tylenol 325mg Tab) 650 mg PO Q4 PRN PRN Reason: Pain, Mild (1-3) Last Admin: 02/20/18 05:43 Dose: 650 mg Cefazolin Sodium 1 gm/ Sodium (Chloride) 100 mls @ 100 mls/hr IVPB Q12 [facility] PRN Reason: Protocol Last Admin: 02/20/18 08:17 Dose: 100 mls/hr Levothyroxine Sodium (Synthroid) 50 mcg PO DAILY@0630 [facility] Last Admin: 02/20/18 05:44 Dose: 50 mcg - Labs Labs: 02/20/18 10:18 02/20/18 07:00 PT 33.3 Seconds (9.8-13.1) H 02/20/18 04:20 INR 2.9 (0.9-1.2) H 02/20/18 04:20 APTT 36.6 Seconds (25.6-37.1) 02/20/18 04:20 - Head Exam Head Exam: ATRAUMATIC, NORMOCEPHALIC - Eye Exam Additional comments: No icterus - ENT Exam ENT Exam: Mucous Membranes Dry - Neck Exam Additional comments: Thyroid not palpable - Respiratory Exam Respiratory Exam: NORMAL BREATHING PATTERN Additional comments: Lungs clear - Cardiovascular Exam Cardiovascular Exam: REGULAR RHYTHM Additional comments: No gallop or rub - GI/Abdominal Exam GI & Abdominal Exam: Soft Additional comments: Nontender - Rectal Exam Rectal Exam: Deferred - Extremities Exam Additional comments: Marked decrease in b/l pedal edema - Neurological Exam Neurological Exam: Alert, Oriented x3 Assessment and Plan - Assessment and Plan (Free Text) Assessment: Azotemia secondary to dehydration Renal function is improving & urine output remains good Pedal edema has significantly improved Hypothyroidism Hx/o throit resection secodary to tumor. Details not known at this time. Cellulitis is also resolving & blood cultures remain negative Hx/o lung Ca Plan: Continue with IV hydration but the rate of infusion may be decreased to 60 cc/hr 24 hr urine for protein is pending BMP in am
--- NOTE | 2018-02-20 13:48 | CP.PCM.PN ---
Subjective - Date & Time of Evaluation Date of Evaluation: 02/20/18 Time of Evaluation: 10:00 - Subjective Subjective: cellulitis less Objective - Vital Signs/Intake and Output Vital Signs (last 24 hours): Temp Pulse Resp BP Pulse Ox 98.4 F 76 18 88/50 L 94 L 02/20/18 11:42 02/20/18 11:42 02/20/18 11:42 02/20/18 11:42 02/20/18 11:42 Intake and Output: 02/20/18 02/20/18 06:59 18:59 Intake Total 960 Balance 960 - Medications Medications: Current Medications Acetaminophen (Tylenol 325mg Tab) 650 mg PO Q4 PRN PRN Reason: Pain, Mild (1-3) Last Admin: 02/20/18 05:43 Dose: 650 mg Cefazolin Sodium 1 gm/ Sodium (Chloride) 100 mls @ 100 mls/hr IVPB Q12 [facility] PRN Reason: Protocol Last Admin: 02/20/18 08:17 Dose: 100 mls/hr Levothyroxine Sodium (Synthroid) 50 mcg PO DAILY@0630 [facility] Last Admin: 02/20/18 05:44 Dose: 50 mcg - Labs Labs: 02/20/18 10:18 02/20/18 07:00 PT 33.3 Seconds (9.8-13.1) H 02/20/18 04:20 INR 2.9 (0.9-1.2) H 02/20/18 04:20 APTT 36.6 Seconds (25.6-37.1) 02/20/18 04:20 - Constitutional Appears: Non-toxic, Chronically Ill - Head Exam Head Exam: NORMOCEPHALIC - Eye Exam Eye Exam: PERRL - ENT Exam ENT Exam: Mucous Membranes Dry - Neck Exam Neck Exam: absent: Lymphadenopathy - Respiratory Exam Respiratory Exam: Decreased Breath Sounds - Cardiovascular Exam Cardiovascular Exam: REGULAR RHYTHM - GI/Abdominal Exam GI & Abdominal Exam: Distended - Rectal Exam Rectal Exam: Deferred Assessment and Plan (1) Cellulitis of left leg Status: Deleted (2) DVT, lower extremity, distal, chronic Status: Chronic (3) Renal insufficiency Status: Deleted (4) Dehydration Status: Acute
--- NOTE | 2018-02-20 15:43 | CP.PCM.PN ---
Subjective - Date & Time of Evaluation Date of Evaluation: 02/20/18 Time of Evaluation: 12:00 - Subjective Subjective: F/U VALERI Awake, alert, c/o of feeling weak, unable to stand steady, requiring assistance. Objective - Vital Signs/Intake and Output Vital Signs (last 24 hours): Temp Pulse Resp BP Pulse Ox 98.4 F 76 18 88/50 L 94 L 02/20/18 11:42 02/20/18 11:42 02/20/18 11:42 02/20/18 11:42 02/20/18 11:42 Intake and Output: 02/20/18 02/20/18 06:59 18:59 Intake Total 960 Balance 960 - Medications Medications: Current Medications Acetaminophen (Tylenol 325mg Tab) 650 mg PO Q4 PRN PRN Reason: Pain, Mild (1-3) Last Admin: 02/20/18 14:24 Dose: 650 mg Cefazolin Sodium 1 gm/ Sodium (Chloride) 100 mls @ 100 mls/hr IVPB Q12 [facility] PRN Reason: Protocol Last Admin: 02/20/18 08:17 Dose: 100 mls/hr Levothyroxine Sodium (Synthroid) 50 mcg PO DAILY@0630 [facility] Last Admin: 02/20/18 05:44 Dose: 50 mcg - Labs Labs: 02/20/18 10:18 02/20/18 07:00 PT 33.3 Seconds (9.8-13.1) H 02/20/18 04:20 INR 2.9 (0.9-1.2) H 02/20/18 04:20 APTT 36.6 Seconds (25.6-37.1) 02/20/18 04:20 - Constitutional Appears: Chronically Ill - Head Exam Head Exam: NORMAL INSPECTION - Eye Exam Eye Exam: PERRL - ENT Exam ENT Exam: Normal Exam - Neck Exam Neck Exam: Normal Inspection - Respiratory Exam Respiratory Exam: NORMAL BREATHING PATTERN - Cardiovascular Exam Cardiovascular Exam: REGULAR RHYTHM - GI/Abdominal Exam GI & Abdominal Exam: Soft, Normal Bowel Sounds - Extremities Exam Additional comments: Edema BLE, Erythema L leg improved. - Back Exam Additional comments: Healing wound R buttock. - Neurological Exam Neurological Exam: Alert, CN II-XII Intact, Oriented x3 Additional comments: Weaknesses - Psychiatric Exam Psychiatric exam: Normal Mood - Skin Skin Exam: Warm Assessment and Plan (1) VALERI (acute kidney injury) Status: Acute (2) Dehydration Status: Acute (3) Multiple myeloma Status: Chronic (4) Hx of cancer of lung Status: Acute (5) DVT, lower extremity, distal, chronic Status: Chronic (6) Hx pulmonary embolism Status: Chronic (7) Cellulitis of left lower extremity Status: Acute (8) Decubitus ulcer of sacral region, stage 1 Status: Resolved (9) Hypothyroidism Status: Chronic - Assessment and Plan (Free Text) Plan: Blood C-S No growth, U C-S: Multiple species, reapeat U C-S, continue Cefalozin and rest of Tx.
[2018-02-21] MEDS: Levothyroxine 50 MCG TAB PO SCH (05:59)
[2018-02-21 06:49] LABS: PROTHROMBIN TIME 33.6 Seconds (9.8-13.1)
[2018-02-21] MEDS: ceFAZolin 1 GM in Sodium Chloride 0.9% 100 ML IVPB SCH (08:30)
--- NOTE | 2018-02-21 11:56 | CP.PCM.PN ---
Subjective - Date & Time of Evaluation Date of Evaluation: 02/21/18 Time of Evaluation: 11:40 - Subjective Subjective: Pt feels better & looks much more comfortable. Objective - Vital Signs/Intake and Output Vital Signs (last 24 hours): Temp Pulse Resp BP Pulse Ox 99.6 F 82 18 108/62 95 02/21/18 08:01 02/21/18 08:01 02/21/18 08:01 02/21/18 08:01 02/21/18 08:01 - Medications Medications: Current Medications Acetaminophen (Tylenol 325mg Tab) 650 mg PO Q4 PRN PRN Reason: Pain, Mild (1-3) Last Admin: 02/21/18 01:10 Dose: 650 mg Cefazolin Sodium 1 gm/ Sodium (Chloride) 100 mls @ 100 mls/hr IVPB Q12 [facility]BECCA PRN Reason: Protocol Last Admin: 02/21/18 08:30 Dose: 100 mls/hr Levothyroxine Sodium (Synthroid) 50 mcg PO DAILY@0630 [facility] Last Admin: 02/21/18 05:59 Dose: 50 mcg - Labs Labs: 02/20/18 10:18 02/20/18 07:00 PT 33.6 Seconds (9.8-13.1) H 02/21/18 04:55 INR 3.0 (0.9-1.2) H 02/21/18 04:55 APTT 37.0 Seconds (25.6-37.1) 02/21/18 04:55 - Head Exam Head Exam: ATRAUMATIC, NORMOCEPHALIC - Eye Exam Eye Exam: Normal appearance - ENT Exam ENT Exam: Mucous Membranes Moist - Neck Exam Neck Exam: Normal Inspection - Respiratory Exam Respiratory Exam: NORMAL BREATHING PATTERN Additional comments: Lungs clear No wheezes. - Cardiovascular Exam Cardiovascular Exam: REGULAR RHYTHM Additional comments: No gallops - GI/Abdominal Exam GI & Abdominal Exam: Soft Additional comments: No tenderness Liver span is normal - Extremities Exam Additional comments: No edema or cyanosis - Neurological Exam Neurological Exam: Oriented x3 Additional comments: No focal deficits - Skin Additional comments: No cyanosis or rashes Assessment and Plan - Assessment and Plan (Free Text) Assessment: Resolving acute renal failure secondary to dehydration Hypothyroidism S/P thyroidectomy Pedal edema resolved0 MM serum EP is pending Hx/o lung Ca Plan: Todays labs are pending Continue current Mx Blood pressures are improving.
--- NOTE | 2018-02-21 13:45 | CP.PCM.PN ---
Subjective - Date & Time of Evaluation Date of Evaluation: 02/21/18 Time of Evaluation: 10:40 - Subjective Subjective: F/U VALERI Pt awake, no A/D, not able to stand up, weak. Objective - Vital Signs/Intake and Output Vital Signs (last 24 hours): Temp Pulse Resp BP Pulse Ox 101.9 F H 77 18 107/61 96 02/21/18 12:16 02/21/18 12:16 02/21/18 12:16 02/21/18 12:16 02/21/18 12:16 - Medications Medications: Current Medications Acetaminophen (Tylenol 325mg Tab) 650 mg PO Q4 PRN PRN Reason: Fever >100.4 F Cefazolin Sodium 1 gm/ Sodium (Chloride) 100 mls @ 100 mls/hr IVPB Q12 REBECCA PRN Reason: Protocol Last Admin: 02/21/18 08:30 Dose: 100 mls/hr Levothyroxine Sodium (Synthroid) 50 mcg PO DAILY@0630 [facility] Last Admin: 02/21/18 05:59 Dose: 50 mcg - Labs Labs: 02/20/18 10:18 02/20/18 07:00 PT 33.6 Seconds (9.8-13.1) H 02/21/18 04:55 INR 3.0 (0.9-1.2) H 02/21/18 04:55 APTT 37.0 Seconds (25.6-37.1) 02/21/18 04:55 - Constitutional Appears: Chronically Ill - Head Exam Head Exam: NORMAL INSPECTION - Eye Exam Eye Exam: PERRL - ENT Exam ENT Exam: Normal Exam - Neck Exam Neck Exam: Normal Inspection - Respiratory Exam Respiratory Exam: NORMAL BREATHING PATTERN - Cardiovascular Exam Cardiovascular Exam: REGULAR RHYTHM - GI/Abdominal Exam GI & Abdominal Exam: Soft, Normal Bowel Sounds - Extremities Exam Additional comments: Edema 2+ non pitting BLE, erythema L leg improved - Back Exam Additional comments: Healing wound R buttock. - Neurological Exam Neurological Exam: Alert, CN II-XII Intact, Oriented x3 Additional comments: Weaknesses - Psychiatric Exam Psychiatric exam: Normal Mood - Skin Skin Exam: Warm Assessment and Plan (1) VALERI (acute kidney injury) Status: Acute (2) Dehydration Status: Acute (3) Multiple myeloma Status: Chronic (4) Hx of cancer of lung Status: Acute (5) DVT, lower extremity, distal, chronic Status: Chronic (6) Hx pulmonary embolism Status: Chronic (7) Cellulitis of left lower extremity Status: Acute (8) Decubitus ulcer of sacral region, stage 1 Status: Resolved (9) Hypothyroidism Status: Chronic - Assessment and Plan (Free Text) Plan: Continue Cefepime and rest of Tx.
[2018-02-21 14:45] LABS: CALCIUM 8.4 mg/dL (8.4-10.2)
--- NOTE | 2018-02-21 16:21 | RAD ---
HISTORY: COMPARISON: 02/18/2018. TECHNIQUE: Chest PA and lateral FINDINGS: LINES AND TUBES: None. LUNG AND PLEURA: The left lung is clear. There are postsurgical changes in the right upper lobe and fibrotic changes in the right lower lobe. There is right pleural thickening. No pleural effusion or pneumothorax the HEART AND MEDIASTINUM: The heart is not enlarged. The hilar and mediastinal contours are within normal limits. SKELETAL STRUCTURES: The bony structures are within normal limits for the patient's age. VISUALIZED UPPER ABDOMEN: Normal. OTHER FINDINGS: None. IMPRESSION: No active pulmonary disease. Stable postsurgical changes in the right lung.
--- NOTE | 2018-02-21 17:24 | CP.PCM.PN ---
Subjective - Date & Time of Evaluation Date of Evaluation: 02/21/18 Time of Evaluation: 08:00 - Subjective Subjective: high grade fever source unclear awake bedridden no distress denies chest pain cough or sob Objective - Vital Signs/Intake and Output Vital Signs (last 24 hours): Temp Pulse Resp BP Pulse Ox 102.7 F H 83 20 97/56 L 93 L 02/21/18 15:55 02/21/18 15:55 02/21/18 15:55 02/21/18 15:55 02/21/18 15:55 - Medications Medications: Current Medications Acetaminophen (Tylenol 325mg Tab) 650 mg PO Q4 PRN PRN Reason: Fever >100.4 F Last Admin: 02/21/18 14:28 Dose: 325 mg Cefazolin Sodium 1 gm/ Sodium (Chloride) 100 mls @ 100 mls/hr IVPB Q12 REBECCA PRN Reason: Protocol Last Admin: 02/21/18 08:30 Dose: 100 mls/hr Levothyroxine Sodium (Synthroid) 50 mcg PO DAILY@0630 [facility] Last Admin: 02/21/18 05:59 Dose: 50 mcg - Labs Labs: 02/20/18 10:18 02/21/18 13:38 PT 33.6 Seconds (9.8-13.1) H 02/21/18 04:55 INR 3.0 (0.9-1.2) H 02/21/18 04:55 APTT 37.0 Seconds (25.6-37.1) 02/21/18 04:55 - Constitutional Appears: Non-toxic, Chronically Ill - Head Exam Head Exam: NORMOCEPHALIC - Eye Exam Eye Exam: PERRL - ENT Exam ENT Exam: Mucous Membranes Dry - Neck Exam Neck Exam: absent: Lymphadenopathy - Respiratory Exam Respiratory Exam: Decreased Breath Sounds - Cardiovascular Exam Cardiovascular Exam: REGULAR RHYTHM - GI/Abdominal Exam GI & Abdominal Exam: Distended - Rectal Exam Rectal Exam: Deferred - Exam Exam: NORMAL INSPECTION - Extremities Exam Extremities Exam: Pedal Edema, Tenderness - Back Exam Back Exam: absent: CVA tenderness (L), CVA tenderness (R), paraspinal tenderness - Neurological Exam Neurological Exam: Alert, Awake, CN II-XII Intact, Oriented x3 - Psychiatric Exam Psychiatric exam: Depressed - Skin Skin Exam: Dry Assessment and Plan (1) Cellulitis of left leg Status: Deleted (2) DVT, lower extremity, distal, chronic Status: Chronic (3) Renal insufficiency Status: Deleted (4) Dehydration Status: Acute - Assessment and Plan (Free Text) Assessment: recultured CXR neg for infiltrates will broaden coverage check lactate level
[2018-02-21] MEDS: Cefepime 1 GM in Sodium Chloride 0.9% 100 ML IVPB SCH (21:24)
[2018-02-22 05:38] LABS: BASO % 0.9 % (0.0-2.0); EOS % 1.3 % (0.0-4.0); HEMOGLOBIN 9.9 g/dL (12.0-16.0); LYMPH # 0.4 K/uL (1.0-4.3); LYMPH % 14.5 % (20.0-40.0); MEAN CELL VOLUME 103.9 fl (81.0-99.0); MEAN CORPUSCULAR HEMOGLOBIN 35.3 pg (27.0-31.0); MEAN PLATELET VOLUME 9.7 fl (7.2-11.7); MONO # 0.1 K/uL (0.0-0.8); MONO % 3.4 % (0.0-10.0); NEUT # 2.4 K/uL (1.8-7.0); NEUT % 79.9 % (50.0-75.0); NRBC % 0.5 % (0.0-0.0); RBC 2.79 Mil/uL (3.80-5.20); RED CELL DISTRIBUTION WIDTH 13.9 % (11.5-14.5)
[2018-02-22 05:58] LABS: ALB/GLOB RATIO 0.8 (1.0-2.1); CALCIUM 8.4 mg/dL (8.4-10.2)
[2018-02-22] MEDS: Levothyroxine 50 MCG TAB PO SCH (06:21)
[2018-02-22] MEDS: Cefepime 1 GM in Sodium Chloride 0.9% 100 ML IVPB SCH ×2 (08:24→21:08)
[2018-02-22 10:33] LABS: INR 2.5 (0.9-1.2); PROTHROMBIN TIME 28.5 Seconds (9.8-13.1)
--- NOTE | 2018-02-22 13:27 | CP.PCM.PN ---
Subjective - Date & Time of Evaluation Date of Evaluation: 02/22/18 Time of Evaluation: 01:00 - Subjective Subjective: Resting in bed comfortably No complaints reported Objective - Vital Signs/Intake and Output Vital Signs (last 24 hours): Temp Pulse Resp BP Pulse Ox 99.2 F 80 20 123/60 96 02/22/18 11:47 02/22/18 11:47 02/22/18 11:47 02/22/18 11:47 02/22/18 11:47 - Medications Medications: Current Medications Acetaminophen (Tylenol 325mg Tab) 650 mg PO Q4 PRN PRN Reason: Fever >100.4 F Last Admin: 02/21/18 14:28 Dose: 325 mg Cefepime HCl 1 gm/ Sodium (Chloride) 100 mls @ 100 mls/hr IVPB Q12 REBECCA PRN Reason: Protocol Last Admin: 02/22/18 08:24 Dose: 100 mls/hr Levothyroxine Sodium (Synthroid) 50 mcg PO DAILY@0630 [facility] Last Admin: 02/22/18 06:21 Dose: 50 mcg - Labs Labs: 02/22/18 05:00 02/22/18 05:00 PT 28.5 Seconds (9.8-13.1) H D 02/22/18 09:55 INR 2.5 (0.9-1.2) H D 02/22/18 09:55 APTT 37.0 Seconds (25.6-37.1) 02/21/18 04:55 - Head Exam Head Exam: ATRAUMATIC, NORMOCEPHALIC - Eye Exam Eye Exam: Normal appearance - ENT Exam ENT Exam: Mucous Membranes Moist - Respiratory Exam Respiratory Exam: NORMAL BREATHING PATTERN Additional comments: Lungs clear - Cardiovascular Exam Cardiovascular Exam: REGULAR RHYTHM, +S1, +S2 - GI/Abdominal Exam GI & Abdominal Exam: Soft - Extremities Exam Additional comments: improvement in pedal edema Assessment and Plan - Assessment and Plan (Free Text) Assessment: Acute increase in BUN/Creat. Renal function has improved with hydration. LLE cellulitis. 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 Hypothyroidism S/P thyrodectomy. Plan: Continue to monitor renal function. Urine out put remains good. Avoid any potentially nephrotoxic meds.
--- NOTE | 2018-02-22 13:49 | CP.PCM.PN ---
Subjective - Date & Time of Evaluation Date of Evaluation: 02/22/18 Time of Evaluation: 10:00 - Subjective Subjective: switched to Cefepime IV rx in progress for UTI Objective - Vital Signs/Intake and Output Vital Signs (last 24 hours): Temp Pulse Resp BP Pulse Ox 99.2 F 80 20 123/60 96 02/22/18 11:47 02/22/18 11:47 02/22/18 11:47 02/22/18 11:47 02/22/18 11:47 - Medications Medications: Current Medications Acetaminophen (Tylenol 325mg Tab) 650 mg PO Q4 PRN PRN Reason: Fever >100.4 F Last Admin: 02/21/18 14:28 Dose: 325 mg Cefepime HCl 1 gm/ Sodium (Chloride) 100 mls @ 100 mls/hr IVPB Q12 REBECCA PRN Reason: Protocol Last Admin: 02/22/18 08:24 Dose: 100 mls/hr Levothyroxine Sodium (Synthroid) 50 mcg PO DAILY@0630 [facility] Last Admin: 02/22/18 06:21 Dose: 50 mcg - Labs Labs: 02/22/18 05:00 02/22/18 05:00 PT 28.5 Seconds (9.8-13.1) H D 02/22/18 09:55 INR 2.5 (0.9-1.2) H D 02/22/18 09:55 APTT 37.0 Seconds (25.6-37.1) 02/21/18 04:55 - Constitutional Appears: Non-toxic, Chronically Ill - Head Exam Head Exam: NORMOCEPHALIC - Eye Exam Eye Exam: PERRL - ENT Exam ENT Exam: Mucous Membranes Dry - Neck Exam Neck Exam: absent: Lymphadenopathy - Respiratory Exam Respiratory Exam: Decreased Breath Sounds - Cardiovascular Exam Cardiovascular Exam: REGULAR RHYTHM - GI/Abdominal Exam GI & Abdominal Exam: Distended - Rectal Exam Rectal Exam: Deferred Assessment and Plan (1) Cellulitis of left leg Status: Deleted (2) DVT, lower extremity, distal, chronic Status: Chronic (3) Renal insufficiency Status: Deleted (4) Dehydration Status: Acute
--- NOTE | 2018-02-22 17:20 | CP.PCM.PN ---
Subjective - Subjective Subjective: generalized weakness , need assistance , incontinent of urine as per nurses Objective - Vital Signs/Intake and Output Vital Signs (last 24 hours): Temp Pulse Resp BP Pulse Ox 98.8 F 81 16 118/69 92 L 02/22/18 16:09 02/22/18 16:09 02/22/18 16:09 02/22/18 16:09 02/22/18 16:09 - Medications Medications: Current Medications Acetaminophen (Tylenol 325mg Tab) 650 mg PO Q4 PRN PRN Reason: Fever >100.4 F Last Admin: 02/21/18 14:28 Dose: 325 mg Cefepime HCl 1 gm/ Sodium (Chloride) 100 mls @ 100 mls/hr IVPB Q12 REBECCA PRN Reason: Protocol Last Admin: 02/22/18 08:24 Dose: 100 mls/hr Levothyroxine Sodium (Synthroid) 50 mcg PO DAILY@0630 [facility] Last Admin: 02/22/18 06:21 Dose: 50 mcg - Labs Labs: 02/22/18 05:00 02/22/18 05:00 PT 28.5 Seconds (9.8-13.1) H D 02/22/18 09:55 INR 2.5 (0.9-1.2) H D 02/22/18 09:55 APTT 37.0 Seconds (25.6-37.1) 02/21/18 04:55 - Constitutional Appears: Chronically Ill - Head Exam Head Exam: NORMAL INSPECTION - Eye Exam Eye Exam: PERRL - ENT Exam ENT Exam: Normal Exam - Neck Exam Neck Exam: Normal Inspection - Respiratory Exam Respiratory Exam: Decreased Breath Sounds (at bases) - Cardiovascular Exam Cardiovascular Exam: REGULAR RHYTHM - GI/Abdominal Exam GI & Abdominal Exam: Soft, Normal Bowel Sounds - Extremities Exam Additional comments: erythema L leg improved , no tenderness L leg - Back Exam Additional comments: R gluteal wound healing - Neurological Exam Neurological Exam: Awake Additional comments: no focal motor/sensory deficit , generalized weakness - Psychiatric Exam Psychiatric exam: Flat Affect - Skin Skin Exam: Warm - Additional Findings Additional findings: VALERI improved with hydration , cellulitis L leg improved , continue Cefepime and rest of treatment Assessment and Plan (1) VALERI (acute kidney injury) Status: Acute (2) Dehydration Status: Acute (3) Multiple myeloma Status: Chronic (4) Hx of cancer of lung Status: Acute (5) DVT, lower extremity, distal, chronic Status: Chronic (6) Hx pulmonary embolism Status: Chronic (7) Cellulitis of left lower extremity Status: Acute (8) Decubitus ulcer of sacral region, stage 1 Status: Resolved (9) Hypothyroidism Status: Chronic - Assessment and Plan (Free Text) Plan: VALERI improved , cellulitis
[2018-02-23] MEDS: Levothyroxine 50 MCG TAB PO SCH (06:24)
[2018-02-23] MEDS: Cefepime 1 GM in Sodium Chloride 0.9% 100 ML IVPB SCH (08:36)
[2018-02-23] MEDS: Dextrose 5%/0.45% NS 1,000 ML IV SCH (09:53)
[2018-02-23 10:21] LABS: HEMOGLOBIN 9.7 g/dL (12.0-16.0); MEAN CELL VOLUME 103.6 fl (81.0-99.0); MEAN CORPUSCULAR HEMOGLOBIN 35.1 pg (27.0-31.0); MEAN CORPUSCULAR HGB CONC 33.9 g/dL (33.0-37.0); RBC 2.76 Mil/uL (3.80-5.20); RED CELL DISTRIBUTION WIDTH 14.4 % (11.5-14.5); WHITE BLOOD COUNT 2.3 K/uL (4.8-10.8)
[2018-02-23 10:40] LABS: ALB/GLOB RATIO 0.8 (1.0-2.1); ALBUMIN 2.7 g/dL (3.5-5.0); CALCIUM 8.6 mg/dL (8.4-10.2)
--- NOTE | 2018-02-23 11:25 | CP.PCM.PN ---
Subjective - Date & Time of Evaluation Date of Evaluation: 02/23/18 Time of Evaluation: 11:15 - Subjective Subjective: Pt is lethargic today. Arousable to loud verbal stimuli. Oriented to place. Objective - Vital Signs/Intake and Output Vital Signs (last 24 hours): Temp Pulse Resp BP Pulse Ox 99.1 F 78 20 98/58 L 94 L 02/23/18 07:58 02/23/18 09:00 02/23/18 07:58 02/23/18 07:58 02/23/18 07:58 - Medications Medications: Current Medications Acetaminophen (Tylenol 325mg Tab) 650 mg PO Q4 PRN PRN Reason: Fever >100.4 F Last Admin: 02/21/18 14:28 Dose: 325 mg Cefepime HCl 1 gm/ Sodium (Chloride) 100 mls @ 100 mls/hr IVPB Q12 REBECCA PRN Reason: Protocol Last Admin: 02/23/18 08:36 Dose: 100 mls/hr Dextrose/Sodium Chloride (Dextrose 5%/0.45% Ns 1000 Ml) 1,000 mls @ 80 mls/hr IV .[id number] [facility] Stop: 02/24/18 09:01 Last Admin: 02/23/18 09:53 Dose: 80 mls/hr Levothyroxine Sodium (Synthroid) 50 mcg PO DAILY@0630 [facility] Last Admin: 02/23/18 06:24 Dose: 50 mcg - Labs Labs: 02/23/18 09:24 02/23/18 09:24 PT 28.5 Seconds (9.8-13.1) H D 02/22/18 09:55 INR 2.5 (0.9-1.2) H D 02/22/18 09:55 APTT 37.0 Seconds (25.6-37.1) 02/21/18 04:55 - Eye Exam Additional comments: No icterus - ENT Exam ENT Exam: Mucous Membranes Dry - Neck Exam Additional comments: No nuchal rigidity - Respiratory Exam Respiratory Exam: NORMAL BREATHING PATTERN Additional comments: Lungs clear - Cardiovascular Exam Cardiovascular Exam: REGULAR RHYTHM, +S1, +S2 - GI/Abdominal Exam GI & Abdominal Exam: Soft Additional comments: Nontender - Extremities Exam Additional comments: No edema or cyanosis - Neurological Exam Additional comments: No gaze preferance. Pupils equal & reactive Moves all extrem. in response to physical stimuli Assessment and Plan - Assessment and Plan (Free Text) Assessment: Resolving acute renal failure. Creatinine is stable Dehydration Lethargy. may be dehydrated again. Chronic LLE DVT. Cellulitis improved Plan: Agree with hydration Repeat TSH Todays labs reviewed & are stable
[2018-02-23] MEDS ORDERED: Levothyroxine 25 MCG TAB PO STA (14:36)
--- NOTE | 2018-02-23 16:22 | CP.PCM.PN ---
Subjective - Date & Time of Evaluation Date of Evaluation: 02/23/18 Time of Evaluation: 15:30 - Subjective Subjective: F/U VALERI more alert and responsive, follows commands , eating better, incontinebt of urine Objective - Vital Signs/Intake and Output Vital Signs (last 24 hours): Temp Pulse Resp BP Pulse Ox 98.7 F 76 16 100/66 94 L 02/23/18 16:13 02/23/18 16:13 02/23/18 16:13 02/23/18 16:13 02/23/18 16:13 - Medications Medications: Current Medications Acetaminophen (Tylenol 325mg Tab) 650 mg PO Q4 PRN PRN Reason: Fever >100.4 F Last Admin: 02/21/18 14:28 Dose: 325 mg Cefepime HCl 1 gm/ Sodium (Chloride) 100 mls @ 100 mls/hr IVPB Q12 [facility]BECCA PRN Reason: Protocol Last Admin: 02/23/18 08:36 Dose: 100 mls/hr Dextrose/Sodium Chloride (Dextrose 5%/0.45% Ns 1000 Ml) 1,000 mls @ 80 mls/hr IV .[id number] [facility] Stop: 02/24/18 09:01 Last Admin: 02/23/18 09:53 Dose: 80 mls/hr Levothyroxine Sodium (Synthroid) 75 mcg PO DAILY@0630 [facility] - Labs Labs: 02/23/18 09:24 02/23/18 09:24 PT 28.5 Seconds (9.8-13.1) H D 02/22/18 09:55 INR 2.5 (0.9-1.2) H D 02/22/18 09:55 APTT 37.0 Seconds (25.6-37.1) 02/21/18 04:55 - Constitutional Appears: Chronically Ill - Head Exam Head Exam: NORMAL INSPECTION - Eye Exam Eye Exam: PERRL - ENT Exam ENT Exam: Normal Exam - Neck Exam Neck Exam: Normal Inspection - Respiratory Exam Respiratory Exam: Decreased Breath Sounds (a bases) - Cardiovascular Exam Cardiovascular Exam: REGULAR RHYTHM - GI/Abdominal Exam GI & Abdominal Exam: Soft, Normal Bowel Sounds - Extremities Exam Additional comments: Erythema L leg improving. - Back Exam Additional comments: R gluteal wound healing - Neurological Exam Neurological Exam: Awake Additional comments: follows commands , No focal motor/sensory deficit, generalized weakness. - Psychiatric Exam Psychiatric exam: Flat Affect - Skin Skin Exam: Warm Assessment and Plan (1) VALERI (acute kidney injury) Status: Acute (2) Dehydration Status: Acute (3) Multiple myeloma Status: Chronic (4) Hx of cancer of lung Status: Acute (5) DVT, lower extremity, distal, chronic Status: Chronic (6) Hx pulmonary embolism Status: Chronic (7) Cellulitis of left lower extremity Status: Acute (8) Decubitus ulcer of sacral region, stage 1 Status: Resolved (9) Hypothyroidism Status: Chronic - Assessment and Plan (Free Text) Plan: continue IVF , Synthroid , Cefepime , Cipro
[2018-02-23] MEDS ORDERED: DiphenhydrAMINE 50 mg/ml Inj IVP STA (17:44)
[2018-02-23 19:04] LABS: GRANULAR CAST 1 /lpf (0-1); SQUAMOUS EPITHIAL 7 /hpf (0-5); URINE AMORPHOUS SEDIMENT RARE /ul (<OCC); URINE BACTERIA RARE (<OCC); URINE BILIRUBIN NEGATIVE (NEGATIVE); URINE BLOOD MODERATE (NEGATIVE); URINE CLARITY CLOUDY (Clear); URINE COLOR YELLOW (YELLOW); URINE GLUCOSE (UA) NEG (Normal); URINE LEUKOCYTE ESTERASE LARGE Leu/uL (Negative); URINE PROTEIN 100 mg/dL (NEGATIVE); URINE UROBILINOGEN 0.2-1.0 mg/dL (0.2-1.0); WBC CLUMPS FEW /hpf
[2018-02-23] MEDS: Ciprofloxacin 200mg/100ml D5W 100 ML IVPB SCH (20:29)
[2018-02-24] MEDS: Levothyroxine 75 MCG TAB PO SCH (06:08)
[2018-02-24] MEDS: Dextrose 5%/0.45% NS 1,000 ML IV SCH (06:08)
[2018-02-24 07:15] LABS: T4 6.81 ug/dl (5.5-11.0)
[2018-02-24 07:28] LABS: T3 0.325 nmol/L (1.49-2.60)
[2018-02-24] MEDS: Ciprofloxacin 200mg/100ml D5W 100 ML IVPB SCH ×2 (08:24→21:15)
--- NOTE | 2018-02-24 12:17 | CP.PCM.PN ---
Subjective - Date & Time of Evaluation Date of Evaluation: 02/24/18 Time of Evaluation: 11:55 - Subjective Subjective: Pt again noted to be very lethargic. Cannot articulate well. Answers questions with mumbling Objective - Vital Signs/Intake and Output Vital Signs (last 24 hours): Temp Pulse Resp BP Pulse Ox 98.7 F 78 20 116/72 96 02/24/18 11:48 02/24/18 11:48 02/24/18 11:48 02/24/18 11:48 02/24/18 11:48 - Medications Medications: Current Medications Acetaminophen (Tylenol 325mg Tab) 650 mg PO Q4 PRN PRN Reason: Fever >100.4 F Last Admin: 02/21/18 14:28 Dose: 325 mg Cefepime HCl 1 gm/ Sodium (Chloride) 100 mls @ 100 mls/hr IVPB Q12 [facility] PRN Reason: Protocol Last Admin: 02/23/18 08:36 Dose: 100 mls/hr Ciprofloxacin (Cipro 200mg/100ml D5w) 100 mls @ 100 mls/hr IVPB Q12 [facility] PRN Reason: Protocol Last Admin: 02/24/18 08:24 Dose: 100 mls/hr Levothyroxine Sodium (Synthroid) 75 mcg PO DAILY@0630 [facility] Last Admin: 02/24/18 06:08 Dose: 75 mcg - Labs Labs: 02/23/18 09:24 02/23/18 09:24 PT 28.5 Seconds (9.8-13.1) H D 02/22/18 09:55 INR 2.5 (0.9-1.2) H D 02/22/18 09:55 APTT 37.0 Seconds (25.6-37.1) 02/21/18 04:55 - Head Exam Head Exam: ATRAUMATIC, NORMOCEPHALIC - Eye Exam Eye Exam: EOMI - ENT Exam ENT Exam: Mucous Membranes Dry - Neck Exam Additional comments: No nuchal rigidity - Respiratory Exam Respiratory Exam: NORMAL BREATHING PATTERN Additional comments: Lungs clear - Cardiovascular Exam Cardiovascular Exam: REGULAR RHYTHM - GI/Abdominal Exam GI & Abdominal Exam: Soft Additional comments: No tendernedd - Extremities Exam Additional comments: No edema or cyanosis - Neurological Exam Additional comments: MS as above. Speech mumbles No gaze preference Equal muscle tone in both UEs. Unable to examine power because pt cannot cooperate. Assessment and Plan - Assessment and Plan (Free Text) Assessment: Change in mental status. Needs stat CT scan of head ARF nearly resolved Hypothyroidisnm LLE DVT on coumadine anticoagulation. Plan: CT scan of heaad is ordered ,r/o intracranial bleed or other pathology Continue to monitor renal function Continue with IVFs because is not eating well
--- NOTE | 2018-02-24 13:35 | CP.PCM.PN ---
Subjective - Date & Time of Evaluation Date of Evaluation: 02/24/18 Time of Evaluation: 11:00 - Subjective Subjective: awake alert ? reaction to cefepime has pseudomonas urine sens to Cipro Objective - Vital Signs/Intake and Output Vital Signs (last 24 hours): Temp Pulse Resp BP Pulse Ox 98.7 F 78 20 116/72 96 02/24/18 11:48 02/24/18 11:48 02/24/18 11:48 02/24/18 11:48 02/24/18 11:48 - Medications Medications: Current Medications Acetaminophen (Tylenol 325mg Tab) 650 mg PO Q4 PRN PRN Reason: Fever >100.4 F Last Admin: 02/21/18 14:28 Dose: 325 mg Ciprofloxacin (Cipro 200mg/100ml D5w) 100 mls @ 100 mls/hr IVPB Q12 [facility]BECCA PRN Reason: Protocol Last Admin: 02/24/18 08:24 Dose: 100 mls/hr Levothyroxine Sodium (Synthroid) 75 mcg PO DAILY@0630 [facility] Last Admin: 02/24/18 06:08 Dose: 75 mcg - Labs Labs: 02/23/18 09:24 02/23/18 09:24 PT 28.5 Seconds (9.8-13.1) H D 02/22/18 09:55 INR 2.5 (0.9-1.2) H D 02/22/18 09:55 APTT 37.0 Seconds (25.6-37.1) 02/21/18 04:55 - Constitutional Appears: Non-toxic, Chronically Ill - Head Exam Head Exam: NORMOCEPHALIC - Eye Exam Eye Exam: PERRL - ENT Exam ENT Exam: Mucous Membranes Dry - Neck Exam Neck Exam: absent: Lymphadenopathy - Respiratory Exam Respiratory Exam: Decreased Breath Sounds - Cardiovascular Exam Cardiovascular Exam: REGULAR RHYTHM - GI/Abdominal Exam GI & Abdominal Exam: Distended - Rectal Exam Rectal Exam: Deferred - Exam Exam: NORMAL INSPECTION - Extremities Exam Extremities Exam: absent: Pedal Edema - Back Exam Back Exam: absent: CVA tenderness (L), CVA tenderness (R) - Neurological Exam Neurological Exam: Alert, Awake, Oriented x3 - Psychiatric Exam Psychiatric exam: Normal Mood - Skin Skin Exam: Dry Assessment and Plan (1) Cellulitis of left leg Status: Deleted (2) DVT, lower extremity, distal, chronic Status: Chronic (3) Renal insufficiency Status: Deleted (4) Dehydration Status: Acute - Assessment and Plan (Free Text) Assessment: awake alert ? reaction to cefepime has pseudomonas urine sens to Cipro
--- NOTE | 2018-02-24 15:46 | CT ---
PROCEDURE: CT HEAD WITHOUT CONTRAST. HISTORY: lethargic COMPARISON: 07/08/2017. TECHNIQUE: Axial computed tomography images were obtained through the head/brain without intravenous contrast. Radiation dose: Total exam DLP = 790.28 mGy-cm. This CT exam was performed using one or more of the following dose reduction techniques: Automated exposure control, adjustment of the mA and/or kV according to patient size, and/or use of iterative reconstruction technique. FINDINGS: HEMORRHAGE: No intracranial hemorrhage. BRAIN: Again seen are mild chronic microangiopathic changes. There is no mass, mass effect or abnormal extra-axial fluid collection. 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 VENTRICLES: There is mild global parenchymal volume loss and proportionate enlargement of the cortical sulci. The ventricular dilatation is slightly improved from proportion to the sulcal prominence. CALVARIUM: The skull base and calvarium are normal. PARANASAL SINUSES: Predominantly clear. MASTOID AIR CELLS: Predominantly clear. OTHER FINDINGS: None. IMPRESSION: No acute intracranial abnormality. Mild chronic microangiopathic changes and mild age-related global parenchymal volume loss. 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 The ventricular dilatation is slightly out of proportion to sulcal prominence and normal pressure hydrocephalus is a consideration. Clinical follow-up is advised.
[2018-02-24 16:43] LABS: HEMOGLOBIN 9.7 g/dL (12.0-16.0); MEAN CELL VOLUME 103.4 fl (81.0-99.0); MEAN CORPUSCULAR HEMOGLOBIN 34.4 pg (27.0-31.0); MEAN CORPUSCULAR HGB CONC 33.3 g/dL (33.0-37.0); RBC 2.83 Mil/uL (3.80-5.20); RED CELL DISTRIBUTION WIDTH 14.4 % (11.5-14.5); WHITE BLOOD COUNT 6.4 K/uL (4.8-10.8)
[2018-02-24 16:52] LABS: INR 2.9 (0.9-1.2); PARTIAL THROMBOPLASTIN TIME 42.6 Seconds (25.6-37.1); PROTHROMBIN TIME 32.7 Seconds (9.8-13.1)
[2018-02-24 17:00] LABS: ALB/GLOB RATIO 0.8 (1.0-2.1); ALBUMIN 2.9 g/dL (3.5-5.0); CALCIUM 8.8 mg/dL (8.4-10.2)
--- NOTE | 2018-02-24 17:03 | CP.PCM.PN ---
Subjective - Date & Time of Evaluation Date of Evaluation: 02/24/18 Time of Evaluation: 11:30 - Subjective Subjective: F/U VALERI Patient lethargic earlier, weak , answer simple questions slowly , follows simple commands, poor apetite and poor fluid intake as per nurses Objective - Vital Signs/Intake and Output Vital Signs (last 24 hours): Temp Pulse Resp BP Pulse Ox 98.2 F 76 20 152/77 H 95 02/24/18 15:58 02/24/18 15:58 02/24/18 15:58 02/24/18 15:58 02/24/18 15:58 Intake and Output: 02/24/18 02/24/18 06:59 18:59 Intake Total 1510 Balance 1510 - Medications Medications: Current Medications Acetaminophen (Tylenol 325mg Tab) 650 mg PO Q4 PRN PRN Reason: Fever >100.4 F Last Admin: 02/21/18 14:28 Dose: 325 mg Ciprofloxacin (Cipro 200mg/100ml D5w) 100 mls @ 100 mls/hr IVPB Q12 REBECCA PRN Reason: Protocol Last Admin: 02/24/18 08:24 Dose: 100 mls/hr Dextrose/Sodium Chloride (Dextrose 5%-0.45% Ns 500 Ml) 500 mls @ 100 mls/hr IV .Q5H [facility] Stop: 02/25/18 16:36 Levothyroxine Sodium (Synthroid) 75 mcg PO DAILY@0630 [facility] Last Admin: 02/24/18 06:08 Dose: 75 mcg - Labs Labs: 02/24/18 16:35 02/24/18 16:35 PT 32.7 Seconds (9.8-13.1) H 02/24/18 16:35 INR 2.9 (0.9-1.2) H 02/24/18 16:35 APTT 42.6 Seconds (25.6-37.1) H 02/24/18 16:35 - Constitutional Appears: No Acute Distress, Chronically Ill - Head Exam Head Exam: NORMAL INSPECTION - Eye Exam Eye Exam: PERRL - Neck Exam Neck Exam: Normal Inspection - Respiratory Exam Respiratory Exam: NORMAL BREATHING PATTERN - Cardiovascular Exam Cardiovascular Exam: REGULAR RHYTHM - GI/Abdominal Exam GI & Abdominal Exam: Soft, Normal Bowel Sounds - Extremities Exam Additional comments: Edema b/l L/E, erythema L leg improving. - Back Exam Additional comments: Healing wound R buttock - Neurological Exam Neurological Exam: Alert, Awake, Oriented x3 Additional comments: Weakness - Psychiatric Exam Psychiatric exam: Normal Mood - Skin Skin Exam: Warm Assessment and Plan (1) VALERI (acute kidney injury) Status: Acute (2) Dehydration Status: Acute (3) Multiple myeloma Status: Chronic (4) Hx of cancer of lung Status: Acute (5) DVT, lower extremity, distal, chronic Status: Chronic (6) Hx pulmonary embolism Status: Chronic (7) Cellulitis of left lower extremity Status: Acute (8) Decubitus ulcer of sacral region, stage 1 Status: Resolved (9) Hypothyroidism Status: Chronic - Assessment and Plan (Free Text) Plan: f/u stat CT Head , f/u PT . INR for Coumadin orders, continue rest of treatment
[2018-02-25] MEDS: Levothyroxine 75 MCG TAB PO SCH (06:47)
[2018-02-25] MEDS: Ciprofloxacin 200mg/100ml D5W 100 ML IVPB SCH ×2 (08:31→22:21)
--- NOTE | 2018-02-25 10:24 | CP.PCM.PN ---
Subjective - Date & Time of Evaluation Date of Evaluation: 02/25/18 Time of Evaluation: 10:10 - Subjective Subjective: Alert today. Verbally communicative Objective - Vital Signs/Intake and Output Vital Signs (last 24 hours): Temp Pulse Resp BP Pulse Ox 98.4 F 90 18 152/78 H 98 02/25/18 07:58 02/25/18 07:58 02/25/18 07:58 02/25/18 07:58 02/25/18 07:58 - Medications Medications: Current Medications Acetaminophen (Tylenol 325mg Tab) 650 mg PO Q4 PRN PRN Reason: Fever >100.4 F Last Admin: 02/21/18 14:28 Dose: 325 mg Ciprofloxacin (Cipro 200mg/100ml D5w) 100 mls @ 100 mls/hr IVPB Q12 REBECCA PRN Reason: Protocol Last Admin: 02/25/18 08:31 Dose: 100 mls/hr Dextrose/Sodium Chloride (Dextrose 5%-0.45% Ns 500 Ml) 500 mls @ 100 mls/hr IV .Q5H [facility] Stop: 02/25/18 16:36 Last Admin: 02/25/18 08:32 Dose: 100 mls/hr Levothyroxine Sodium (Synthroid) 75 mcg PO DAILY@0630 [facility] Last Admin: 02/25/18 06:47 Dose: 75 mcg - Labs Labs: 02/24/18 16:35 02/24/18 16:35 PT 32.7 Seconds (9.8-13.1) H 02/24/18 16:35 INR 2.9 (0.9-1.2) H 02/24/18 16:35 APTT 42.6 Seconds (25.6-37.1) H 02/24/18 16:35 - Head Exam Head Exam: ATRAUMATIC, NORMOCEPHALIC - Eye Exam Additional comments: No scleral icterus - ENT Exam ENT Exam: Mucous Membranes Dry - Neck Exam Additional comments: No nuchal rigidity - Respiratory Exam Respiratory Exam: NORMAL BREATHING PATTERN Additional comments: Lungs clear - Cardiovascular Exam Cardiovascular Exam: REGULAR RHYTHM Additional comments: No gallop or rub - GI/Abdominal Exam GI & Abdominal Exam: Soft Additional comments: Nontender - Extremities Exam Additional comments: No edema or cyanosis Assessment and Plan - Assessment and Plan (Free Text) Assessment: ARF. Renal function is improving dehydration. On IVFs Electrolytes normal DVT on coumadin anticoagulation Hx/o Lung Ca ? Mm Plan: Continue with IVFs Continue to monitor renal function
--- NOTE | 2018-02-25 16:02 | CP.PCM.PN ---
Subjective - Date & Time of Evaluation Date of Evaluation: 02/25/18 Time of Evaluation: 15:50 - Subjective Subjective: F/U VALERI Awake , answer questions follows commands , generalized weakness and poor appetite and fluid intake , but it is better today Objective - Vital Signs/Intake and Output Vital Signs (last 24 hours): Temp Pulse Resp BP Pulse Ox 98.1 F 84 20 110/69 98 02/25/18 15:51 02/25/18 15:51 02/25/18 15:51 02/25/18 15:51 02/25/18 15:51 - Medications Medications: Current Medications Acetaminophen (Tylenol 325mg Tab) 650 mg PO Q4 PRN PRN Reason: Fever >100.4 F Last Admin: 02/21/18 14:28 Dose: 325 mg Ciprofloxacin (Cipro 200mg/100ml D5w) 100 mls @ 100 mls/hr IVPB Q12 REBECCA PRN Reason: Protocol Last Admin: 02/25/18 08:31 Dose: 100 mls/hr Dextrose/Sodium Chloride (Dextrose 5%-0.45% Ns 500 Ml) 500 mls @ 100 mls/hr IV .Q5H [facility] Stop: 02/25/18 16:36 Last Admin: 02/25/18 08:32 Dose: 100 mls/hr Levothyroxine Sodium (Synthroid) 75 mcg PO DAILY@0630 [facility] Last Admin: 02/25/18 06:47 Dose: 75 mcg - Labs Labs: 02/24/18 16:35 02/24/18 16:35 PT 32.7 Seconds (9.8-13.1) H 02/24/18 16:35 INR 2.9 (0.9-1.2) H 02/24/18 16:35 APTT 42.6 Seconds (25.6-37.1) H 02/24/18 16:35 - Constitutional Appears: Chronically Ill - Head Exam Head Exam: NORMAL INSPECTION - Eye Exam Eye Exam: PERRL - ENT Exam ENT Exam: Normal Exam - Neck Exam Neck Exam: Normal Inspection - Respiratory Exam Respiratory Exam: NORMAL BREATHING PATTERN - Cardiovascular Exam Cardiovascular Exam: REGULAR RHYTHM - GI/Abdominal Exam GI & Abdominal Exam: Soft, Normal Bowel Sounds - Extremities Exam Additional comments: Erythema left leg improved, edema B/L L/E. - Back Exam Additional comments: Healing wound R buttock - Neurological Exam Neurological Exam: Alert, CN II-XII Intact, Oriented x3 Additional comments: Weakness, follows commands. - Psychiatric Exam Psychiatric exam: Normal Mood - Skin Skin Exam: Warm Assessment and Plan (1) VALERI (acute kidney injury) Status: Acute (2) Dehydration Status: Acute (3) Multiple myeloma Status: Chronic (4) Hx of cancer of lung Status: Acute (5) DVT, lower extremity, distal, chronic Status: Chronic (6) Hx pulmonary embolism Status: Chronic (7) Cellulitis of left lower extremity Status: Acute (8) Decubitus ulcer of sacral region, stage 1 Status: Resolved (9) Hypothyroidism Status: Chronic - Assessment and Plan (Free Text) Plan: CT Head no acute intracraneal abnormality , Patient Neurological status improved , still generalized weakness requiring library services assistant for OOB, skin rash improved , had allergic reaction to Cefepime , on Cipro for UTI , VALERI improved , continue rest of treatment
[2018-02-25 16:35] LABS: PROTHROMBIN TIME 41.2 Seconds (9.8-13.1)
[2018-02-25 16:36] LABS: INR 3.6 (0.9-1.2)
[2018-02-26] MEDS: Levothyroxine 75 MCG TAB PO SCH (06:13)
[2018-02-26] MEDS: Ciprofloxacin 200mg/100ml D5W 100 ML IVPB SCH ×2 (10:01→21:36)
--- NOTE | 2018-02-26 10:14 | US ---
HISTORY: elevated LFT's COMPARISON: None. TECHNIQUE: Grayscale imaging was performed. FINDINGS: LIVER: Measures 15.5 cm in length. There is diffuse increased echogenicity of the liver parenchyma. No mass. No intrahepatic bile duct dilatation. GALLBLADDER: The gallbladder is distended and there is mild wall thickening and trace pericholecystic fluid along the anterior wall. No gallstones. COMMON BILE DUCT: Measures 5.7 mm. No stones. No dilatation. PANCREAS: Unremarkable as visualized. No mass. No ductal dilatation. RIGHT KIDNEY: Measures 9.2 cm in length. Normal echogenicity. No calculus, mass, or hydronephrosis. AORTA: No aneurysmal dilatation. IVC: Unremarkable. OTHER FINDINGS: None . IMPRESSION: 1. Distended gallbladder with wall thickening and pericholecystic fluid may represent acalculous cholecystitis in the appropriate clinical setting. Clinical follow-up is advised. 2. No cholelithiasis or biliary dilatation. 3. Diffuse increased echogenicity in the liver may reflect hepatic steatosis however parenchymal infectious/ inflammatory etiologies cannot be entirely excluded. Clinical and laboratory correlation is advised.
--- NOTE | 2018-02-26 11:05 | CP.PCM.CON ---
History of Present Illness - History of Present Illness History of Present Illness: 82 year old female with a history of chronic DVT ? on anticoagulation, breast cancer, lung cancer, ?multiple myeloma, admitted with dehydration, VALERI, failure to thrive, with coagulopathy. The patient notes to being diagnosed with breast and lung cancer several years ago that were treated with surger at [facility] She denies chemotherapy or radiotherapy. She reports to not eating and drinking well. It is difficult to obtain further history as the patient is drowsy. Past medical history: chronic DVT, lung cancer, breast cancer, ?multiple myeloma Past surgical history: breast and lung surgery Family history: ?mother with cancer Social history: Denies tobacco, alcohol, and illicit drug use. Allergies: Cefepime Review of systems: All remaining review of systems including HEENT, cardiovascular, respiratory, gastrointestinal, genitourinary, musculoskeletal, dermatologic, neurologic, and psychiatric are negative unless mentioned in the HPI. Past Patient History - Infectious Disease Hx of Infectious Diseases: None - Tetanus Immunizations Tetanus Immunization: Unknown - Past Medical History & Family History Past Medical History?: Yes - Past Social History Smoking Status: Never Smoked Alcohol: None Drugs: Denies Home Situation {Lives}: With Family - CARDIAC Hx Cardiac Disorders: Yes Hx Atrial Fibrillation: Yes Hx Hypercholesterolemia: Yes Hx Hypertension: Yes - PULMONARY Hx Respiratory Disorders: Yes Hx Lung Cancer: Yes Hx Pulmonary Embolism: Yes - NEUROLOGICAL Hx Neurological Disorder: Yes Hx Syncope: Yes - HEENT Hx HEENT Problems: No - RENAL Hx Chronic Kidney Disease: No - ENDOCRINE/METABOLIC Hx Endocrine Disorders: Yes Hx Hypothyroidism: Yes - HEMATOLOGICAL/ONCOLOGICAL Hx Blood Disorders: Yes Hx Anemia: Yes Hx Cancer: Yes (breast ca with lumpectomy) Hx Human Immunodeficiency Virus (HIV): No - INTEGUMENTARY Hx Dermatological Problems: No - MUSCULOSKELETAL/RHEUMATOLOGICAL Hx Musculoskeletal Disorders: Yes Hx Falls: Yes Hx Rheumatoid Arthritis: Yes - GASTROINTESTINAL Hx Gastrointestinal Disorders: No - GENITOURINARY/GYNECOLOGICAL Hx Genitourinary Disorders: No - PSYCHIATRIC Hx Psychophysiologic Disorder: No Hx Substance Use: No - SURGICAL HISTORY Hx Surgeries: Yes Hx Hysterectomy: Yes Hx Parathyroidectomy: Yes Hx Thyroidectomy: Yes Other/Comment: Hx of Lumpectomy for Breast Ca, Pt did not have RT or Chemoterapy Rx, Pt has Hx of Vaginal Pessary. - ANESTHESIA Hx Anesthesia: Yes Hx Anesthesia Reactions: No Hx Malignant Hyperthermia: No Meds Allergies/Adverse Reactions: Allergies Allergy/AdvReac Type Severity Reaction Status Date / Time cefepime [From Maxipime] Allergy Mild RASH Verified 02/23/18 19:01 - Medications Medications: Current Medications Acetaminophen (Tylenol 325mg Tab) 650 mg PO Q4 PRN PRN Reason: Fever >100.4 F Last Admin: 02/21/18 14:28 Dose: 325 mg Ciprofloxacin (Cipro 200mg/100ml D5w) 100 mls @ 100 mls/hr IVPB Q12 REBECCA PRN Reason: Protocol Last Admin: 02/26/18 10:01 Dose: 100 mls/hr Levothyroxine Sodium (Synthroid) 75 mcg PO DAILY@0630 [facility] Last Admin: 02/26/18 06:13 Dose: 75 mcg Physical Exam - Head Exam Head Exam: ATRAUMATIC - Eye Exam Eye Exam: Normal appearance - ENT Exam ENT Exam: Mucous Membranes Dry - Respiratory Exam Respiratory Exam: NORMAL BREATHING PATTERN - Cardiovascular Exam Cardiovascular Exam: +S1, +S2 - GI/Abdominal Exam GI & Abdominal Exam: Normal Bowel Sounds - Neurological Exam Neurological exam: Oriented x3 - Psychiatric Exam Psychiatric exam: Normal Affect, Normal Mood Results - Vital Signs Recent Vital Signs: Last Vital Signs Temp 98.1 F 02/26/18 08:00 Pulse 71 02/26/18 08:00 Resp 18 02/26/18 08:00 BP 136/74 02/26/18 08:00 Pulse Ox 95 02/26/18 08:00 - Labs Result Diagrams: 02/26/18 10:45 02/26/18 10:45 Labs: Laboratory Results - last 24 hr 02/25/18 15:37 PT 41.2 H* INR 3.6 H Assessment & Plan - Assessment and Plan (Free Text) Assessment: 1. Coagulopathy - nutritional ?coumadin - no evidence of bleeding 2. Anemia - will check retic count, b12, folate, ferritin, FOBT to further characterize 3. Hx of breast cancer, lung cancer, ?multiple myeloma - will add breast cancer tumor marker - monoclonal protein evaluation - consider restaging imaging once renal function improved Thank you for this interesting consult.
[2018-02-26 11:11] LABS: HEMOGLOBIN 9.2 g/dL (12.0-16.0); MEAN CORPUSCULAR HEMOGLOBIN 35.2 pg (27.0-31.0); MEAN CORPUSCULAR HGB CONC 34.2 g/dL (33.0-37.0); RBC 2.62 Mil/uL (3.80-5.20); RED CELL DISTRIBUTION WIDTH 14.2 % (11.5-14.5); WHITE BLOOD COUNT 10.2 K/uL (4.8-10.8)
[2018-02-26 11:23] LABS: ALB/GLOB RATIO 0.8 (1.0-2.1); ALBUMIN 2.7 g/dL (3.5-5.0); ALT/SGPT 113 U/L (9-52); AST/SGOT 196 U/L (14-36); BLOOD UREA NITROGEN 23 mg/dl (7-17); CALCIUM 8.3 mg/dL (8.4-10.2); GFR AFRICAN-AMERICAN > 60; GFR NON-AFRICAN AMERICAN 53
[2018-02-26 11:26] LABS: INR 2.1 (0.9-1.2); PROTHROMBIN TIME 23.1 Seconds (9.8-13.1)
--- NOTE | 2018-02-26 12:26 | CP.PCM.CON ---
History of Present Illness - History of Present Illness History of Present Illness: General Surgery Consult Note 82F with PMHx of Anemia, A Fib, DVT, HTN, Hypercholesterolemia, Hypothyroidism, Malignancy (Lung CA; multipe myeloma, breast cancer with lumpectomy), PE, RA seen at bedside after consultation for increased LFTs with pericholycystic fluid and distention of gall bladder. Patient is AAO x 3 at time of visit. She has trouble communicating verbally but demonstrates good understanding of all questions asked. Patient denies any pain to her RUQ. She denies any recent nausea or vomiting and states that she has been tolerating her diet. Denies any recent N/V/F/C/CP/D Meds: See MAR All: Cefepime PSH: Hysterectomy, parathyroidectomy, thyroidectomy, lumpectomy for breast CA FHx: Non-contributory SHx: Denies tobacco use, EtOH and illicits drugs Review of Systems - Review of Systems All systems: reviewed and no additional remarkable complaints except Review of Systems: as per HPI Past Patient History - Infectious Disease Hx of Infectious Diseases: None - Tetanus Immunizations Tetanus Immunization: Unknown - Past Medical History & Family History Past Medical History?: Yes - Past Social History Smoking Status: Never Smoked Alcohol: None Drugs: Denies Home Situation {Lives}: With Family - CARDIAC Hx Cardiac Disorders: Yes Hx Atrial Fibrillation: Yes Hx Hypercholesterolemia: Yes Hx Hypertension: Yes - PULMONARY Hx Respiratory Disorders: Yes Hx Lung Cancer: Yes Hx Pulmonary Embolism: Yes - NEUROLOGICAL Hx Neurological Disorder: Yes Hx Syncope: Yes - HEENT Hx HEENT Problems: No - RENAL Hx Chronic Kidney Disease: No - ENDOCRINE/METABOLIC Hx Endocrine Disorders: Yes Hx Hypothyroidism: Yes - HEMATOLOGICAL/ONCOLOGICAL Hx Blood Disorders: Yes Hx Anemia: Yes Hx Cancer: Yes (breast ca with lumpectomy) Hx Human Immunodeficiency Virus (HIV): No - INTEGUMENTARY Hx Dermatological Problems: No - MUSCULOSKELETAL/RHEUMATOLOGICAL Hx Musculoskeletal Disorders: Yes Hx Falls: Yes Hx Rheumatoid Arthritis: Yes - GASTROINTESTINAL Hx Gastrointestinal Disorders: No - GENITOURINARY/GYNECOLOGICAL Hx Genitourinary Disorders: No - PSYCHIATRIC Hx Psychophysiologic Disorder: No Hx Substance Use: No - SURGICAL HISTORY Hx Surgeries: Yes Hx Hysterectomy: Yes Hx Parathyroidectomy: Yes Hx Thyroidectomy: Yes Other/Comment: Hx of Lumpectomy for Breast Ca, Pt did not have RT or Chemoterapy Rx, Pt has Hx of Vaginal Pessary. - ANESTHESIA Hx Anesthesia: Yes Hx Anesthesia Reactions: No Hx Malignant Hyperthermia: No Meds Allergies/Adverse Reactions: Allergies Allergy/AdvReac Type Severity Reaction Status Date / Time cefepime [From Maxipime] Allergy Mild RASH Verified 02/23/18 19:01 - Medications Medications: Current Medications Acetaminophen (Tylenol 325mg Tab) 650 mg PO Q4 PRN PRN Reason: Fever >100.4 F Last Admin: 02/21/18 14:28 Dose: 325 mg Ciprofloxacin (Cipro 200mg/100ml D5w) 100 mls @ 100 mls/hr IVPB Q12 REBECCA PRN Reason: Protocol Last Admin: 02/26/18 10:01 Dose: 100 mls/hr Levothyroxine Sodium (Synthroid) 75 mcg PO DAILY@0630 [facility] Last Admin: 02/26/18 06:13 Dose: 75 mcg Physical Exam - Constitutional Appears: Well, Non-toxic, No Acute Distress - Head Exam Head Exam: ATRAUMATIC, NORMOCEPHALIC - Eye Exam Eye Exam: EOMI, PERRL Pupil Exam: NORMAL ACCOMODATION, PERRL - ENT Exam ENT Exam: Mucous Membranes Moist, Normal Exam - Neck Exam Neck exam: Positive for: Full Rom, Normal Inspection - GI/Abdominal Exam GI & Abdominal Exam: Soft. absent: Distended, Firm, Guarding, Rebound, Rigid, Tenderness Additional comments: No tenderness with palpation to RUQ - Extremities Exam Extremities exam: Positive for: normal capillary refill, pedal pulses present - Back Exam Back exam: absent: CVA tenderness (L), CVA tenderness (R) - Neurological Exam Neurological exam: Alert, Oriented x3 - Psychiatric Exam Psychiatric exam: Normal Affect, Normal Mood - Skin Skin Exam: Intact, Normal Color Results - Vital Signs Recent Vital Signs: Last Vital Signs Temp 98.1 F 02/26/18 08:00 Pulse 71 02/26/18 08:00 Resp 18 02/26/18 08:00 BP 136/74 02/26/18 08:00 Pulse Ox 95 02/26/18 08:00 - Labs Result Diagrams: 02/27/18 04:25 02/27/18 04:25 Labs: Laboratory Results - last 24 hr 02/25/18 02/26/18 02/26/18 15:37 10:45 10:45 WBC 10.2 D RBC 2.62 L Hgb 9.2 L Hct 27.0 L MCV 103.0 H MCH 35.2 H MCHC 34.2 RDW 14.2 Plt Count 140 PT 41.2 H* 23.1 H D INR 3.6 H 2.1 H D Sodium Potassium Chloride Carbon Dioxide Anion Gap BUN Creatinine Est GFR ( Amer) Est GFR (Non-Af Amer) Random Glucose Calcium Total Bilirubin AST ALT Alkaline Phosphatase Total Protein Albumin Globulin Albumin/Globulin Ratio 02/26/18 10:45 WBC RBC Hgb Hct MCV MCH MCHC RDW Plt Count PT INR Sodium 139 Potassium 3.3 L Chloride 101 Carbon Dioxide 28 Anion Gap 13 BUN 23 H Creatinine 1.0 Est GFR ( Amer) > 60 Est GFR (Non-Af Amer) 53 Random Glucose 110 H Calcium 8.3 L Total Bilirubin 0.5 AST 196 H D ALT 113 H D Alkaline Phosphatase 105 Total Protein 6.2 L Albumin 2.7 L Globulin 3.5 Albumin/Globulin Ratio 0.8 L Assessment & Plan - Assessment and Plan (Free Text) Assessment: 82F seen at bedside after consultation for increased LFTs with pericholycystic fluid and distention of gall bladder Plan: Afebrile, absent leukocytosis Abx AST/ALT - 196/113 Abd US: Distended GB w/ wall thickening and pericholecystic fluid possibly representing acalculous cholecystitis. No cholelithiasis or biliary dilatation. Diffuse increased echogenicity of liver possibly reflecting hepatic steatosis Continue diet No plan for surgical intervention at this time Follow up GI recs Will f/u with Dr. Dunn for further recs - Date & Time Date: 02/26/18 Time: 12:36
--- NOTE | 2018-02-26 13:37 | CP.PCM.PN ---
Subjective - Date & Time of Evaluation Date of Evaluation: 02/26/18 Time of Evaluation: 01:20 - Subjective Subjective: Pt remains lethargic. Arousable to physical stimuli. Objective - Vital Signs/Intake and Output Vital Signs (last 24 hours): Temp Pulse Resp BP Pulse Ox 98.3 F 66 18 120/70 96 02/26/18 12:23 02/26/18 12:23 02/26/18 12:23 02/26/18 12:23 02/26/18 12:23 - Medications Medications: Current Medications Acetaminophen (Tylenol 325mg Tab) 650 mg PO Q4 PRN PRN Reason: Fever >100.4 F Last Admin: 02/21/18 14:28 Dose: 325 mg Ciprofloxacin (Cipro 200mg/100ml D5w) 100 mls @ 100 mls/hr IVPB Q12 REBECCA PRN Reason: Protocol Last Admin: 02/26/18 10:01 Dose: 100 mls/hr Levothyroxine Sodium (Synthroid) 75 mcg PO DAILY@0630 [facility] Last Admin: 02/26/18 06:13 Dose: 75 mcg - Labs Labs: 02/26/18 10:45 02/26/18 10:45 PT 23.1 Seconds (9.8-13.1) H D 02/26/18 10:45 INR 2.1 (0.9-1.2) H D 02/26/18 10:45 APTT 42.6 Seconds (25.6-37.1) H 02/24/18 16:35 - Eye Exam Additional comments: No scleral icterus - Neck Exam Additional comments: Thyroid not palp - Respiratory Exam Respiratory Exam: NORMAL BREATHING PATTERN Additional comments: Lungs clear - Cardiovascular Exam Cardiovascular Exam: REGULAR RHYTHM Additional comments: No gallops - GI/Abdominal Exam GI & Abdominal Exam: Soft Additional comments: No tenderness - Rectal Exam Rectal Exam: Deferred - Extremities Exam Additional comments: No edema or cyanosis Assessment and Plan - Assessment and Plan (Free Text) Assessment: VALERI resolved. Creatinine remains stable Intermittent lethargy UTI Pseudomonas detected in urine. Transaminesemia improving Hypothyroidism Hx/o DVT & PE Hx/o Lung Ca, MM & Rheumatoid arthritis Plan: Monitor renal function . Currently treated with Cipro. F/b ID
--- NOTE | 2018-02-26 13:55 | CP.PCM.CON ---
<Gaurav Fontana - Last Filed: 02/26/18 13:53> History of Present Illness - History of Present Illness History of Present Illness: PGY5 GI Fellow Consult Note Patient is an 82yo female with PMHx significant for multiple malignancies ( breast cancer s/p lumpectomy, lung cancer s/p lobectomy, multiple myeloma), anemia, chronic left LE DVT on Coumadin (currently held), atrial fibrillation, HTN, dyslipidemia and acquired hypothyroidism s/p thyroidectomy who presented to the hospital with generalized malaise and weakness. Presently, she is delirious and unable to answer any questions about her medical care or history and cannot tell me where we currently are. Since admission, she has been diagnosed and treated for azotemia and VALERI, LLE cellulitis. Our service has been consulted to evaluate the patients elevated LFTs. Reviewing lab work and imaging, patient has had elevated LFTs in hepatocellular pattern dating back to October 2014. On review, she has suffered a 50lb weight loss dating back to November 2014. She denies any history of liver disease and claims she does not use alcohol regularly. This is not noted on her history in our EMR. An U/S was performed revealing mild gallbladder wall thickening and pericholecystic fluid, relative unchanged from CT performed in 2015. The patient does not endorse any complaints at present. 12 system ROS is limited given altered mentation PMHx: See HPI PSHx: Hysterectomy, parathyroidectomy, thyroidectomy, RUL lobectomy for lung cancer, lumpectomy for breast CA FHx: Unable to assess presently, none per EMR Social: Denies tobacco, EtOH or illicit drug use Endo: No prior studies noted for evaluation Past Patient History - Infectious Disease Hx of Infectious Diseases: None - Tetanus Immunizations Tetanus Immunization: Unknown - Past Medical History & Family History Past Medical History?: Yes - Past Social History Smoking Status: Never Smoked Alcohol: None Drugs: Denies Home Situation {Lives}: With Family - CARDIAC Hx Cardiac Disorders: Yes Hx Atrial Fibrillation: Yes Hx Hypercholesterolemia: Yes Hx Hypertension: Yes - PULMONARY Hx Respiratory Disorders: Yes Hx Lung Cancer: Yes Hx Pulmonary Embolism: Yes - NEUROLOGICAL Hx Neurological Disorder: Yes Hx Syncope: Yes - HEENT Hx HEENT Problems: No - RENAL Hx Chronic Kidney Disease: No - ENDOCRINE/METABOLIC Hx Endocrine Disorders: Yes Hx Hypothyroidism: Yes - HEMATOLOGICAL/ONCOLOGICAL Hx Blood Disorders: Yes Hx Anemia: Yes Hx Cancer: Yes (breast ca with lumpectomy) Hx Human Immunodeficiency Virus (HIV): No - INTEGUMENTARY Hx Dermatological Problems: No - MUSCULOSKELETAL/RHEUMATOLOGICAL Hx Musculoskeletal Disorders: Yes Hx Falls: Yes Hx Rheumatoid Arthritis: Yes - GASTROINTESTINAL Hx Gastrointestinal Disorders: No - GENITOURINARY/GYNECOLOGICAL Hx Genitourinary Disorders: No - PSYCHIATRIC Hx Psychophysiologic Disorder: No Hx Substance Use: No - SURGICAL HISTORY Hx Surgeries: Yes Hx Hysterectomy: Yes Hx Parathyroidectomy: Yes Hx Thyroidectomy: Yes Other/Comment: Hx of Lumpectomy for Breast Ca, Pt did not have RT or Chemoterapy Rx, Pt has Hx of Vaginal Pessary. - ANESTHESIA Hx Anesthesia: Yes Hx Anesthesia Reactions: No Hx Malignant Hyperthermia: No Meds Allergies/Adverse Reactions: Allergies Allergy/AdvReac Type Severity Reaction Status Date / Time cefepime [From Maxipime] Allergy Mild RASH Verified 02/23/18 19:01 - Medications Medications: Current Medications Acetaminophen (Tylenol 325mg Tab) 650 mg PO Q4 PRN PRN Reason: Fever >100.4 F Last Admin: 02/21/18 14:28 Dose: 325 mg Ciprofloxacin (Cipro 200mg/100ml D5w) 100 mls @ 100 mls/hr IVPB Q12 [facility] PRN Reason: Protocol Last Admin: 02/26/18 10:01 Dose: 100 mls/hr Levothyroxine Sodium (Synthroid) 75 mcg PO DAILY@0630 [facility] Last Admin: 02/26/18 06:13 Dose: 75 mcg Physical Exam - Constitutional Appears: No Acute Distress, Confused - Eye Exam Eye Exam: EOMI, PERRL - ENT Exam ENT Exam: Mucous Membranes Dry Additional comments: evidence of oropharyngeal thrush - Respiratory Exam Respiratory Exam: Clear to Auscultation Bilateral. absent: Rales, Rhonchi, Wheezes - Cardiovascular Exam Cardiovascular Exam: RRR, +S1, +S2 - GI/Abdominal Exam GI & Abdominal Exam: Normal Bowel Sounds, Soft. absent: Distended, Firm, Guarding, Organomegaly, Rigid, Tenderness - Extremities Exam Extremities exam: Negative for: pedal edema - Neurological Exam Neurological exam: Altered Additional comments: intention/resting tremor in hands - Psychiatric Exam Psychiatric exam: Anxious, Depressed - Skin Skin Exam: Dry, Warm Results - Vital Signs Recent Vital Signs: Last Vital Signs Temp 98.3 F 02/26/18 12:23 Pulse 66 02/26/18 12:23 Resp 18 02/26/18 12:23 BP 120/70 02/26/18 12:23 Pulse Ox 96 02/26/18 12:23 - Labs Result Diagrams: 02/26/18 10:45 02/26/18 10:45 Labs: Laboratory Results - last 24 hr 02/25/18 02/26/18 02/26/18 15:37 10:45 10:45 WBC 10.2 D RBC 2.62 L Hgb 9.2 L Hct 27.0 L MCV 103.0 H MCH 35.2 H MCHC 34.2 RDW 14.2 Plt Count 140 PT 41.2 H* 23.1 H D INR 3.6 H 2.1 H D Sodium Potassium Chloride Carbon Dioxide Anion Gap BUN Creatinine Est GFR ( Amer) Est GFR (Non-Af Amer) Random Glucose Calcium Total Bilirubin AST ALT Alkaline Phosphatase Total Protein Albumin Globulin Albumin/Globulin Ratio 02/26/18 10:45 WBC RBC Hgb Hct MCV MCH MCHC RDW Plt Count PT INR Sodium 139 Potassium 3.3 L Chloride 101 Carbon Dioxide 28 Anion Gap 13 BUN 23 H Creatinine 1.0 Est GFR ( Amer) > 60 Est GFR (Non-Af Amer) 53 Random Glucose 110 H Calcium 8.3 L Total Bilirubin 0.5 AST 196 H D ALT 113 H D Alkaline Phosphatase 105 Total Protein 6.2 L Albumin 2.7 L Globulin 3.5 Albumin/Globulin Ratio 0.8 L Assessment & Plan - Assessment and Plan (Free Text) Assessment: Patient is an 82yo female with PMHx significant for multiple malignancies ( breast cancer s/p lumpectomy, lung cancer, multiple myeloma), anemia, chronic left LE DVT on Coumadin (currently held), atrial fibrillation, HTN, dyslipidemia and acquired hypothyroidism s/p thyroidectomy who presented to the hospital with generalized malaise and weakness. Our service is consulted to evaluate patients elevated LFTs. -Elevated LFTs, heaptic steatosis -Failure to thrive - 50lb weight loss over 3 years; R/O nutritional deficiencies -Coagulopthy - Coumadin held -Altered mental status/delirium -Oropharyngeal thrush Plan: -Recommend evaluation for nutritional deficiencies given weight loss, poor intake and presentation with azotemia suggestive of poor intake prior to arrival -Check B12/Folate, Magnesium, Vitamin D -Coumadin held, supplement Vitamin K -Do not suspect acalculous cholecystitis given absence of critical illness, abdominal pain and lab work not currently suggestive of diagnosis -LFTs may be related to hepatic steatosis as has been documented on prior imaging -Check autoimmune markers: MILLY, AMA, ASMA, IgG, IgM -Check hepatitis serologies -Consider nutrition consultation -Start Nystatin swish and swallow Case discussed with Dr Urias - Date & Time Date: 02/26/18 Time: 13:25 <Sarmad Urias - Last Filed: 02/26/18 20:11> Meds - Medications Medications: Current Medications Acetaminophen (Tylenol 325mg Tab) 650 mg PO Q4 PRN PRN Reason: Fever >100.4 F Last Admin: 02/21/18 14:28 Dose: 325 mg Ciprofloxacin (Cipro 200mg/100ml D5w) 100 mls @ 100 mls/hr IVPB Q12 [facility] PRN Reason: Protocol Last Admin: 02/26/18 10:01 Dose: 100 mls/hr Levothyroxine Sodium (Synthroid) 75 mcg PO DAILY@0630 [facility] Last Admin: 02/26/18 06:13 Dose: 75 mcg Nystatin (Nystatin Oral Susp) 5 ml PO QID [facility] Stop: 03/05/18 17:01 Last Admin: 02/26/18 17:52 Dose: 5 ml Results - Vital Signs Recent Vital Signs: Last Vital Signs Temp 98.0 F 02/26/18 15:51 Pulse 78 02/26/18 15:51 Resp 16 02/26/18 15:51 BP 125/74 02/26/18 15:51 Pulse Ox 100 02/26/18 15:51 - Labs Result Diagrams: 02/26/18 10:45 02/26/18 10:45 Labs: Laboratory Results - last 24 hr 02/26/18 02/26/18 02/26/18 10:45 10:45 10:45 WBC 10.2 D RBC 2.62 L Hgb 9.2 L Hct 27.0 L MCV 103.0 H MCH 35.2 H MCHC 34.2 RDW 14.2 Plt Count 140 PT 23.1 H D INR 2.1 H D Sodium 139 Potassium 3.3 L Chloride 101 Carbon Dioxide 28 Anion Gap 13 BUN 23 H Creatinine 1.0 Est GFR ( Amer) > 60 Est GFR (Non-Af Amer) 53 Random Glucose 110 H Calcium 8.3 L Phosphorus Magnesium Total Bilirubin 0.5 AST 196 H D ALT 113 H D Alkaline Phosphatase 105 Total Protein 6.2 L Albumin 2.7 L Globulin 3.5 Albumin/Globulin Ratio 0.8 L Vitamin B12 Hepatitis A IgM Ab Hep Bs Antigen Hep B Core IgM Ab Hepatitis C Antibody 02/26/18 02/26/18 12:54 15:11 WBC RBC Hgb Hct MCV MCH MCHC RDW Plt Count PT INR Sodium Potassium Chloride Carbon Dioxide Anion Gap BUN Creatinine Est GFR ( Amer) Est GFR (Non-Af Amer) Random Glucose Calcium Phosphorus 2.1 L Magnesium 1.7 Total Bilirubin AST ALT Alkaline Phosphatase Total Protein Albumin Globulin Albumin/Globulin Ratio Vitamin B12 > 1000 H Hepatitis A IgM Ab Negative Hep Bs Antigen Negative Hep B Core IgM Ab Negative Hepatitis C Antibody Negative Assessment & Plan - Assessment and Plan (Free Text) Plan: I agree with above evaluation
--- NOTE | 2018-02-26 16:33 | CP.PCM.PN ---
Subjective - Date & Time of Evaluation Date of Evaluation: 02/26/18 Time of Evaluation: 13:00 - Subjective Subjective: F/U VALERI Pt awake, answer questions, no specific complaint. Objective - Vital Signs/Intake and Output Vital Signs (last 24 hours): Temp Pulse Resp BP Pulse Ox 98.0 F 78 16 125/74 100 02/26/18 15:51 02/26/18 15:51 02/26/18 15:51 02/26/18 15:51 02/26/18 15:51 - Medications Medications: Current Medications Acetaminophen (Tylenol 325mg Tab) 650 mg PO Q4 PRN PRN Reason: Fever >100.4 F Last Admin: 02/21/18 14:28 Dose: 325 mg Ciprofloxacin (Cipro 200mg/100ml D5w) 100 mls @ 100 mls/hr IVPB Q12 [facility] PRN Reason: Protocol Last Admin: 02/26/18 10:01 Dose: 100 mls/hr Levothyroxine Sodium (Synthroid) 75 mcg PO DAILY@0630 [facility] Last Admin: 02/26/18 06:13 Dose: 75 mcg Nystatin (Nystatin Oral Susp) 5 ml PO QID [facility] Stop: 03/05/18 17:01 - Labs Labs: 02/26/18 10:45 02/26/18 10:45 PT 23.1 Seconds (9.8-13.1) H D 02/26/18 10:45 INR 2.1 (0.9-1.2) H D 02/26/18 10:45 APTT 42.6 Seconds (25.6-37.1) H 02/24/18 16:35 - Constitutional Appears: No Acute Distress, Chronically Ill - Head Exam Head Exam: NORMAL INSPECTION - Eye Exam Eye Exam: PERRL - ENT Exam ENT Exam: Normal Exam - Neck Exam Neck Exam: Normal Inspection - Respiratory Exam Respiratory Exam: NORMAL BREATHING PATTERN - Cardiovascular Exam Cardiovascular Exam: REGULAR RHYTHM - GI/Abdominal Exam GI & Abdominal Exam: Soft, Normal Bowel Sounds - Extremities Exam Additional comments: Edema b/l L/E, erythema L leg improving. - Back Exam Additional comments: Healing wound R buttock - Neurological Exam Neurological Exam: Alert, CN II-XII Intact, Oriented x3 Additional comments: Weakness, answer questions, follows commands - Psychiatric Exam Psychiatric exam: Normal Mood - Skin Skin Exam: Warm Assessment and Plan (1) VALERI (acute kidney injury) Status: Acute (2) Dehydration Status: Acute (3) Multiple myeloma Status: Chronic (4) Hx of cancer of lung Status: Acute (5) DVT, lower extremity, distal, chronic Status: Chronic (6) Hx pulmonary embolism Status: Chronic (7) Cellulitis of left lower extremity Status: Acute (8) Decubitus ulcer of sacral region, stage 1 Status: Resolved (9) Hypothyroidism Status: Chronic - Assessment and Plan (Free Text) Plan: elevated liver enzymes today, abdomen U-S showed distended Gallbladder, increased echogenicity in the liver, f/u HIDA scan, GI consult, Surgery consult.
[2018-02-26] MEDS ORDERED: Potassium Chloride 20 mEq ER Tab PO STA (16:36)
[2018-02-26 16:57] LABS: HEPATITIS B SURFACE AG Negative (NEGATIVE)
[2018-02-26 17:03] LABS: HEPATITIS A IGM NEGATIVE (NEGATIVE); HEPATITIS B CORE AB NEGATIVE (NEGATIVE)
[2018-02-26 17:15] LABS: HEPATITIS C ANTIBODY NEGATIVE (NEGATIVE)
[2018-02-26] MEDS: Nystatin 100,000 Units/ml Oral Susp 5 ml UD PO SCH ×2 (17:52→21:38)
[2018-02-26 20:29] LABS: IMMUNOGLOBULIN G 1914.9 mg/dL (700.0-1600.0)
[2018-02-26 20:31] LABS: IMMUNOGLOBULIN M < 25.0 mg/dL (40.0-230.0)
[2018-02-27 05:52] LABS: HEMOGLOBIN 9.3 g/dL (12.0-16.0); MEAN CELL VOLUME 102.9 fl (81.0-99.0); RBC 2.65 Mil/uL (3.80-5.20); RED CELL DISTRIBUTION WIDTH 14.1 % (11.5-14.5); WHITE BLOOD COUNT 10.6 K/uL (4.8-10.8)
[2018-02-27 05:58] LABS: ALB/GLOB RATIO 0.8 (1.0-2.1); ALT/SGPT 113 U/L (9-52); AST/SGOT 171 U/L (14-36); BLOOD UREA NITROGEN 19 mg/dl (7-17); CALCIUM 8.4 mg/dL (8.4-10.2); GFR AFRICAN-AMERICAN > 60; GFR NON-AFRICAN AMERICAN 53
[2018-02-27 06:00] LABS: INR 1.9 (0.9-1.2); PROTHROMBIN TIME 21.4 Seconds (9.8-13.1)
[2018-02-27] MEDS: Levothyroxine 75 MCG TAB PO SCH (06:36)
--- NOTE | 2018-02-27 08:13 | CP.PCM.PN ---
Subjective - Date & Time of Evaluation Date of Evaluation: 02/27/18 Time of Evaluation: 08:00 - Subjective Subjective: PGY5 GI Fellow Progress Note Patient seen and examined bedside this morning. She was resting comfortably upon me entering the room. Denies any issues overnight. States she is feeling better. Still having difficulty answering most questions, confused. 12 system ROS performed and limited given altered mentation. Objective - Vital Signs/Intake and Output Vital Signs (last 24 hours): Temp Pulse Resp BP Pulse Ox 97.9 F 84 18 154/78 H 97 02/27/18 07:47 02/27/18 07:47 02/27/18 07:47 02/27/18 07:47 02/27/18 07:47 Intake and Output: 02/27/18 02/27/18 06:59 18:59 Intake Total 960 Balance 960 - Medications Medications: Current Medications Acetaminophen (Tylenol 325mg Tab) 650 mg PO Q4 PRN PRN Reason: Fever >100.4 F Last Admin: 02/21/18 14:28 Dose: 325 mg Acetaminophen (Tylenol 325mg Tab) 650 mg PO Q4 PRN PRN Reason: Pain, moderate (4-7) Last Admin: 02/27/18 01:53 Dose: 650 mg Ciprofloxacin (Cipro 200mg/100ml D5w) 100 mls @ 100 mls/hr IVPB Q12 [facility] PRN Reason: Protocol Last Admin: 02/26/18 21:36 Dose: 100 mls/hr Levothyroxine Sodium (Synthroid) 75 mcg PO DAILY@0630 [facility] Last Admin: 02/27/18 06:36 Dose: 75 mcg Nystatin (Nystatin Oral Susp) 5 ml PO QID [facility] Stop: 03/05/18 17:01 Last Admin: 02/26/18 21:38 Dose: 5 ml - Labs Labs: 02/27/18 04:25 02/27/18 04:25 PT 21.4 Seconds (9.8-13.1) H 02/27/18 04:25 INR 1.9 (0.9-1.2) H 02/27/18 04:25 APTT 42.6 Seconds (25.6-37.1) H 02/24/18 16:35 - Constitutional Appears: Non-toxic, No Acute Distress, Confused - Eye Exam Eye Exam: EOMI, PERRL - ENT Exam ENT Exam: Mucous Membranes Dry - Respiratory Exam Respiratory Exam: Clear to Ausculation Bilateral. absent: Rales, Rhonchi, Wheezes - Cardiovascular Exam Cardiovascular Exam: RRR, +S1, +S2 - GI/Abdominal Exam GI & Abdominal Exam: Soft, Normal Bowel Sounds. absent: Distended, Firm, Guarding, Rigid, Tenderness, Organomegaly Additional comments: Kelsey sign negative - Extremities Exam Extremities Exam: Normal Inspection. absent: Pedal Edema - Neurological Exam Neurological Exam: Altered, Awake - Psychiatric Exam Psychiatric exam: Anxious, Normal Affect - Skin Skin Exam: Dry, Warm Assessment and Plan - Assessment and Plan (Free Text) Assessment: Patient is an 82yo female with PMHx significant for multiple malignancies ( breast cancer s/p lumpectomy, lung cancer, multiple myeloma), anemia, chronic left LE DVT on Coumadin (currently held), atrial fibrillation, HTN, dyslipidemia and acquired hypothyroidism s/p thyroidectomy who presented to the hospital with generalized malaise and weakness. Our service is consulted to evaluate patients elevated LFTs. -Elevated LFTs, heaptic steatosis -Failure to thrive - 50lb weight loss over 3 years; R/O nutritional deficiencies -Coagulopthy - Coumadin held -Altered mental status/delirium -Oropharyngeal thrush Plan: -Pt currently NPO with plan for HIDA scan ordered by primary service to evaluate biliary dyskinesia/chronic cholecystitis -Vit B12 WNL -Folate pending -Magnesium supplementation recommended -Coumadin administered yesterday -LFTs may be related to hepatic steatosis as has been documented on prior imaging, HIDA pending -Autoimmune markers pending: MILLY, AMA, ASMA -IgG slightly elevated, IgM deficiency noted -Hepatitis serologies unremarkable -Cont Nystatin swish and swallow
[2018-02-27] MEDS: Ciprofloxacin 200mg/100ml D5W 100 ML IVPB SCH ×2 (09:37→22:27)
[2018-02-27] MEDS: Nystatin 100,000 Units/ml Oral Susp 5 ml UD PO SCH ×4 (09:38→22:28)
--- NOTE | 2018-02-27 12:05 | CP.PCM.PN ---
Subjective - Date & Time of Evaluation Date of Evaluation: 02/27/18 Time of Evaluation: 09:00 - Subjective Subjective: afeb on IV antibiotic for pseudomonas UTI Objective - Vital Signs/Intake and Output Vital Signs (last 24 hours): Temp Pulse Resp BP Pulse Ox 97.8 F 76 18 121/72 97 02/27/18 11:55 02/27/18 11:55 02/27/18 11:55 02/27/18 11:55 02/27/18 11:55 Intake and Output: 02/27/18 02/27/18 06:59 18:59 Intake Total 960 100 Balance 960 100 - Medications Medications: Current Medications Acetaminophen (Tylenol 325mg Tab) 650 mg PO Q4 PRN PRN Reason: Fever >100.4 F Last Admin: 02/21/18 14:28 Dose: 325 mg Acetaminophen (Tylenol 325mg Tab) 650 mg PO Q4 PRN PRN Reason: Pain, moderate (4-7) Last Admin: 02/27/18 01:53 Dose: 650 mg Ciprofloxacin (Cipro 200mg/100ml D5w) 100 mls @ 100 mls/hr IVPB Q12 [facility] PRN Reason: Protocol Last Admin: 02/27/18 09:37 Dose: 100 mls/hr Levothyroxine Sodium (Synthroid) 75 mcg PO DAILY@0630 [facility] Last Admin: 02/27/18 06:36 Dose: 75 mcg Nystatin (Nystatin Oral Susp) 5 ml PO QID [facility] Stop: 03/05/18 17:01 Last Admin: 02/27/18 09:38 Dose: 5 ml - Labs Labs: 02/27/18 04:25 02/27/18 04:25 PT 21.4 Seconds (9.8-13.1) H 02/27/18 04:25 INR 1.9 (0.9-1.2) H 02/27/18 04:25 APTT 42.6 Seconds (25.6-37.1) H 02/24/18 16:35 - Constitutional Appears: Non-toxic, Chronically Ill - Head Exam Head Exam: NORMOCEPHALIC - Eye Exam Eye Exam: PERRL - ENT Exam ENT Exam: Mucous Membranes Dry - Neck Exam Neck Exam: absent: Lymphadenopathy - Respiratory Exam Respiratory Exam: Decreased Breath Sounds - Cardiovascular Exam Cardiovascular Exam: REGULAR RHYTHM - GI/Abdominal Exam GI & Abdominal Exam: Distended, Soft Assessment and Plan (1) Cellulitis of left leg Status: Deleted (2) DVT, lower extremity, distal, chronic Status: Chronic (3) Renal insufficiency Status: Deleted (4) Dehydration Status: Acute - Assessment and Plan (Free Text) Assessment: cont rx for uti gi and heme eval in progress
--- NOTE | 2018-02-27 12:11 | CP.PCM.PN ---
Subjective - Date & Time of Evaluation Date of Evaluation: 02/27/18 Time of Evaluation: 11:00 - Subjective Subjective: Still delayed but reports to feeling better. Objective - Vital Signs/Intake and Output Vital Signs (last 24 hours): Temp Pulse Resp BP Pulse Ox 97.8 F 76 18 121/72 97 02/27/18 11:55 02/27/18 11:55 02/27/18 11:55 02/27/18 11:55 02/27/18 11:55 Intake and Output: 02/27/18 02/27/18 06:59 18:59 Intake Total 960 100 Balance 960 100 - Medications Medications: Current Medications Acetaminophen (Tylenol 325mg Tab) 650 mg PO Q4 PRN PRN Reason: Fever >100.4 F Last Admin: 02/21/18 14:28 Dose: 325 mg Acetaminophen (Tylenol 325mg Tab) 650 mg PO Q4 PRN PRN Reason: Pain, moderate (4-7) Last Admin: 02/27/18 01:53 Dose: 650 mg Ciprofloxacin (Cipro 200mg/100ml D5w) 100 mls @ 100 mls/hr IVPB Q12 [facility] PRN Reason: Protocol Last Admin: 02/27/18 09:37 Dose: 100 mls/hr Levothyroxine Sodium (Synthroid) 75 mcg PO DAILY@0630 [facility] Last Admin: 02/27/18 06:36 Dose: 75 mcg Nystatin (Nystatin Oral Susp) 5 ml PO QID [facility] Stop: 03/05/18 17:01 Last Admin: 02/27/18 09:38 Dose: 5 ml - Labs Labs: 02/27/18 04:25 02/27/18 04:25 PT 21.4 Seconds (9.8-13.1) H 02/27/18 04:25 INR 1.9 (0.9-1.2) H 02/27/18 04:25 APTT 42.6 Seconds (25.6-37.1) H 02/24/18 16:35 - Head Exam Head Exam: ATRAUMATIC - Eye Exam Eye Exam: Normal appearance - ENT Exam ENT Exam: Mucous Membranes Dry - Respiratory Exam Respiratory Exam: NORMAL BREATHING PATTERN - Cardiovascular Exam Cardiovascular Exam: +S1, +S2 - GI/Abdominal Exam GI & Abdominal Exam: Normal Bowel Sounds Assessment and Plan (1) Coagulopathy Assessment & Plan: on coumadin Status: Acute (2) Anemia Assessment & Plan: anemia w/u sent H/H fairly stable Status: Chronic (3) DVT, lower extremity, distal, chronic Assessment & Plan: hx of chronic dvt on coumadin; goal INR 2-3 Status: Chronic (4) History of treatment for malignancy Assessment & Plan: pt reports breast and lung cancer treatment several years ago ? multiple mylema; f/u monoclonal protein w/u would benefit from CT C/A/P with IV contrast once renal function improves; GFR still low Status: Acute
--- NOTE | 2018-02-27 13:33 | CP.PCM.PN ---
Subjective - Date & Time of Evaluation Date of Evaluation: 02/27/18 Time of Evaluation: 13:31 - Subjective Subjective: Surgery Pt lethargic. Resting in bed. No acute events overnight. Objective - Vital Signs/Intake and Output Vital Signs (last 24 hours): Temp Pulse Resp BP Pulse Ox 97.8 F 76 18 121/72 97 02/27/18 11:55 02/27/18 11:55 02/27/18 11:55 02/27/18 11:55 02/27/18 11:55 Intake and Output: 02/27/18 02/27/18 06:59 18:59 Intake Total 960 100 Balance 960 100 - Medications Medications: Current Medications Acetaminophen (Tylenol 325mg Tab) 650 mg PO Q4 PRN PRN Reason: Fever >100.4 F Last Admin: 02/21/18 14:28 Dose: 325 mg Acetaminophen (Tylenol 325mg Tab) 650 mg PO Q4 PRN PRN Reason: Pain, moderate (4-7) Last Admin: 02/27/18 01:53 Dose: 650 mg Ciprofloxacin (Cipro 200mg/100ml D5w) 100 mls @ 100 mls/hr IVPB Q12 [facility] PRN Reason: Protocol Last Admin: 02/27/18 09:37 Dose: 100 mls/hr Levothyroxine Sodium (Synthroid) 75 mcg PO DAILY@0630 [facility] Last Admin: 02/27/18 06:36 Dose: 75 mcg Nystatin (Nystatin Oral Susp) 5 ml PO QID [facility] Stop: 03/05/18 17:01 Last Admin: 02/27/18 12:43 Dose: 5 ml Warfarin Sodium (Coumadin) 3 mg PO QD5 [facility] PRN Reason: Protocol Stop: 02/27/18 17:01 - Labs Labs: 02/27/18 04:25 02/27/18 04:25 PT 21.4 Seconds (9.8-13.1) H 02/27/18 04:25 INR 1.9 (0.9-1.2) H 02/27/18 04:25 APTT 42.6 Seconds (25.6-37.1) H 02/24/18 16:35 - Constitutional Appears: No Acute Distress - Head Exam Head Exam: ATRAUMATIC, NORMAL INSPECTION, NORMOCEPHALIC - Eye Exam Eye Exam: EOMI, Normal appearance, PERRL Pupil Exam: NORMAL ACCOMODATION, PERRL - ENT Exam ENT Exam: Mucous Membranes Moist, Normal Exam - Neck Exam Neck Exam: Full ROM, Normal Inspection. absent: Lymphadenopathy - Respiratory Exam Respiratory Exam: Clear to Ausculation Bilateral, NORMAL BREATHING PATTERN - Cardiovascular Exam Cardiovascular Exam: REGULAR RHYTHM, +S1, +S2. absent: Murmur - GI/Abdominal Exam GI & Abdominal Exam: Soft, Normal Bowel Sounds. absent: Distended, Tenderness - Extremities Exam Extremities Exam: Full ROM, Normal Capillary Refill, Normal Inspection. absent : Joint Swelling, Pedal Edema - Back Exam Back Exam: NORMAL INSPECTION - Neurological Exam Neurological Exam: Alert, Awake, CN II-XII Intact, Oriented x3 - Psychiatric Exam Psychiatric exam: Normal Affect, Normal Mood - Skin Skin Exam: Dry, Intact, Normal Color, Warm Assessment and Plan - Assessment and Plan (Free Text) Assessment: 82F pericholycystic fluid and distention of gall bladder Plan: f/u HIDA Continue diet No plan for surgical intervention at this time Follow up GI recs BRADLEY Dunn
--- NOTE | 2018-02-27 13:44 | CP.PCM.PN ---
Subjective - Date & Time of Evaluation Date of Evaluation: 02/27/18 Time of Evaluation: 01:30 - Subjective Subjective: Pt remains lethargic Vital signes are stable Objective - Vital Signs/Intake and Output Vital Signs (last 24 hours): Temp Pulse Resp BP Pulse Ox 97.8 F 76 18 121/72 97 02/27/18 11:55 02/27/18 11:55 02/27/18 11:55 02/27/18 11:55 02/27/18 11:55 Intake and Output: 02/27/18 02/27/18 06:59 18:59 Intake Total 960 100 Balance 960 100 - Medications Medications: Current Medications Acetaminophen (Tylenol 325mg Tab) 650 mg PO Q4 PRN PRN Reason: Fever >100.4 F Last Admin: 02/21/18 14:28 Dose: 325 mg Acetaminophen (Tylenol 325mg Tab) 650 mg PO Q4 PRN PRN Reason: Pain, moderate (4-7) Last Admin: 02/27/18 01:53 Dose: 650 mg Ciprofloxacin (Cipro 200mg/100ml D5w) 100 mls @ 100 mls/hr IVPB Q12 [facility] PRN Reason: Protocol Last Admin: 02/27/18 09:37 Dose: 100 mls/hr Levothyroxine Sodium (Synthroid) 75 mcg PO DAILY@0630 [facility] Last Admin: 02/27/18 06:36 Dose: 75 mcg Nystatin (Nystatin Oral Susp) 5 ml PO QID [facility] Stop: 03/05/18 17:01 Last Admin: 02/27/18 12:43 Dose: 5 ml Warfarin Sodium (Coumadin) 3 mg PO QD5 [facility] PRN Reason: Protocol Stop: 02/27/18 17:01 - Labs Labs: 02/27/18 04:25 02/27/18 04:25 PT 21.4 Seconds (9.8-13.1) H 02/27/18 04:25 INR 1.9 (0.9-1.2) H 02/27/18 04:25 APTT 42.6 Seconds (25.6-37.1) H 02/24/18 16:35 - Constitutional Appears: Chronically Ill - Eye Exam Additional comments: No icterus - ENT Exam ENT Exam: Mucous Membranes Dry - Respiratory Exam Respiratory Exam: NORMAL BREATHING PATTERN Additional comments: Lungs clear - Cardiovascular Exam Cardiovascular Exam: REGULAR RHYTHM, +S1, +S2 Additional comments: No knox[s - GI/Abdominal Exam GI & Abdominal Exam: Soft Additional comments: No abdominal tenderness - Extremities Exam Additional comments: No edema or cyanosis Assessment and Plan - Assessment and Plan (Free Text) Assessment: Azotemia due to dehydration Creat remains normal UTI with Pseudomnas Lethargy Transaminesemia Chronic LLE DVT Hx/o lung Ca,MM,hypothyroidism Plan: Continue Abx per ID All labs reviewed Hepatitis profile
--- NOTE | 2018-02-27 16:02 | CP.PCM.PN ---
Subjective - Date & Time of Evaluation Date of Evaluation: 02/27/18 Time of Evaluation: 10:00 - Subjective Subjective: F/U VALERI lethargic , arousable , no specific complains , answer simple questions Objective - Vital Signs/Intake and Output Vital Signs (last 24 hours): Temp Pulse Resp BP Pulse Ox 98 F 102 H 18 122/78 97 02/27/18 13:00 02/27/18 13:00 02/27/18 11:55 02/27/18 13:00 02/27/18 11:55 Intake and Output: 02/27/18 02/27/18 06:59 18:59 Intake Total 960 100 Balance 960 100 - Medications Medications: Current Medications Acetaminophen (Tylenol 325mg Tab) 650 mg PO Q4 PRN PRN Reason: Fever >100.4 F Last Admin: 02/21/18 14:28 Dose: 325 mg Acetaminophen (Tylenol 325mg Tab) 650 mg PO Q4 PRN PRN Reason: Pain, moderate (4-7) Last Admin: 02/27/18 01:53 Dose: 650 mg Ciprofloxacin (Cipro 200mg/100ml D5w) 100 mls @ 100 mls/hr IVPB Q12 [facility] PRN Reason: Protocol Last Admin: 02/27/18 09:37 Dose: 100 mls/hr Levothyroxine Sodium (Synthroid) 75 mcg PO DAILY@0630 [facility] Last Admin: 02/27/18 06:36 Dose: 75 mcg Nystatin (Nystatin Oral Susp) 5 ml PO QID [facility] Stop: 03/05/18 17:01 Last Admin: 02/27/18 12:43 Dose: 5 ml Warfarin Sodium (Coumadin) 3 mg PO QD5 [facility] PRN Reason: Protocol Stop: 02/27/18 17:01 - Labs Labs: 02/27/18 04:25 02/27/18 04:25 PT 21.4 Seconds (9.8-13.1) H 02/27/18 04:25 INR 1.9 (0.9-1.2) H 02/27/18 04:25 APTT 42.6 Seconds (25.6-37.1) H 02/24/18 16:35 - Constitutional Appears: Chronically Ill - Head Exam Head Exam: NORMAL INSPECTION - Eye Exam Eye Exam: PERRL - ENT Exam ENT Exam: Normal Exam - Neck Exam Neck Exam: Normal Inspection - Respiratory Exam Respiratory Exam: NORMAL BREATHING PATTERN - Cardiovascular Exam Cardiovascular Exam: REGULAR RHYTHM - GI/Abdominal Exam GI & Abdominal Exam: Soft, Normal Bowel Sounds - Extremities Exam Additional comments: Edema BLE, resolving - Back Exam Additional comments: Healing wound R buttock - Neurological Exam Neurological Exam: Alert, CN II-XII Intact Additional comments: lethargic , arousable , slow mentation, Follows simple commands, generalized weakness. - Psychiatric Exam Psychiatric exam: Flat Affect - Skin Skin Exam: Warm Assessment and Plan (1) VALERI (acute kidney injury) Status: Acute (2) Dehydration Status: Acute (3) Multiple myeloma Status: Chronic (4) Hx of cancer of lung Status: Acute (5) DVT, lower extremity, distal, chronic Status: Chronic (6) Hx pulmonary embolism Status: Chronic (7) Cellulitis of left lower extremity Status: Acute (8) Decubitus ulcer of sacral region, stage 1 Status: Resolved (9) Hypothyroidism Status: Chronic - Assessment and Plan (Free Text) Plan: Hida Scan negative , elevated LFT's , Hepatic sreatosis VALERI dehydration improved , continue Cipro ,Synthroid , Coumadin
--- NOTE | 2018-02-27 17:12 | NM ---
PROCEDURE: Nuclear Medicine Hepatobiliary Scan HISTORY: r/o cholecystitis COMPARISON: 02/26/2018 abdominal ultrasound. Summary of findings on the comparison examination: Distended gallbladder with wall thickening and pericholecystic fluid. No cholelithiasis or biliary dilatation. TECHNIQUE: 5.6 mCi of technetium 99m Mebrofenin was administered intravenously. Planar images of the abdomen were obtained at 5 min intervals to 60 mins. Delayed images were also obtained. FINDINGS: LIVER: Timely and homogenous uptake. COMMON BILE DUCT: identified at 10 mins. GALLBLADDER: identified at 10 mins. SMALL BOWEL: Identified at 3 hours. Related activity in the small bowel likely related to preferential filling of a distended gallbladder. . IMPRESSION: Normal Hepatobiliary Scan. The cystic duct is patent.
[2018-02-27 20:45] LABS: HEPATITIS B SURFACE AG Negative (NEGATIVE)
[2018-02-27 21:03] LABS: HEPATITIS C ANTIBODY NEGATIVE (NEGATIVE)
[2018-02-28 06:29] LABS: INR 3.2 (0.9-1.2); PROTHROMBIN TIME 36.1 Seconds (9.8-13.1)
[2018-02-28] MEDS: Levothyroxine 75 MCG TAB PO SCH (07:10)
--- NOTE | 2018-02-28 08:42 | CP.PCM.PN ---
Subjective - Date & Time of Evaluation Date of Evaluation: 02/28/18 Time of Evaluation: 08:40 - Subjective Subjective: Surgery Pt seen and examined. No acute events. Denies abd pain, nausea. Tolerating diet. Objective - Vital Signs/Intake and Output Vital Signs (last 24 hours): Temp Pulse Resp BP Pulse Ox 97.8 F 82 18 145/82 98 02/28/18 07:55 02/28/18 07:55 02/28/18 07:55 02/28/18 07:55 02/28/18 07:55 - Medications Medications: Current Medications Acetaminophen (Tylenol 325mg Tab) 650 mg PO Q4 PRN PRN Reason: Fever >100.4 F Last Admin: 02/21/18 14:28 Dose: 325 mg Acetaminophen (Tylenol 325mg Tab) 650 mg PO Q4 PRN PRN Reason: Pain, moderate (4-7) Last Admin: 02/27/18 01:53 Dose: 650 mg Ciprofloxacin (Cipro 200mg/100ml D5w) 100 mls @ 100 mls/hr IVPB Q12 [facility]BECCA PRN Reason: Protocol Last Admin: 02/27/18 22:27 Dose: 100 mls/hr Levothyroxine Sodium (Synthroid) 75 mcg PO DAILY@0630 [facility] Last Admin: 02/28/18 07:10 Dose: 75 mcg Nystatin (Nystatin Oral Susp) 5 ml PO QID [facility] Stop: 03/05/18 17:01 Last Admin: 02/27/18 22:28 Dose: 5 ml - Labs Labs: 02/27/18 04:25 02/27/18 04:25 PT 36.1 Seconds (9.8-13.1) H D 02/28/18 05:15 INR 3.2 (0.9-1.2) H D 02/28/18 05:15 APTT 42.6 Seconds (25.6-37.1) H 02/24/18 16:35 - Constitutional Appears: No Acute Distress - Head Exam Head Exam: ATRAUMATIC, NORMAL INSPECTION, NORMOCEPHALIC - Eye Exam Eye Exam: EOMI, Normal appearance, PERRL Pupil Exam: NORMAL ACCOMODATION, PERRL - ENT Exam ENT Exam: Mucous Membranes Moist, Normal Exam - Neck Exam Neck Exam: Full ROM, Normal Inspection. absent: Lymphadenopathy - Respiratory Exam Respiratory Exam: Clear to Ausculation Bilateral, NORMAL BREATHING PATTERN - Cardiovascular Exam Cardiovascular Exam: REGULAR RHYTHM, +S1, +S2. absent: Murmur - GI/Abdominal Exam GI & Abdominal Exam: Soft, Normal Bowel Sounds. absent: Distended, Firm, Guarding, Rigid, Tenderness - Extremities Exam Extremities Exam: Full ROM, Normal Capillary Refill, Normal Inspection. absent : Joint Swelling, Pedal Edema - Back Exam Back Exam: NORMAL INSPECTION - Neurological Exam Neurological Exam: Alert, Awake, CN II-XII Intact, Oriented x3 - Psychiatric Exam Psychiatric exam: Normal Affect, Normal Mood - Skin Skin Exam: Dry, Intact, Normal Color, Warm Assessment and Plan - Assessment and Plan (Free Text) Assessment: 82F pericholycystic fluid and distention of gall bladder HIDA neg for cholecystitis , GB visualized in 10min. Plan: Continue diet No plan for surgical intervention at this time Will BRADLEY Dunn
--- NOTE | 2018-02-28 09:13 | CP.PCM.PN ---
Subjective - Date & Time of Evaluation Date of Evaluation: 02/28/18 Time of Evaluation: 07:45 - Subjective Subjective: PGY5 GI Fellow Progress Note Patient seen and examined bedside this morning. The patient has no complaints at present. Mostly one word responses to basic questions. No issues overnight. 12 system ROS limited given mentation Objective - Vital Signs/Intake and Output Vital Signs (last 24 hours): Temp Pulse Resp BP Pulse Ox 97.8 F 82 18 145/82 98 02/28/18 07:55 02/28/18 07:55 02/28/18 07:55 02/28/18 07:55 02/28/18 07:55 - Medications Medications: Current Medications Acetaminophen (Tylenol 325mg Tab) 650 mg PO Q4 PRN PRN Reason: Fever >100.4 F Last Admin: 02/21/18 14:28 Dose: 325 mg Acetaminophen (Tylenol 325mg Tab) 650 mg PO Q4 PRN PRN Reason: Pain, moderate (4-7) Last Admin: 02/27/18 01:53 Dose: 650 mg Ciprofloxacin (Cipro 200mg/100ml D5w) 100 mls @ 100 mls/hr IVPB Q12 [facility]BECCA PRN Reason: Protocol Last Admin: 02/27/18 22:27 Dose: 100 mls/hr Levothyroxine Sodium (Synthroid) 75 mcg PO DAILY@0630 [facility] Last Admin: 02/28/18 07:10 Dose: 75 mcg Nystatin (Nystatin Oral Susp) 5 ml PO QID [facility] Stop: 03/05/18 17:01 Last Admin: 02/27/18 22:28 Dose: 5 ml - Labs Labs: 02/27/18 04:25 02/27/18 04:25 PT 36.1 Seconds (9.8-13.1) H D 02/28/18 05:15 INR 3.2 (0.9-1.2) H D 02/28/18 05:15 APTT 42.6 Seconds (25.6-37.1) H 02/24/18 16:35 - Constitutional Appears: Non-toxic, No Acute Distress - Eye Exam Eye Exam: EOMI, PERRL - ENT Exam ENT Exam: Mucous Membranes Moist - Respiratory Exam Respiratory Exam: Clear to Ausculation Bilateral. absent: Rales, Rhonchi, Wheezes - Cardiovascular Exam Cardiovascular Exam: RRR, +S1, +S2 - GI/Abdominal Exam GI & Abdominal Exam: Soft, Normal Bowel Sounds. absent: Distended, Firm, Guarding, Rigid, Tenderness, Organomegaly - Extremities Exam Extremities Exam: Normal Inspection. absent: Pedal Edema - Neurological Exam Neurological Exam: Altered, Awake - Psychiatric Exam Psychiatric exam: Normal Affect, Normal Mood - Skin Skin Exam: Dry, Warm Assessment and Plan - Assessment and Plan (Free Text) Assessment: Patient is an 82yo female with PMHx significant for multiple malignancies ( breast cancer s/p lumpectomy, lung cancer, multiple myeloma), anemia, chronic left LE DVT on Coumadin (currently held), atrial fibrillation, HTN, dyslipidemia and acquired hypothyroidism s/p thyroidectomy who presented to the hospital with generalized malaise and weakness. Our service is consulted to evaluate patients elevated LFTs. -Elevated LFTs, heaptic steatosis -Failure to thrive - 50lb weight loss over 3 years; R/O nutritional deficiencies -Coagulopthy - Coumadin held -Altered mental status/delirium -Oropharyngeal thrush, improved Plan: -HIDA unremarkable - no evidence for dyskinesia/chronic cholecystitis -B12/Folate WNL -Coumadin administration ongoing with INR 3 today -Suspect LFT abnormalities to be 2/2 hepatic steatosis, awaiting liver autoimmune markers - MILLY, AMA, ASMA -Cont Nystatin swish/swallow for total of 7 days Case discussed with Dr Crooks
[2018-02-28] MEDS: Nystatin 100,000 Units/ml Oral Susp 5 ml UD PO SCH ×2 (09:42→13:19)
[2018-02-28] MEDS: Ciprofloxacin 200mg/100ml D5W 100 ML IVPB SCH (09:42)
--- NOTE | 2018-02-28 11:23 | CP.PCM.PN ---
Subjective - Date & Time of Evaluation Date of Evaluation: 02/28/18 Time of Evaluation: 11:20 - Subjective Subjective: General surgery progress note. I agree with the previous surgical scrub technician note. Pt tam and examined in bed this morning. SHe denies any abdominal pain, (-) N/V/D/C. PE: Gen: Pt laying in bed in NAD Skin: Warm and dry Cardio s1s2 RRR Lungs: CTA bilaterally abd: Soft NTND A/P No surgical intervention needed as pt does not have cholecystitis nor has any abdominal symptoms. Surgery will sign off, please reconsult as needed Case discussed with surgical team Objective - Vital Signs/Intake and Output Vital Signs (last 24 hours): Temp Pulse Resp BP Pulse Ox 97.8 F 82 18 145/82 98 02/28/18 07:55 02/28/18 07:55 02/28/18 07:55 02/28/18 07:55 02/28/18 07:55 - Medications Medications: Current Medications Acetaminophen (Tylenol 325mg Tab) 650 mg PO Q4 PRN PRN Reason: Fever >100.4 F Last Admin: 02/21/18 14:28 Dose: 325 mg Acetaminophen (Tylenol 325mg Tab) 650 mg PO Q4 PRN PRN Reason: Pain, moderate (4-7) Last Admin: 02/27/18 01:53 Dose: 650 mg Ciprofloxacin (Cipro 200mg/100ml D5w) 100 mls @ 100 mls/hr IVPB Q12 REBECCA PRN Reason: Protocol Last Admin: 02/28/18 09:42 Dose: 100 mls/hr Levothyroxine Sodium (Synthroid) 75 mcg PO DAILY@0630 [facility] Last Admin: 02/28/18 07:10 Dose: 75 mcg Nystatin (Nystatin Oral Susp) 5 ml PO QID [facility] Stop: 03/05/18 17:01 Last Admin: 02/28/18 09:42 Dose: 5 ml - Labs Labs: 02/27/18 04:25 02/27/18 04:25 PT 36.1 Seconds (9.8-13.1) H D 02/28/18 05:15 INR 3.2 (0.9-1.2) H D 02/28/18 05:15 APTT 42.6 Seconds (25.6-37.1) H 02/24/18 16:35 Assessment and Plan - Assessment and Plan (Free Text) Assessment: see above
--- NOTE | 2018-02-28 13:13 | CP.PCM.DIS ---
Provider - Provider Date of Admission: 02/19/18 00:42 Attending physician: Franklyn Garcia MD Diagnosis - Discharge Diagnosis (1) VALERI (acute kidney injury) Status: Acute (2) Dehydration Status: Acute Priority: High (3) Multiple myeloma Status: Chronic (4) Hx of cancer of lung Status: Acute (5) DVT, lower extremity, distal, chronic Status: Chronic Priority: High (6) Hx pulmonary embolism Status: Chronic (7) Cellulitis of left lower extremity Status: Acute (8) Decubitus ulcer of sacral region, stage 1 Status: Resolved (9) Hypothyroidism Status: Chronic Priority: Medium Hospital Course - Lab Results Lab Results: Micro Results 02/21/18 17:24 Blood-Venous Blood Culture - Final NO GROWTH AFTER 5 DAYS 02/21/18 17:24 Blood-Venous Gram Stain - Final TEST NOT PERFORMED 02/23/18 18:49 Urine,Catheterized Urine Culture - Final No Growth (<1,000 CFU/ML) 02/18/18 22:05 Blood Blood Culture - Final NO GROWTH AFTER 5 DAYS 02/18/18 22:05 Blood Gram Stain - Final TEST NOT PERFORMED 02/18/18 22:51 Blood Blood Culture - Final NO GROWTH AFTER 5 DAYS 02/18/18 22:51 Blood Gram Stain - Final TEST NOT PERFORMED 02/20/18 08:48 Urine,Catheterized Urine Culture - Final Pseudomonas Aeruginosa 02/18/18 22:51 Urine Urine Culture - Final 50-100,000 CFU/ML. MULTIPLE SPECIES. SUGGEST REPEAT SPECIMEN. Most Recent Lab Values WBC 10.6 K/uL (4.8-10.8) 02/27/18 04:25 RBC 2.65 Mil/uL (3.80-5.20) L 02/27/18 04:25 Hgb 9.3 g/dL (12.0-16.0) L 02/27/18 04:25 Hct 27.3 % (34.0-47.0) L 02/27/18 04:25 MCV 102.9 fl (81.0-99.0) H 02/27/18 04:25 MCH 35.0 pg (27.0-31.0) H 02/27/18 04:25 MCHC 34.0 g/dL (33.0-37.0) 02/27/18 04:25 RDW 14.1 % (11.5-14.5) 02/27/18 04:25 Plt Count 137 K/uL (130-400) 02/27/18 04:25 MPV 9.7 fl (7.2-11.7) 02/22/18 05:00 Neut % (Auto) 79.9 % (50.0-75.0) H 02/22/18 05:00 Lymph % (Auto) 14.5 % (20.0-40.0) L 02/22/18 05:00 [place] % (Auto) 3.4 % (0.0-10.0) 02/22/18 05:00 Eos % (Auto) 1.3 % (0.0-4.0) 02/22/18 05:00 Baso % (Auto) 0.9 % (0.0-2.0) 02/22/18 05:00 Neut # (Auto) 2.4 K/uL (1.8-7.0) 02/22/18 05:00 Lymph # (Auto) 0.4 K/uL (1.0-4.3) L 02/22/18 05:00 [place] # (Auto) 0.1 K/uL (0.0-0.8) 02/22/18 05:00 Eos # (Auto) 0.0 K/uL (0.0-0.7) 02/22/18 05:00 Baso # (Auto) 0.0 K/uL (0.0-0.2) 02/22/18 05:00 PT 36.1 Seconds (9.8-13.1) H D 02/28/18 05:15 INR 3.2 (0.9-1.2) H D 02/28/18 05:15 APTT 42.6 Seconds (25.6-37.1) H 02/24/18 16:35 Sodium 139 mmol/l (132-148) 02/27/18 04:25 Potassium 3.8 MMOL/L (3.6-5.0) 02/27/18 04:25 Chloride 103 mmol/L (98-107) 02/27/18 04:25 Carbon Dioxide 27 mmol/L (22-30) 02/27/18 04:25 Anion Gap 13 (10-20) 02/27/18 04:25 BUN 19 mg/dl (7-17) H 02/27/18 04:25 Creatinine 1.0 mg/dl (0.7-1.2) 02/27/18 04:25 Est GFR ( Amer) > 60 02/27/18 04:25 Est GFR (Non-Af Amer) 53 02/27/18 04:25 POC Glucose (mg/dL) 107 mg/dL (65-110) 02/19/18 00:40 Random Glucose 107 mg/dL (65-105) H 02/27/18 04:25 Lactic Acid 1.1 MMOL/L (0.7-2.1) 02/21/18 17:24 Calcium 8.4 mg/dL (8.4-10.2) 02/27/18 04:25 Phosphorus 2.1 mg/dl (2.5-4.5) L 02/26/18 15:11 Magnesium 1.7 MG/DL (1.6-2.3) 02/26/18 15:11 Total Bilirubin 0.6 mg/dl (0.2-1.3) 02/27/18 04:25 AST 171 U/L (14-36) H 02/27/18 04:25 ALT 113 U/L (9-52) H 02/27/18 04:25 Alkaline Phosphatase 107 U/L (38-126) 02/27/18 04:25 Ammonia < 9 umo/L (11-51) L 02/23/18 12:43 Troponin I < 0.0120 ng/mL (0.00-0.120) 02/19/18 14:40 NT-Pro-B Natriuret Pep 209 pg/ml (0-900) 02/18/18 23:35 Total Protein 6.6 G/DL (6.3-8.2) 02/27/18 04:25 Albumin 3.0 g/dL (3.5-5.0) L 02/27/18 04:25 Globulin 3.6 gm/dL (2.2-3.9) 02/27/18 04:25 Albumin/Globulin Ratio 0.8 (1.0-2.1) L 02/27/18 04:25 Triglycerides 108 mg/DL (0-149) 02/19/18 04:20 Cholesterol 180 mg/dL (0-199) 02/19/18 04:20 LDL Cholesterol Direct 116 mg/dL (0-129) 02/19/18 04:20 HDL Cholesterol 23 MG/DL (30-70) L 02/19/18 04:20 Vitamin B12 > 1000 pg/mL (239-931) H 02/26/18 15:11 Folate 8.0 ng/mL 02/26/18 15:11 Procalcitonin 0.41 NG/ML (0.19-0.49) 02/21/18 17:45 Thyroxine (T4) 6.81 ug/dl (5.5-11.0) 02/24/18 05:21 Total T3 0.325 nmol/L (1.49-2.60) L 02/24/18 05:21 TSH 3rd Generation 9.14 mIU/ML (0.46-4.68) H 02/24/18 05:21 PTH Intact Whole Molec 44 pg/mL (14-64) 02/19/18 04:20 Urine Color Yellow (YELLOW) 02/23/18 18:49 Urine Clarity Cloudy (Clear) 02/23/18 18:49 Urine pH 5.0 (5.0-8.0) 02/23/18 18:49 Ur Specific [place] 1.015 (1.003-1.030) 02/23/18 18:49 Urine Protein 100 mg/dL (NEGATIVE) 02/23/18 18:49 Urine Glucose (UA) Neg mg/dL (Normal) 02/23/18 18:49 Urine Ketones Negative mg/dL (NEGATIVE) 02/23/18 18:49 Urine Blood Moderate (NEGATIVE) 02/23/18 18:49 Urine Nitrate Negative (NEGATIVE) 02/23/18 18:49 Urine Bilirubin Negative (NEGATIVE) 02/23/18 18:49 Urine Urobilinogen 0.2-1.0 mg/dL (0.2-1.0) 02/23/18 18:49 Ur Leukocyte Esterase Large [place]/uL (Negative) 02/23/18 18:49 Urine RBC (Auto) 1 /hpf (0-3) 02/23/18 18:49 Urine WBC Clumps (Auto) Few /hpf (NONE) H 02/23/18 18:49 Urine Microscopic WBC 17 /hpf (0-5) H 02/23/18 18:49 Ur Squamous Epith Cells 7 /hpf (0-5) H 02/23/18 18:49 Amorphous Sediment Rare /ul (<OCC) H 02/23/18 18:49 Urine Bacteria Rare (<OCC) 02/23/18 18:49 Granular Casts (Auto) 1 /lpf (0-1) 02/23/18 18:49 Urine Osmolality 304 mosm/kg (300-1000) 02/19/18 08:00 Ur Random Creatinine 69.8 mg/dL 02/19/18 08:00 Ur Random Sodium < 5 meq/L 02/19/18 08:00 Ur Random Potassium 22.4 mmol/L 02/19/18 08:00 IgG 1914.9 mg/dL (700.0-1600.0) H 02/26/18 15:11 IgM < 25.0 mg/dL (40.0-230.0) L 02/26/18 15:11 Serum Immunofixation Detected (Not Detected) H 02/20/18 14:19 Hepatitis A IgM Ab Negative (NEGATIVE) 02/26/18 12:54 Hep Bs Antigen Negative (NEGATIVE) 02/27/18 14:58 Hep Bs Antibody Negative (NEGATIVE) 02/27/18 14:58 Hep B Core IgM Ab Negative (NEGATIVE) 02/26/18 12:54 Hepatitis C Antibody Negative (NEGATIVE) 02/27/18 14:58 Influenza Typ A,B (EIA) Negative for flu a/b (NEGATIVE) 02/21/18 17:57 Discharge Exam - Head Exam Head Exam: ATRAUMATIC, NORMOCEPHALIC Discharge Plan - Discharge Medications Prescriptions: Ciprofloxacin HCl [Cipro] 500 mg PO Q12 #10 tablet - Follow Up Plan Condition: FAIR Disposition: HOME/ ROUTINE Instructions: Dehydration, Adult (DC)
[2018-02-28 15:49] VITALS: BP 112/71; PULSE 82; RESP 20; TEMP 97.9; O2SAT 97
== END 2018-02-28 17:15 | DRG 683 ==
LOC: H.ER 21:46 → H.ERHOLD 02-19 00:42 → H.TEL 02-19 01:45
PROVIDERS: ADMIT Internal Medicine Pulmonary Disease; ATTEND Internal Medicine Pulmonary Disease
DX: N17.9 Acute kidney failure, unspecified (principal); L03.116 Cellulitis of left lower limb; C90.00 Multiple myeloma not having achieved remission; I82.502 Chronic embolism and thrombosis of unspecified deep veins of left lower extremity; N39.0 Urinary tract infection, site not specified; B37.0 Candidal stomatitis; L89.151 Pressure ulcer of sacral region, stage 1; E86.0 Dehydration; Z86.711 Personal history of pulmonary embolism; Z85.118 Personal history of other malignant neoplasm of bronchus and lung; Z85.3 Personal history of malignant neoplasm of breast; E78.00 Pure hypercholesterolemia, unspecified; I10 Essential (primary) hypertension; E89.0 Postprocedural hypothyroidism; D64.9 Anemia, unspecified; I48.91 Unspecified atrial fibrillation; M06.9 Rheumatoid arthritis, unspecified; E78.5 Hyperlipidemia, unspecified; Z79.01 Long term (current) use of anticoagulants; R79.89 Other specified abnormal findings of blood chemistry; R63.4 Abnormal weight loss; Z68.22 Body mass index [BMI] 22.0-22.9, adult; B96.5 Pseudomonas (aeruginosa) (mallei) (pseudomallei) as the cause of diseases classified elsewhere; R79.1 Abnormal coagulation profile; R74.0 Nonspecific elevation of levels of transaminase and lactic acid dehydrogenase [LDH]; R62.7 Adult failure to thrive